=== PATIENT | female | born 1955 | race Caucasian/White ===

== ENCOUNTER 2016-10-13 16:05 | Inpatient (IN) | payer BC ==
[~2016-10-13] VITALS: Ht 167.6 cm; Wt 47.1 kg
[~2016-10-13 16:05] MED LIST: ADVI200T17 PO; CLOP75TA PO; ENAL10TA7 PO; FOSA70TA PO; MELA10TA PO; MUPI2OIN TOPICAL; TRAM50TA PO
[2016-10-13 16:07] VITALS: BP 201/94; PULSE 106; RESP 20; TEMP 98.1; O2SAT 97
[2016-10-13 16:18] VITALS: BP 202/94; PULSE 105; RESP 16; O2SAT 100
--- NOTE | 2016-10-13 16:36 | PD ---
HPI Chief Complaint: Pain: Acute or Chronic Time Seen by Provider: 16:25 Travel History International Travel<30 days: No Contact w/Intl Traveler<30days: No Traveled to known affect area: No History of Present Illness HPI 61-year-old female presents the emergency Department with worsening left second toe pain. Patient states that she's had trouble with this toe since last February. Originally she was evaluated for vascular issue and had stents placed in her left leg. But has continued to have a nonhealing wound on the tip of the second toe of the left foot. Patient has been seen by Dr. Marcelo who referred her for vascular surgery. Patient states she's had increasing pain and redness on the toe and on the dorsal foot over the past week. Patient saw her primary care physician Court Rea today and was referred to the ER for further evaluation and treatment. Patient states that the pain varies from 6-10 over to 10 over 10. She states walking makes it feel better. Patient has no history of diabetes. She does take medication for blood pressure. She states she's been taking Lortab at home without good pain control. She is allergic to codeine. PFSH Past Medical History Cancer: No Cardiovascular Problems: Yes Chest Pain: No Congestive Heart Failure: No Diabetes: No Endocrine: No Gastrointestinal Disorders: Yes GERD: No Glaucoma: No Genitourinary: No Hepatitis: No Hiatal Hernia: No Hypertension: Yes Immune Disorder: No Musculoskeletal: Yes Neurologic: No Psychiatric: No Reproductive: No Respiratory: No Integumentary: Yes Thyroid Disease: No Tetanus Vaccination: > 5 Years Influenza Vaccination: Yes Dilation and Curettage (D&C): Yes Past Surgical History Abdominal Surgery: No AICD: No Body Medical Devices: SCREWS IN L SHOULDER Cardiac Surgery: Yes (ANGIOGRAM WITH RUNOFF) Ear Surgery: No Endocrine Surgery: No Eye Surgery: No Genitourinary Surgery: No Gynecologic Surgery: Yes Joint Replacement: No Oral Surgery: Yes (T&A) Pacemaker: No Thoracic Surgery: No Social History Alcohol Use: No Tobacco Use: No Substance Use: No Allergies-Medications (Allergen,Severity, Reaction): Coded Allergies: Codeine (Verified Allergy, Mild, Dizziness, 10/13/16) Reported Meds & Prescriptions Reported Meds & Active Scripts Active Reported Mupirocin Topical (Mupirocin) 2 % Oint 1 Applic TOPICAL DAILY Clopidogrel (Clopidogrel Bisulfate) 75 Mg Tab 75 Mg PO DAILY Advil Pm (Ibuprofen-Diphenhydramine) 200-38 Mg Tab 2 Tab PO HS PRN Melatonin Cr (Melatonin) 10 Mg Tab 1 Tab PO HS Enalapril-Hydrochorothiazide (Enalapril-Hydrochlorothiazide) 10-25 Mg Tab 1 Tab PO DAILY Fosamax (Alendronate Sodium) 70 Mg Tab 70 Mg PO Q7D Review of Systems Except as stated in HPI: all other systems reviewed are Neg General / Constitutional: No: Fever Eyes: No: Visual changes HENT: No: Headaches Cardiovascular: No: Chest Pain or Discomfort Respiratory: No: Shortness of Breath Gastrointestinal: No: Abdominal Pain Genitourinary: No: Dysuria Musculoskeletal: No: Pain Skin: Positive Lesions, No Rash Neurologic: No: Weakness Psychiatric: No: Depression Endocrine: No: Polydipsia Hematologic/Lymphatic: No: Easy Bruising Physical Exam Narrative GENERAL: Patient is in moderate distress. SKIN: Warm and dry. Normal color. Normal turgor. Patient has obvious black eschar on the tip of the left second toe with localized swelling and erythema with lymphangitis along the dorsal left foot. No significant edema of the foot is noted. Pulses are present. HEAD: Atraumatic. Normocephalic. EYES: Pupils equal and round. No scleral icterus. No injection or drainage. ENT: No nasal bleeding or discharge. Mucous membranes pink and moist. NECK: Trachea midline. No JVD. CARDIOVASCULAR: Regular rate and rhythm. RESPIRATORY: No accessory muscle use. Clear to auscultation. Breath sounds equal bilaterally. MUSCULOSKELETAL: Extremities without clubbing, cyanosis, or edema. No obvious deformities. NEUROLOGICAL: Awake and alert. No obvious cranial nerve deficits. Motor grossly within normal limits. Five out of 5 muscle strength in the arms and legs. Normal speech. PSYCHIATRIC: Appropriate mood and affect; insight and judgment normal. Data Data Last Documented VS Vital Signs Date Time Temp Pulse Resp B/P Pulse Ox O2 Delivery O2 Flow Rate FiO2 10/13/16 18:13 16 10/13/16 18:00 91 181/84 100 Room Air 10/13/16 16:07 98.1 Orders Complete Blood Count With Diff (10/13/16 16:36) Blood Culture (10/13/16 16:36) Iv Access Insert/Monitor (10/13/16 16:36) Cefazolin Inj (Ancef Inj) (10/13/16 16:45) Clindamycin Inj (Cleocin Inj) (10/13/16 16:45) Comprehensive Metabolic Panel (10/13/16 16:36) Toe (Min 2vws) (10/13/16 17:20) Morphine Inj (Morphine Inj) (10/13/16 17:45) Consult Podiatry (10/13/16 ) Labs Laboratory Tests Test 10/13/16 16:45 White Blood Count 9.2 TH/MM3 Red Blood Count 3.85 MIL/MM3 Hemoglobin 11.9 GM/DL Hematocrit 34.7 % Mean Corpuscular Volume 90.2 FL Mean Corpuscular Hemoglobin 30.8 PG Mean Corpuscular Hemoglobin 34.2 % Concent Red Cell Distribution Width 14.5 % Platelet Count 236 TH/MM3 Mean Platelet Volume 8.2 FL Neutrophils (%) (Auto) 69.9 % Lymphocytes (%) (Auto) 21.6 % Monocytes (%) (Auto) 6.1 % Eosinophils (%) (Auto) 1.8 % Basophils (%) (Auto) 0.6 % Neutrophils # (Auto) 6.5 TH/MM3 Lymphocytes # (Auto) 2.0 TH/MM3 Monocytes # (Auto) 0.6 TH/MM3 Eosinophils # (Auto) 0.2 TH/MM3 Basophils # (Auto) 0.1 TH/MM3 CBC Comment DIFF FINAL Differential Comment Sodium Level 144 MEQ/L Potassium Level 3.5 MEQ/L Chloride Level 108 MEQ/L Carbon Dioxide Level 27.2 MEQ/L Anion Gap 9 MEQ/L Blood Urea Nitrogen 28 MG/DL Creatinine 1.03 MG/DL Estimat Glomerular Filtration 54 ML/MIN Rate Random Glucose 99 MG/DL Calcium Level 8.9 MG/DL Total Bilirubin 0.2 MG/DL Aspartate Amino Transf 17 U/L (AST/SGOT) Alanine Aminotransferase 20 U/L (ALT/SGPT) Alkaline Phosphatase 64 U/L Total Protein 6.9 GM/DL Albumin 3.9 GM/DL [facility] Medical Decision Making Medical Screen Exam Complete: Yes Emergency Medical Condition: Yes Differential Diagnosis Vascular deficiency left foot. Chronic left foot wound. Osteomyelitis. Narrative Course Patient is medically stable at time of exam. Labs ordered including CBC, CMP, PT PTT and INR, and blood cultures 2. IV access is obtained patient is given 4 mg morphine. X-ray of the left foot is ordered to evaluate for osteomyelitis. Call was placed to Dr. Marcelo and the patient is discussed. He recommends admission and consultation to him. 1814 hrs. call was placed to the hospitalist for admission. Dr. Marcelo has been consulted. Diagnosis Primary Impression: Ischemic ulcer of toe of left foot with necrosis of muscle Admitting Information Admitting Physician Requests: Admit Condition: Stable Simón East Oct 13, 2016 16:36
[2016-10-13] MEDS ORDERED: CLINDAMYCIN INJ 900 MG in SODIUM CHLORIDE 0.9% INJ 100 ML IV ONE (16:45)
[2016-10-13 17:00] VITALS: BP 163/77; PULSE 86; RESP 16; O2SAT 100
[2016-10-13 17:20] LABS: AUTOMATED NEUTROPHIL # 6.5 TH/MM3 (1.8-7.7); BASOPHIL # 0.1 TH/MM3 (0-0.2); BASOPHIL % 0.6 % (0.0-2.0); EOSINOPHIL # 0.2 TH/MM3 (0-0.4); EOSINOPHIL % 1.8 % (0.0-4.0); HEMATOCRIT 34.7 % (35.0-46.0); HEMO FLAGS DIFF FINAL; LYMPH % 21.6 % (9.0-44.0); MEAN CELL VOLUME 90.2 FL (80.0-100.0); MEAN CORPUSCULAR HEMOGLOBIN 30.8 PG (27.0-34.0); MEAN CORPUSCULAR HGB CONC 34.2 % (32.0-36.0); MONO % 6.1 % (0.0-8.0); NEUT % 69.9 % (16.0-70.0); PLATELET COUNT 236 TH/MM3 (150-450); RED BLOOD COUNT 3.85 MIL/MM3 (4.00-5.30); RED CELL DISTRIBUTION WIDTH 14.5 % (11.6-17.2); WHITE BLOOD COUNT 9.2 TH/MM3 (4.0-11.0)
--- NOTE | 2016-10-13 17:42 | RADRPT ---
EXAM DATE/TIME: 10/13/2016 17:31 [place] COMPARISON: No previous studies available for comparison. INDICATIONS : Left second toe infection for 6 months. Patient has had increased pain in last 10 days MEDICAL HISTORY : None. SURGICAL HISTORY : None. ENCOUNTER: Initial ACUITY: 4 - 6 months PAIN SCORE: 10/10 LOCATION: Left 2nd digit FINDINGS: Examination of the second digit of the left foot demonstrates no evidence of fracture or dislocation. No radiopaque foreign bodies are seen. There is soft tissue swelling at the distal aspect of the se cond digit. The bones are osteopenic. CONCLUSION: No bony destruction is seen. Rodo Martinez MD on October 13, 2016 at 17:40 Board Certified Radiologist. This report was verified electronically.
[2016-10-13] MEDS ORDERED: MORPHINE SULFATE 4 MG/ML INJ IV PUSH ONE (17:45)
[2016-10-13 18:00] VITALS: BP 181/84; PULSE 91; RESP 16; O2SAT 100
[2016-10-13 18:12] LABS: ALKALINE PHOSPHATASE 64 U/L (45-117); TOTAL BILIRUBIN ADULT 0.2 MG/DL (0.2-1.0)
[2016-10-13 18:15] LABS: ALT (GPT) 20 U/L (10-53); ANION GAP 9 MEQ/L (5-15); AST (GOT) 17 U/L (15-37); BICARBONATE 27.2 MEQ/L (21.0-32.0); BLOOD UREA NITROGEN 28 MG/DL (7-18); CHLORIDE 108 MEQ/L (98-107); GLOMERULAR FILTRATION RATE 54 ML/MIN (>89); POTASSIUM 3.5 MEQ/L (3.5-5.1); SODIUM (NA) 144 MEQ/L (136-145)
--- NOTE | 2016-10-13 18:57 | PD ---
Data Data Last Documented VS Vital Signs Date Time Temp Pulse Resp B/P Pulse Ox O2 Delivery O2 Flow Rate FiO2 10/13/16 18:13 16 10/13/16 18:00 91 181/84 100 Room Air 10/13/16 16:07 98.1 Orders Complete Blood Count With Diff (10/13/16 16:36) Blood Culture (10/13/16 16:36) Iv Access Insert/Monitor (10/13/16 16:36) Cefazolin Inj (Ancef Inj) (10/13/16 16:45) Clindamycin Inj (Cleocin Inj) (10/13/16 16:45) Comprehensive Metabolic Panel (10/13/16 16:36) Toe (Min 2vws) (10/13/16 17:20) Morphine Inj (Morphine Inj) (10/13/16 17:45) Consult Podiatry (10/13/16 ) Labs Laboratory Tests Test 10/13/16 16:45 White Blood Count 9.2 TH/MM3 Red Blood Count 3.85 MIL/MM3 Hemoglobin 11.9 GM/DL Hematocrit 34.7 % Mean Corpuscular Volume 90.2 FL Mean Corpuscular Hemoglobin 30.8 PG Mean Corpuscular Hemoglobin 34.2 % Concent Red Cell Distribution Width 14.5 % Platelet Count 236 TH/MM3 Mean Platelet Volume 8.2 FL Neutrophils (%) (Auto) 69.9 % Lymphocytes (%) (Auto) 21.6 % Monocytes (%) (Auto) 6.1 % Eosinophils (%) (Auto) 1.8 % Basophils (%) (Auto) 0.6 % Neutrophils # (Auto) 6.5 TH/MM3 Lymphocytes # (Auto) 2.0 TH/MM3 Monocytes # (Auto) 0.6 TH/MM3 Eosinophils # (Auto) 0.2 TH/MM3 Basophils # (Auto) 0.1 TH/MM3 CBC Comment DIFF FINAL Differential Comment Sodium Level 144 MEQ/L Potassium Level 3.5 MEQ/L Chloride Level 108 MEQ/L Carbon Dioxide Level 27.2 MEQ/L Anion Gap 9 MEQ/L Blood Urea Nitrogen 28 MG/DL Creatinine 1.03 MG/DL Estimat Glomerular Filtration 54 ML/MIN Rate Random Glucose 99 MG/DL Calcium Level 8.9 MG/DL Total Bilirubin 0.2 MG/DL Aspartate Amino Transf 17 U/L (AST/SGOT) Alanine Aminotransferase 20 U/L (ALT/SGPT) Alkaline Phosphatase 64 U/L Total Protein 6.9 GM/DL Albumin 3.9 GM/DL MDM Supervised Visit with TESSIE: Yes Narrative Course I, Dr. Kimbrough, have reviewed the advance practice practioner's documentation and am in agreement, met with the patient face to face, made the diagnosis, and the medical decision making was done by me. *My assessment and Findings: 61-year-old female vasculopath here with complaint of pain in the left second toe that she is had troubles with since February. History of vascular evaluation with Dr. Cobos and podiatry evaluation with Dr. Marcelo. Patient has been having increasing pain, redness and necrosis of the toe over the course the last week prompting ER visit. Moderate pain on exam, distal pulses are diminished albeit present. The toe is necrotic- appearing, dusky. Differential includes dry gangrene, peripheral vascular disease, osteomyelitis. Podiatry consulted and agrees with admission for vascular evaluation and amputation. Vascular surgery consult placed for her vascular surgeon Dr. Cobos and patient will be admitted to medicine for further management. Diagnosis Primary Impression: Ischemic ulcer of toe of left foot with necrosis of muscle Condition: Stable Amy Kimbrough MD Oct 13, 2016 18:56
[2016-10-13] MEDS ORDERED: HYDROmorphone HCL PF 1 MG/ML VIAL IV PUSH ONE (19:00)
[2016-10-13 19:11] VITALS: BP 161/83; PULSE 97; RESP 18; O2SAT 98
[2016-10-13] MEDS ORDERED: ACETAMINOPHEN 325 MG TAB PO PRN (19:15)
[2016-10-13] MEDS ORDERED: SODIUM CHLORIDE 0.9% FLUSH 5 ML FLUSH FLUSH PRN (19:15)
[2016-10-13] MEDS ORDERED: BISACODYL 10 MG SUPP PR PRN (19:15)
--- NOTE | 2016-10-13 19:15 | HHI.HP ---
HPI Service [facility] Primary Care Physician Non-Staff Admission Diagnosis Ischemic Necrotic Toe/Cellulitis Diagnoses: (1) Ischemic ulcer of toe of left foot with necrosis of muscle Diagnosis: Principal (2) HTN (hypertension) Diagnosis: Principal (3) Renal insufficiency Diagnosis: Principal Travel History International Travel<30 Days: No Contact w/Intl Traveler <30 Da: No Traveled to Known Affected Are: No History of Present Illness This is a 61-year-old female with a PMH of HTN, PVD and Chronic Foot Ulcer who was referred to the ER by her PCP for admission secondary to increasing left toe pain. Per patient, she has had ongoing left toe ulcer since February and has been following with Dr. Marcelo as outpatient. Seen today by PCP and found to have worsening necrosis of left 2nd toe, referred to ER for eval by Vascular Sx. Denies fever or chills. Reports small "blister" at bottom of 2nd right toe as well, states that has been ongoing for few days. On arrival, BP 201/94, HR 106, O2 sat 97% on RA, Afebrile. CBC essentially unremarkable. Creatinine 1.03, produces 0.82 on 07/17/16. Toe X-ray with no bony destruction. Dr. Marcelo and Dr. Cobos consulted by ER physician, will evaluate for possible intervention. S/p Blood Cultures, Clinda and Ancef IV. Review of Systems Except as stated in HPI: all other systems reviewed are Neg ROS: 14 point review of systems otherwise negative. Past Family Social History Past Medical History PMH: HTN, PVD and Chronic Foot Ulcer Past Surgical History PAST SURGICAL HISTORY: Tonsillectomy, Left Shoulder Surgery Allergies: Coded Allergies: Codeine (Verified Allergy, Mild, Dizziness, 10/13/16) Family History PAST FAMILY HISTORY: Reviewed. No h/o DM or CAD Social History PAST SOCIAL HISTORY: Negative for alcohol, tobacco or drugs. Physical Exam Vital Signs Vital Signs Date Time Temp Pulse Resp B/P Pulse Ox O2 Delivery O2 Flow Rate FiO2 10/13/16 19:11 97 18 161/83 98 Room Air 10/13/16 18:13 16 10/13/16 18:00 91 16 181/84 100 Room Air 10/13/16 17:00 86 16 163/77 100 Room Air 10/13/16 16:24 100 16 10/13/16 16:18 105 16 202/94 100 10/13/16 16:07 98.1 106 20 201/94 97 Room Air Physical Exam PE: GENERAL: Middle-aged thin white female in no acute distress. HEENT: PERRLA, EOMI. No scleral icterus or conjunctival pallor. No lid lag or facial droop. CARDIOVASCULAR: Regular rate and rhythm. No obvious murmurs to auscultation. No chest tenderness to palpation. RESPIRATORY: No obvious rhonchi or wheezing. Clear to auscultation. Breath sounds equal bilaterally. GASTROINTESTINAL: Abdomen soft, non-tender, nondistended. BS normal. MUSCULOSKELETAL: Extremities without clubbing or edema. No obvious deformities. Left 2nd toe w/ chronic ulcer and underlying necrosis, tenderness to palpation, erythema along dorsum of left foot. Right 2nd toe w/ small ulcer at base and surrounding discoloration. Pulses intact. NEUROLOGICAL: Awake, alert and oriented x4. No focal neurologic deficits. Moving both upper and lower extremities spontaneously. Laboratory Laboratory Tests Test 10/13/16 16:45 White Blood Count 9.2 Red Blood Count 3.85 Hemoglobin 11.9 Hematocrit 34.7 Mean Corpuscular Volume 90.2 Mean Corpuscular Hemoglobin 30.8 Mean Corpuscular Hemoglobin 34.2 Concent Red Cell Distribution Width 14.5 Platelet Count 236 Mean Platelet Volume 8.2 Neutrophils (%) (Auto) 69.9 Lymphocytes (%) (Auto) 21.6 Monocytes (%) (Auto) 6.1 Eosinophils (%) (Auto) 1.8 Basophils (%) (Auto) 0.6 Neutrophils # (Auto) 6.5 Lymphocytes # (Auto) 2.0 Monocytes # (Auto) 0.6 Eosinophils # (Auto) 0.2 Basophils # (Auto) 0.1 CBC Comment DIFF FINAL Differential Comment Sodium Level 144 Potassium Level 3.5 Chloride Level 108 Carbon Dioxide Level 27.2 Anion Gap 9 Blood Urea Nitrogen 28 Creatinine 1.03 Estimat Glomerular Filtration 54 Rate Random Glucose 99 Calcium Level 8.9 Total Bilirubin 0.2 Aspartate Amino Transf 17 (AST/SGOT) Alanine Aminotransferase 20 (ALT/SGPT) Alkaline Phosphatase 64 Total Protein 6.9 Albumin 3.9 Date/Time Procedure Status Source Growth 10/13/16 16:55 Aerobic Blood Culture Received Blood Peripheral Pending 10/13/16 16:55 Anaerobic Blood Culture Received Blood Peripheral Pending Result Diagram: 10/13/16 1645 10/13/16 1645 Assessment and Plan Problem List: (1) Ischemic ulcer of toe of left foot with necrosis of muscle ICD Code: L97.523 Status: Acute (2) HTN (hypertension) ICD Code: I10 Status: Acute (3) Renal insufficiency ICD Code: N28.9 Status: Acute Assessment and Plan A/P: 1. Left Toe Ulcer/Ischemia: Chronic. Left 2nd toe chronic ulcer w/ underlying necrosis, progressively worse w/ significantly increased pain, surrounding erythema. Follows w/ Dr. Marcelo and Dr. Almazan as outpatient , consults placed by ER physician. S/p blood cultures, Clinda/Ancef. Will follow up blood cultures, continue w/ IV Abx. 2. HTN: Uncontrolled. BP on arrival, 201/94, HR 106, likely compounded by pain complaints, currently BP 161/83, HR 97. Will monitor. 3. Renal Insufficiency: Creatinine 1.03, previously 0.82 on 07/17/16, IVF for hydration, repeat labs in am. 4. DVT Prophylaxis: Heparin sq 5. Social work for d/c planning as needed. 6. Case discussed w/ ER physician at length. Physician Certification 2 Midnight Certification Type: Admission for Inpatient Services Order for Inpatient Services The services are ordered in accordance with Medicare regulations or non- Medicare payer requirements, as applicable. In the case of services not specified as inpatient-only, they are appropriately provided as inpatient services in accordance with the 2-midnight benchmark. Estimated LOS (days): 2 days is the estimated time the patient will need to remain in the hospital, assuming treatment plan goals are met and no additional complications. Post-Hospital Plan: Not yet determined Albina Joiner MD Oct 13, 2016 19:15
[2016-10-13] MEDS: SODIUM CHLORIDE 0.9% FLUSH 5 ML FLUSH FLUSH SCH (20:38)
[2016-10-13] MEDS: SODIUM CHLOR 0.9% 1000 ML INJ 1,000 ML IV SCH (20:38)
[2016-10-13] MEDS: ONDANSETRON HCL 4 MG/2 ML VIAL IVP PRN (21:55)
[2016-10-13 22:00] VITALS: BP 162/85; PULSE 85; RESP 17; TEMP 96.8; O2SAT 99
[2016-10-13] MEDS: CLINDAMYCIN INJ 900 MG in SODIUM CHLORIDE 0.9% INJ 100 ML IV SCH (23:44)
[2016-10-13] MEDS: MORPHINE SULFATE 4 MG/ML INJ IV PRN (23:45)
[2016-10-14 00:54] VITALS: BP 151/92; PULSE 81; RESP 17; TEMP 97; O2SAT 100
[2016-10-14] MEDS: MORPHINE SULFATE 4 MG/ML INJ IV PRN ×4 (02:50→12:36)
[2016-10-14] MEDS: SODIUM CHLOR 0.9% 1000 ML INJ 1,000 ML IV SCH ×2 (02:55→15:33)
[2016-10-14 04:21] VITALS: BP 114/61; PULSE 89; RESP 17; TEMP 97; O2SAT 100
[2016-10-14] MEDS: ONDANSETRON HCL 4 MG/2 ML VIAL IVP PRN ×3 (05:35→15:30)
[2016-10-14 07:32] LABS: AUTOMATED NEUTROPHIL # 3.5 TH/MM3 (1.8-7.7); BASOPHIL % 0.6 % (0.0-2.0); EOSINOPHIL # 0.1 TH/MM3 (0-0.4); EOSINOPHIL % 2.6 % (0.0-4.0); HEMATOCRIT 32.4 % (35.0-46.0); HEMO FLAGS DIFF FINAL; LYMPH % 25.3 % (9.0-44.0); LYMPHOCYTE # 1.4 TH/MM3 (1.0-4.8); MEAN CELL VOLUME 90.7 FL (80.0-100.0); MEAN CORPUSCULAR HEMOGLOBIN 30.3 PG (27.0-34.0); MEAN CORPUSCULAR HGB CONC 33.4 % (32.0-36.0); MONO % 9.1 % (0.0-8.0); NEUT % 62.4 % (16.0-70.0); PLATELET COUNT 174 TH/MM3 (150-450); RED BLOOD COUNT 3.57 MIL/MM3 (4.00-5.30); RED CELL DISTRIBUTION WIDTH 14.6 % (11.6-17.2); WHITE BLOOD COUNT 5.6 TH/MM3 (4.0-11.0)
[2016-10-14 07:54] LABS: ALKALINE PHOSPHATASE 51 U/L (45-117); ALT (GPT) 12 U/L (10-53); ANION GAP 5 MEQ/L (5-15); AST (GOT) 12 U/L (15-37); BICARBONATE 29.8 MEQ/L (21.0-32.0); BLOOD UREA NITROGEN 22 MG/DL (7-18); CHLORIDE 110 MEQ/L (98-107); GLOMERULAR FILTRATION RATE 58 ML/MIN (>89); SODIUM (NA) 145 MEQ/L (136-145); TOTAL BILIRUBIN ADULT 0.3 MG/DL (0.2-1.0)
[2016-10-14 08:00] VITALS: BP 118/68; PULSE 90; RESP 18; TEMP 98.1; O2SAT 100
[2016-10-14] MEDS: CLINDAMYCIN INJ 900 MG in SODIUM CHLORIDE 0.9% INJ 100 ML IV SCH ×2 (08:12→15:31)
--- NOTE | 2016-10-14 08:50 | HHI.PR ---
Subjective Remarks Patient seen and examined this morning. She is asking for medication for nausea and vomiting. She states she is trying to eat breakfast this morning and that she feels hungry, but when she eats she feels nauseous. She is able to drink plain water without difficulty. States her pain is controlled with morphine, but that she feels nauseous after she gets the morphine. She denies fevers or chills, chest pain or shortness of breath. Patient asks what is being done to take care of her toe, stating "no one addresses the toe". Discussed that she is on antibiotics for infection. She asks if the toe is going to be removed. Patient states regarding the toe "take it off or I'm going to do it", because it is "driving me crazy". Objective Vital Signs Date Time Temp Pulse Resp B/P Pulse Ox O2 Delivery O2 Flow Rate FiO2 10/14/16 08:00 98.1 90 18 118/68 100 10/14/16 04:21 97.0 89 17 114/61 100 10/14/16 00:54 97.0 81 17 151/92 100 10/13/16 22:00 96.8 85 17 162/85 99 10/13/16 19:11 97 18 161/83 98 Room Air 10/13/16 18:13 16 10/13/16 18:00 91 16 181/84 100 Room Air 10/13/16 17:00 86 16 163/77 100 Room Air 10/13/16 16:24 100 16 10/13/16 16:18 105 16 202/94 100 10/13/16 16:07 98.1 106 20 201/94 97 Room Air I/O 10/13/16 10/13/16 10/13/16 10/14/16 10/14/16 10/14/16 07:00 15:00 23:00 07:00 15:00 23:00 Intake Total 450 ml 845 ml Balance 450 ml 845 ml Intake Oral 120 ml IV Total 450 ml 725 ml # Voids 2 Result Diagram: 10/14/16 0710 10/14/16 0710 Imaging Last Impressions Toe X-Ray 10/13/16 1720 Signed Impressions: Service Date/Time: Thursday, October 13, 2016 17:31 - CONCLUSION: No bony destruction is seen. Rodo Martinez MD Objective Remarks GENERAL: Middle-aged thin white female in no acute distress. HEENT: PERRLA, EOMI. No scleral icterus or conjunctival pallor. CARDIOVASCULAR: Regular rate and rhythm. No obvious murmurs to auscultation. . RESPIRATORY: No obvious rhonchi or wheezing. Clear to auscultation. Breath sounds equal bilaterally. GASTROINTESTINAL: Abdomen soft, non-tender, nondistended. BS normal. MUSCULOSKELETAL: Extremities without clubbing or edema. No obvious deformities. Left 2nd toe w/ chronic ulcer and underlying necrosis, tenderness to palpation, erythema along dorsum of left foot. Right 2nd toe w/ small ulcer at base and surrounding discoloration. Pulses intact. NEUROLOGICAL: Awake, alert and oriented x4. No focal neurologic deficits. Moving both upper and lower extremities spontaneously. 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 Left Toe Ulcer/Ischemia: Chronic. Left 2nd toe chronic ulcer w/ underlying necrosis, progressively worse w/ significantly increased pain, surrounding erythema. Follows w/ Dr. Marcelo and Dr. Heller as outpatient , consults placed. CTA with distal runoff ordered, may need at least a partial amputation of the second toe of the left foot. Blood cultures NGTD x1 day, continue w/ IV Abx Clinda/Ancef. 2. HTN: Uncontrolled on arrival at 201/94, HR 106, likely compounded by pain complaints. Currently BP normal at 124/64 and heart rate 78. Will monitor. 3. Renal Insufficiency: Creatinine 1.03-> 0.97, previously 0.82 on 07/17/16, improved s/p IVF for hydration. Continue IVF. Repeat labs in am. 4. DVT Prophylaxis: Heparin sq 5. Social work for d/c planning as needed. Problem Qualifiers (1) HTN (hypertension): Qualified Code: I15.9 - Secondary hypertension Shante Laughlin MD Oct 14, 2016 08:50
[2016-10-14] MEDS: SODIUM CHLORIDE 0.9% FLUSH 5 ML FLUSH FLUSH SCH (08:59)
[2016-10-14] MEDS ORDERED: METOPROLOL TARTRATE 25 MG TAB PO SCH (09:00)
[2016-10-14] MEDS ORDERED: CEFEPIME INJ 1,000 MG in SODIUM CHLORIDE 0.9% INJ 100 ML IV SCH (09:00)
[2016-10-14] MEDS ORDERED: HEPARIN SODIUM - SQ 10,000 UNITS/ML VIAL SQ SCH (09:00)
--- NOTE | 2016-10-14 10:15 | PD.WOU.CON ---
Patient Intake Chief Complaint Painful ischemic toes bilaterally Consult Requested by [facility] emergency department physicians Reason for Consult Evaluation for possible amputation of necrotic digit Primary Care Physician Non-Staff History of Present Illness Patient is a 61-year-old female former smoker placed on my office in May of last year. At that time she had ischemic changes at the distal tip of the second toe of the left foot. She was referred out to Dr. sam from vascular surgery and underwent an endovascular procedure with opening of the SFA and popliteal region. There was reconstitution at the posterior tibial but no dorsalis pedis pulse was obtained. Patient was informed to return to my office if the problems got worse. Over the last few days she's developed more cyanotic changes of the lesser toes of left foot and the second toe of the right foot. She presented to [facility] emergency department was admitted. I was consulted as well as vascular surgery. Patient quit smoking after her endovascular procedure. She is having rest pain and night pain. Coded Allergies: Codeine (Verified Allergy, Mild, Dizziness, 10/13/16) Preferred Language to Discuss: Bulgarian Barriers to Learning: None Teaching Method: Discussion Vital Signs Date Time Temp Pulse Resp B/P Pulse Ox O2 Delivery O2 Flow Rate FiO2 10/14/16 08:00 98.1 90 18 118/68 100 10/14/16 04:21 97.0 89 17 114/61 100 10/14/16 00:54 97.0 81 17 151/92 100 10/13/16 22:00 96.8 85 17 162/85 99 10/13/16 19:11 97 18 161/83 98 Room Air 10/13/16 18:13 16 10/13/16 18:00 91 16 181/84 100 Room Air 10/13/16 17:00 86 16 163/77 100 Room Air 10/13/16 16:24 100 16 10/13/16 16:18 105 16 202/94 100 10/13/16 16:07 98.1 106 20 201/94 97 Room Air Pain scale used: 0-10 numeric scale Pain score: 8 Medications Current Medications Cefazolin Sodium 1000 mg/Sodium Chloride 100 ml @ 200 mls/hr ONCE ONCE IV Last administered on 10/13/16t 17:02; Start 10/13/16 at 16:45; Stop 10/13/16 at 17:14; Status DC Clindamycin Phosphate/Sodium Chloride (Cleocin Inj/NS Inj) 106 ml @ 200 mls/hr ONCE ONCE IV Last administered on 10/13/16 17:38; Start 10/13/16 at 16:45; Stop 10/13/16 at 17:16; Status DC Morphine Sulfate (Morphine Inj) 4 mg ONCE ONCE IV PUSH Last administered on 18:00; Start 10/13/16 at 17:45; Stop 10/13/16 at 17:46; Status DC Hydromorphone HCl 1 mg 1 mg ONCE ONCE IV PUSH Last administered on 10/13/16 19:11; Start 10/13/16 at 19:00; Stop 10/13/16 at 19:01; Status DC Sodium Chloride (NS 1000 ml Inj) 1,000 ml @ 100 mls/hr Q10H IV Last administered on 10/14/16 02:55; Start 10/13/16 at 20:00 IV Flush (NS Flush) 2 ml UNSCH PRN FLUSH FLUSH AFTER USING IV ACCESS; Start at 19:15 IV Flush (NS Flush) 2 ml BID FLUSH ; Start 10/13/16 at 21:00 Ondansetron HCl (Zofran Inj) 4 mg Q6H PRN IVP NAUSEA OR VOMITING Last administered on 10/14/16 05:35; Start 10/13/16 at 19:15 Bisacodyl (Dulcolax Supp) 10 mg DAILY PRN [place] CONSTIPATION; Start 10/13/16 at 19 :15 Acetaminophen (Tylenol) 650 mg Q6H PRN PO FEVER/PAIN SCALE 1 TO 2; Start at 19:15 Morphine Sulfate 2 mg 2 mg Q3H PRN IV Pain 6-10 Last administered on 10/14/16 09:00; Start 10/13/16 at 19:15 Clindamycin Phosphate 900 mg/ Sodium Chloride 106 ml @ 212 mls/hr Q8H IV Last administered on 10/14/16 08:12; Start 10/14/16 at 00:00 Cefepime HCl/ Sodium Chloride (Maxipime Inj/NS Inj) 100 ml @ 200 mls/hr Q12H IV Last administered on 10/14/16 08:59; Start 10/14/16 at 09:00 Metoprolol Tartrate (Lopressor) 25 mg Q12HR PO Last administered on 10/14/16 08:56; Start 10/14/16 at 09:00 Heparin Sodium (Porcine) (Heparin Inj) 5,000 units Q12HR SQ Last administered on 10/14/16 08:59; Start 10/14/16 at 09:00 Past, Family & Social History Past Medical History PFSH Reviewed: Yes Cardiovascular: REPORTS HX OF: Hypertension, Peripheral vascular dz Musculoskeletal: REPORTS HX OF: Osteoporosis Past Surgical History HEENT: REPORTS HX OF: Dental surgery (wisdom teeth), Tonsillectomy Cardiovascular: REPORTS HX OF: Angioplasty (left lower extremity) Gastrointestinal: DENIES HX OF: Colectomy, total Gynecologic: REPORTS HX OF: 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 ), DENIES HX OF: Hysterectomy Musculoskeletal: REPORTS HX OF: Other musculoskeletal srg (left shoulder 2002, right carpal tunnel 1994) Breast: DENIES HX OF: Mastectomy, bilateral, Mastectomy, left, Mastectomy, right Family Medical History Patient History: FH: congestive heart failure G8 FATHER, , Age:79 G8 MOTHER, , Age:82 Substance Use Substance use: Denies use Review of Systems Constitutional: COMPLAINS OF: Good general health, Pain Wound Assessment Wound Information - Wound One Wound Location: distal left second toe Wound Type: Ischemic Classification: Other Pressure Staging: Necrotic Fibrin Amount: None Granulation Tissue Color: None Granulation Tissue Texture: N/A Exposed: No exposed bone, muscle, tendon Eschar: Yes Odor: No Wound Two Wound Location: plantar right second toe Wound Type: Ischemic Classification: PT- partial thickness Exudate: None Exudate Type: N/A Debridement: No Fibrin Amount: None Granulation Tissue Color: None Granulation Tissue Texture: N/A Exposed: No exposed bone, muscle, tendon Physical Exam General appearance: comfortable Nutritional status: underweight Orientation: alert and oriented x3 Skin: FINDINGS: other Hair: normal Head: normocephalic/atraumatic Eyes: PERRL Ears, nose, mouth, throat: no ear deformities Hearing, right ear: normal Hearing, left ear: normal Neck: FINDINGS: normal Chest appearance: normal Respiratory effort: FINDINGS: normal Abdomen: FINDINGS: normal appearance Details Deferred Peripheral pulses: Left posterior tibial: dopplerable Left dorsalis pedis: absent Cranial nerves II-XII intact: Yes Mental status: grossly normal Affect: flat Judgment: normal Lab and Radiology Results Laboratory Laboratory Tests Test 10/13/16 10/14/16 16:45 07:10 White Blood Count 9.2 TH/MM3 5.6 TH/MM3 Red Blood Count 3.85 MIL/MM3 3.57 MIL/MM3 Hemoglobin 11.9 GM/DL 10.8 GM/DL Hematocrit 34.7 % 32.4 % Mean Corpuscular Volume 90.2 FL 90.7 FL Mean Corpuscular Hemoglobin 30.8 PG 30.3 PG Mean Corpuscular Hemoglobin 34.2 % 33.4 % Concent Red Cell Distribution Width 14.5 % 14.6 % Platelet Count 236 TH/MM3 174 TH/MM3 Mean Platelet Volume 8.2 FL 7.9 FL Neutrophils (%) (Auto) 69.9 % 62.4 % Lymphocytes (%) (Auto) 21.6 % 25.3 % Monocytes (%) (Auto) 6.1 % 9.1 % Eosinophils (%) (Auto) 1.8 % 2.6 % Basophils (%) (Auto) 0.6 % 0.6 % Neutrophils # (Auto) 6.5 TH/MM3 3.5 TH/MM3 Lymphocytes # (Auto) 2.0 TH/MM3 1.4 TH/MM3 Monocytes # (Auto) 0.6 TH/MM3 0.5 TH/MM3 Eosinophils # (Auto) 0.2 TH/MM3 0.1 TH/MM3 Basophils # (Auto) 0.1 TH/MM3 0.0 TH/MM3 CBC Comment DIFF FINAL DIFF FINAL Differential Comment Laboratory Tests Test 10/13/16 10/14/16 16:45 07:10 Sodium Level 144 MEQ/L 145 MEQ/L Potassium Level 3.5 MEQ/L 4.0 MEQ/L Chloride Level 108 MEQ/L 110 MEQ/L Carbon Dioxide Level 27.2 MEQ/L 29.8 MEQ/L Anion Gap 9 MEQ/L 5 MEQ/L Blood Urea Nitrogen 28 MG/DL 22 MG/DL Creatinine 1.03 MG/DL 0.97 MG/DL Estimat Glomerular Filtration 54 ML/MIN 58 ML/MIN Rate Random Glucose 99 MG/DL 88 MG/DL Calcium Level 8.9 MG/DL 8.0 MG/DL Total Bilirubin 0.2 MG/DL 0.3 MG/DL Aspartate Amino Transf 17 U/L 12 U/L (AST/SGOT) Alanine Aminotransferase 20 U/L 12 U/L (ALT/SGPT) Alkaline Phosphatase 64 U/L 51 U/L Total Protein 6.9 GM/DL 5.9 GM/DL Albumin 3.9 GM/DL 3.2 GM/DL Microbiology Date/Time Procedure Status Source Growth 10/13/16 16:50 Aerobic Blood Culture Received Blood Peripheral Pending 10/13/16 16:50 Anaerobic Blood Culture Received Blood Peripheral Pending 10/13/16 16:55 Aerobic Blood Culture Received Blood Peripheral Pending 10/13/16 16:55 Anaerobic Blood Culture Received Blood Peripheral Pending Radiology Last Impressions Toe X-Ray 10/13/16 1720 Signed Impressions: Service Date/Time: Thursday, October 13, 2016 17:31 - CONCLUSION: No bony destruction is seen. 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 Discussed patient with Dr. Heller from vascular surgery. Patient most likely will need at least a partial amputation of the second toe of the left foot, however we need to be sure of her ability to heal. Continue to follow. Problem Qualifiers (1) HTN (hypertension): Qualified Code: I15.9 - Secondary hypertension Hernando Marcelo DPM Oct 14, 2016 10:15
[2016-10-14 12:00] VITALS: BP 126/62; PULSE 75; RESP 18; TEMP 97.9; O2SAT 100
[2016-10-14] MEDS ORDERED: IOHEXOL 350 MG/ML 10 ML VIAL (for RAD DIAG) IV ONE (12:40)
--- NOTE | 2016-10-14 13:03 | RADRPT ---
EXAM DATE/TIME: 10/14/2016 11:06 [facility] COMPARISON: No previous studies available for comparison. INDICATIONS : Necrotic second digit of left foot. IV CONTRAST: 99 cc Omnipaque 350 (iohexol) IV RADIATION DOSE: 1.12 CTDIvol (mGy) MEDICAL HISTORY : coronary artery disease SURGICAL HISTORY : angioplasty ENCOUNTER: Initial ACUITY: 1 day PAIN SCALE: 0/10 LOCATION: Left foot TECHNIQUE: Volumetric scanning was performed using a multi-row detector CT scanner. The data was post processed with a variety of visualization algorithms including full volume maximum intensity projection, multi -planar sliding thin slab reformation, curved planar reformation, and surface rendering techniques. Using automated exposure control and adjustment of the mA and/or kV according to patient size, radiat ion dose was kept as low as reasonably achievable to obtain optimal diagnostic quality images. FINDINGS: ABDOMINAL AORTA: There is diffuse atherosclerotic changes throughout the abdominal aorta. No aneurysmal dilatation is demonstrated. The celiac, SMA and renal arteries are patent. BIFURCATION: Atherosclerotic changes of the bifurcation. RIGHT PELVIS: There are atherosclerotic changes of the right common iliac artery. No high-grade stenosis is seen. T he external iliac and common femoral artery. LEFT PELVIS: The left common iliac artery and internal vessel vessels are patent. The common femoral artery is pat ent. No high-grade stenosis. RIGHT THIGH: The superficial femoral and profunda vessels are patent.. LEFT THIGH: The superficial femoral and profunda vessels are patent.. RIGHT KNEE: The popliteal artery is patent with some mild irregularity. No high-grade stenosis. LEFT KNEE: The popliteal is patent with some rib laterally. No high-grade stenosis. RIGHT LEG: The trifurcation is intact. 2 vessel runoff down to the ankle. LEFT LEG: The trifurcation is intact. 2 vessel runoff down to the ankle. Nonspecific 5 nonspecific pulmonary nodule right lung base. CONCLUSION: 1. Atherosclerotic changes in the aorta and pelvic vessels without focal or high-grade stenosis. 2. 2 vessel runoff down to the ankles. 3. Nonspecific 5 mm pulmonary nodule right lung base. On a nonemergent outpatient basis, recommend a noncontrast CT thorax for further evaluation. Dorian Vela MD on October 14, 2016 at 12:49 Board Certified Radiologist. This report was verified electronically.
[2016-10-14 16:00] VITALS: BP 124/64; PULSE 78; RESP 16; TEMP 97.1; O2SAT 100
[2016-10-14] MEDS ORDERED: MORPHINE SULFATE 4 MG/ML INJ IV PRN (16:15)
[2016-10-14] MEDS ORDERED: oxyCODONE/ACETAMINOPHEN 10 MG/325 MG TAB PO PRN (16:15)
--- NOTE | 2016-10-14 18:01 | PD.VS.CON ---
History of Present Illness Chief Complaint: left 2nd toe pain with nonhealing wound. Consult Requested by: Dr. Neal History of Present Illness 61 yr old female with hx of a left 2nd toe that is painful and discolored. Hx of left lower extremity revascularization with SFA endarterectomy and patch with endovascular balloon angioplasty of the popliteal artery (June 2016). Left 2nd toe was nearly healed but now is discolored again and painful over the tip of the toe. Also has a small less than 2mm wound over the plantar pad of the right 2nd toe. Patient has stopped smoking. Patient has not followed up with either me or Dr. Neal once her toe deteriorated. She has my cell phone number. Past/Family/Social History Past Medical History Past Medical History PMH: HTN, PVD and Chronic Foot Ulcer Past Surgical History PAST SURGICAL HISTORY: Tonsillectomy, Left Shoulder Surgery Allergies: Coded Allergies: Codeine (Verified Allergy, Mild, Dizziness, 10/13/16) Family History PAST FAMILY HISTORY: Reviewed. No h/o DM or CAD Social History PAST SOCIAL HISTORY: Negative for alcohol, tobacco or drugs. Home Medications Reported Medications Mupirocin Topical 2 % Oint1 Applic TOPICAL DAILY #1 TUBE Ref 0 08/07/16 Clopidogrel 75 Mg Tab75 Mg PO DAILY #30 TAB Ref 0 07/17/16 Ibuprofen-Diphenhydramine (Advil Pm)200-38 Mg Tab2 Tab PO HS PRN (PAIN/SLEEP) Ref 0 07/14/16 Melatonin (Melatonin Cr)10 Mg Tab1 Tab PO HS 06/29/16 Enalapril-Hydrochlorothiazide (Enalapril-Hydrochorothiazide)10-25 Mg Tab1 Tab PO DAILY 06/29/16 Alendronate (Fosamax)70 Mg Tab70 Mg PO Q7D #4 TAB Ref 0 06/29/16 Discontinued Reported Medications Tramadol 50 Mg Tab50 Mg PO Q4H PRN (PAIN) Ref 0 06/29/16 Coded Allergies: Codeine (Verified Allergy, Mild, Dizziness, 10/13/16) Physical Exam Vitals/I&O Date Time Temp Pulse Resp B/P Pulse Ox O2 Delivery O2 Flow Rate FiO2 10/14/16 16:00 97.1 78 16 124/64 100 10/14/16 12:00 97.9 75 18 126/62 100 10/14/16 08:00 98.1 90 18 118/68 100 10/14/16 04:21 97.0 89 17 114/61 100 10/14/16 00:54 97.0 81 17 151/92 100 10/13/16 22:00 96.8 85 17 162/85 99 10/13/16 19:11 97 18 161/83 98 Room Air 10/13/16 18:13 16 10/13/16 18:00 91 16 181/84 100 Room Air 10/14/16 10/14/16 10/14/16 07:00 15:00 23:00 Intake Total 845 ml 480 ml Balance 845 ml 480 ml Heart: regular Lungs: CTA bilaterally Vascular: palpable femoral pulses bilaterally. Bilateral PT and DP with triphasic signals. left 2nd interdigital signal audible. Left 2nd toe with discoloration via the distal IP joint. right 2nd toe with 2 mm area under the pad with denuded skin. Laboratory Tests Test 10/14/16 07:10 White Blood Count 5.6 Red Blood Count 3.57 Hemoglobin 10.8 Hematocrit 32.4 Mean Corpuscular Volume 90.7 Mean Corpuscular Hemoglobin 30.3 Mean Corpuscular Hemoglobin 33.4 Concent Red Cell Distribution Width 14.6 Platelet Count 174 Mean Platelet Volume 7.9 Neutrophils (%) (Auto) 62.4 Lymphocytes (%) (Auto) 25.3 Monocytes (%) (Auto) 9.1 Eosinophils (%) (Auto) 2.6 Basophils (%) (Auto) 0.6 Neutrophils # (Auto) 3.5 Lymphocytes # (Auto) 1.4 Monocytes # (Auto) 0.5 Eosinophils # (Auto) 0.1 Basophils # (Auto) 0.0 CBC Comment DIFF FINAL Differential Comment Sodium Level 145 Potassium Level 4.0 Chloride Level 110 Carbon Dioxide Level 29.8 Anion Gap 5 Blood Urea Nitrogen 22 Creatinine 0.97 Estimat Glomerular Filtration 58 Rate Random Glucose 88 Calcium Level 8.0 Total Bilirubin 0.3 Aspartate Amino Transf 12 (AST/SGOT) Alanine Aminotransferase 12 (ALT/SGPT) Alkaline Phosphatase 51 Total Protein 5.9 Albumin 3.2 Date/Time Procedure Status Source Growth 10/13/16 16:55 Aerobic Blood Culture - Preliminary Resulted Blood Peripheral NO GROWTH IN 1 DAY 10/13/16 16:55 Anaerobic Blood Culture - Preliminary Resulted Blood Peripheral NO GROWTH IN 1 DAY Last 48 hours Impressions Aorta w/Runoff CTA 10/14/16 0000 Signed Impressions: Service Date/Time: Friday, October 14, 2016 11:06 - CONCLUSION: 1. Atherosclerotic changes in the aorta and pelvic vessels without focal or high-grade stenosis. 2. 2 vessel runoff down to the ankles. 3. Nonspecific 5 mm pulmonary nodule right lung base. On a nonemergent outpatient basis, recommend a noncontrast CT thorax for further evaluation. Dorian Vela MD Toe X-Ray 10/13/16 1720 Signed Impressions: Service Date/Time: Thursday, October 13, 2016 17:31 - CONCLUSION: No bony destruction is seen. Rodo Martinez MD Assessment and Plan Assessment: (1) Toe pain, left Status: Acute Plan 61 year old female with hx of left 2nd toe wound that is non-healing and painful. She has had this wound in varying degree for 3-4 months. Strong signals left dp and pt. CTA shows appropriatel inflow, outflow and runoff. Patient on plavix. Patient appears to have appropriate blood supply. Would like to have her undergo an arterial duplex US in my office on 10.18.2016. She should also follow up with Dr. Neal for left 2nd toe amputation and question of shoe inserts as she has had multiple toe wounds. This can be done as an outpatient if her pain is controlled with PO pain medications. Spoke with patient and two brothers at bedside and urged them to contact me by cell phone if needed to help with any questions/concerns to avoid visits to the emergency room in the future. I also spoke to Dr. Neal about the patient as well. Lino Almazan DO, FACS [employer] V[employer] MICHELLE/Lino Rivas DO Oct 14, 2016 18:01
[2016-10-14] MEDS ORDERED: CLIN1CAP6 PO (18:04)
--- NOTE | 2016-10-14 18:04 | HHI.DCPOC ---
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 Avoid second hand smoke Call the 24-hour hour crisis hotline for domestic abuse at Shante Laughlin MD Oct 14, 2016 18:04
[2016-10-14] MEDS ORDERED: METO25TA3 PO (18:10)
[2016-10-25] MEDS ORDERED: ASPI81TA81 PO (13:01)
[2016-10-25] MEDS ORDERED: EXCETAB40 PO (13:01)
--- NOTE | 2016-10-27 11:10 | MB ---
cc: [employer] DATE OF CONSULTATION: 10/27/2016 HISTORY OF PRESENT ILLNESS This is a 61-year-old female with a known history of heart disease, peripheral arterial disease with chronic foot ulcer, who presents to the emergency department again with increased left foot pain. She was seen by Dr. Almazan who brought her into the catheterization lab for peripheral angiogram. She underwent peripheral angiography and during the procedure it was noted that she was having profound changes on her telemetry with significant ST depression. I was urgently consulted for consideration of coronary angiogram given these dynamic EKG changes. The patient denies any prior history of known heart disease and never had any prior cardiac catheterizations. Her brother was called and consented for her for the procedure. PAST MEDICAL HISTORY 1. Hypertension. 2. Peripheral arterial disease. 3. Chronic ulcer, left foot. SOCIAL HISTORY Denies any alcohol, tobacco or drug use. FAMILY HISTORY Denies any family history of early coronary artery disease or sudden cardiac . REVIEW OF SYSTEMS A review of systems was not obtained given the recent sedation. PHYSICAL EXAMINATION VITAL SIGNS: Pulse 97, blood pressure 161/83 mmHg. GENERAL: The patient was alert, in no distress. She was on the catheterization table and draped. Exam was unable to be performed. LABORATORY WBC 6.6, hemoglobin 11.7, platelet count 205. INR is 1. Sodium 142, potassium 3.7, BUN 29, creatinine 0.85. ASSESSMENT 1. Abnormal electrocardiogram with dynamic ST changes. 2. Severe peripheral arterial disease. 3. Hypertension. PLAN Given these dynamic EKG changes during the procedure and known severe peripheral arterial disease with atherosclerosis, we decided to proceed with coronary angiography. A right sheath was already in place. I did discuss in detail with the patient who was agreeable to proceeding, but given the recent sedation we felt more comfortable if we also consented her brother. I discussed the case in detail with her brother. She is currently now chest pain free. Electrocardiogram still shows some dynamic changes. Will proceed with cardiac catheterization. MD INDRA Nguyen/CATHERINE /10:10 AM /10:59 AM
[2016-11-10] MEDS ORDERED: ULTR50TA5 PO (13:18)
--- NOTE | 2016-11-25 16:38 | HHI.DS ---
Discharge Summary Admission Date Oct 13, 2016 at 18:57 Discharge Date: Oct 14, 2016 Admitting Diagnosis Ischemic Necrotic Toe/Cellulitis [facility] vascular surgery Imaging Last Impressions Aorta w/Runoff CTA 10/14/16 0000 Signed Impressions: Service Date/Time: Friday, October 14, 2016 11:06 - CONCLUSION: 1. Atherosclerotic changes in the aorta and pelvic vessels without focal or high-grade stenosis. 2. 2 vessel runoff down to the ankles. 3. Nonspecific 5 mm pulmonary nodule right lung base. On a nonemergent outpatient basis, recommend a noncontrast CT thorax for further evaluation. Dorian Vela MD Toe X-Ray 10/13/16 1720 Signed Impressions: Service Date/Time: Thursday, October 13, 2016 17:31 - CONCLUSION: No bony destruction is seen. Rodo Martinez MD PE at Discharge GENERAL: Middle-aged thin white female in no acute distress. HEENT: PERRLA, EOMI. No scleral icterus or conjunctival pallor. CARDIOVASCULAR: Regular rate and rhythm. No obvious murmurs to auscultation. . RESPIRATORY: No obvious rhonchi or wheezing. Clear to auscultation. Breath sounds equal bilaterally. GASTROINTESTINAL: Abdomen soft, non-tender, nondistended. BS normal. MUSCULOSKELETAL: Extremities without clubbing or edema. No obvious deformities. Left 2nd toe w/ chronic ulcer and underlying necrosis, tenderness to palpation, erythema along dorsum of left foot. Right 2nd toe w/ small ulcer at base and surrounding discoloration. Pulses intact. NEUROLOGICAL: Awake, alert and oriented x4. No focal neurologic deficits. Moving both upper and lower extremities spontaneously. Hospital Course Admitted with left 2nd toe chronic ulcer w/ underlying necrosis, progressively worse w/ significantly increased pain, surrounding erythema. Follows w/ Dr. Marcelo and Dr. Heller as outpatient, consults were placed. CTA with distal runoff was completed and showed atherosclerotic changes in the aorta and pelvic vessels without focal or high-grade stenosis. Was on IV Abx Clinda/ Ancef. Blood cultures were negative x5 days. Uncontrolled BP on arrival at 201/ 94, HR 106, likely compounded by pain complaints. BP normalized. at 124/64 and heart rate 78. Patient was discharged in stable condition and is to follow up with her outpatient Ct Technologist, Dr. Marcelo and Vascular Surgeon, Dr. Almazan Pt Condition on Discharge: Stable Discharge Disposition: Discharge Home Discharge Instructions DIET: Follow Instructions for: Heart Healthy Diet Activities you can perform: Regular-No Restrictions Follow up Referrals: Internal Medicine - 1 Week Podiatry - 1 Week with Hernando Marcelo DPM Vascular Surgery - 2-3 Days with Lino Almazan DO New Medications: Metoprolol Tartrate (Metoprolol Tartrate) 25 Mg Tab 25 MG PO Q12HR #60 Ref 0 TAB Continued Medications: Alendronate (Fosamax) 70 Mg Tab 70 MG PO Q7D Osteoporosis Treatment #4 Ref 0 TAB Clopidogrel (Clopidogrel) 75 Mg Tab 75 MG PO DAILY Blood Clot Prevention #30 Ref 0 TAB Ibuprofen-Diphenhydramine (Advil Pm) 200-38 Mg Tab 2 TAB PO HS PRN PAIN/SLEEP Ref 0 TAB Melatonin (Melatonin Cr) 10 Mg Tab 1 TAB PO HS Discontinued Medications: Enalapril-Hydrochlorothiazide (Enalapril-Hydrochorothiazide) 10-25 Mg Tab 1 TAB PO DAILY Shante Laughlin MD Nov 25, 2016 16:38
[2016-12-04] MEDS ORDERED: VASE1025 PO (14:47)
== END 2016-10-14 19:33 | disposition home or self-care (01) | DRG 594 ==
LOC: NEPE 16:05 → NEDA 18:57 → N05B 21:28
PROVIDERS: ADMIT Family Medicine; ATTEND Family Medicine
DX: L97.523 Non-pressure chronic ulcer of other part of left foot with necrosis of muscle (principal); I73.9 Peripheral vascular disease, unspecified; Z88.5 Allergy status to narcotic agent; I10 Essential (primary) hypertension; N28.9 Disorder of kidney and ureter, unspecified
CPT/HCPCS: 73660; 75635; 80053; 85025; 87040; 96365; 96367; 96375; J0690; J0692; J1170; J1644; J2270; J2405; J7030; Q9967

== ENCOUNTER 2016-10-27 06:01 | Day surgery (SDC) | payer BC ==
[~2016-10-27] VITALS: Ht 167.6 cm; Wt 47.2 kg
[~2016-10-27 06:01] MED LIST changes: +ASPI81TA81 PO; -ENAL10TA7 PO; +EXCETAB40 PO; +METO25TA3 PO; -TRAM50TA PO
[2016-10-27] MEDS ORDERED: SODIUM BICARBONATE 100 MEQ in D5W 1000 ML IV SCH (06:45)
[2016-10-27] MEDS ORDERED: TRAM50TA PO (07:23)
[2016-10-27] MEDS ORDERED: OXYC1TAB63 PO (07:23)
[2016-10-27 07:26] LABS: AUTOMATED NEUTROPHIL # 4.3 TH/MM3 (1.8-7.7); BASOPHIL % 0.6 % (0.0-2.0); EOSINOPHIL # 0.2 TH/MM3 (0-0.4); EOSINOPHIL % 2.3 % (0.0-4.0); HEMATOCRIT 34.7 % (35.0-46.0); HEMO FLAGS DIFF FINAL; LYMPH % 23.7 % (9.0-44.0); LYMPHOCYTE # 1.6 TH/MM3 (1.0-4.8); MEAN CELL VOLUME 90.3 FL (80.0-100.0); MEAN CORPUSCULAR HEMOGLOBIN 30.5 PG (27.0-34.0); MEAN CORPUSCULAR HGB CONC 33.8 % (32.0-36.0); NEUT % 65.4 % (16.0-70.0); PLATELET COUNT 205 TH/MM3 (150-450); PROTHROMBIN TIME - PATIENT 10.8 SEC (9.8-11.6); RED BLOOD COUNT 3.84 MIL/MM3 (4.00-5.30); RED CELL DISTRIBUTION WIDTH 14.6 % (11.6-17.2); WHITE BLOOD COUNT 6.6 TH/MM3 (4.0-11.0)
[2016-10-27 07:27] VITALS: BP 191/101; PULSE 75; RESP 18; TEMP 97.9; O2SAT 100
[2016-10-27 07:41] LABS: BICARBONATE 29.6 MEQ/L (21.0-32.0); POTASSIUM 3.7 MEQ/L (3.5-5.1)
[2016-10-27] MEDS ORDERED: MIDAZOLAM HCL 5 MG/5 ML VIAL ONE (08:50)
[2016-10-27] MEDS ORDERED: NITROGLYCERIN INJ 5 ML ONE (08:50)
[2016-10-27] MEDS ORDERED: HEPARIN SODIUM - IV 10,000 UNITS/10 ML VIAL ONE (08:50)
[2016-10-27] MEDS ORDERED: HEPARIN-NS/PF INJ 500 ML ONE ×2 (08:50→09:40)
[2016-10-27] MEDS ORDERED: LORazepam 2 MG/ML VIAL IV PRN (10:00)
[2016-10-27] MEDS ORDERED: BACITRACIN OINT 0.9 GM PKT TOP ONE (10:00)
[2016-10-27] MEDS ORDERED: SODIUM CHLOR 0.9% 250 ML INJ 250 ML IV PRN (10:00)
[2016-10-27] MEDS ORDERED: ATROPINE SULFATE 1 MG/ML VIAL IV PRN (10:00)
[2016-10-27] MEDS ORDERED: LIDOCAINE HCL 1% 50 ML VIAL INFIL PRN (10:00)
[2016-10-27] MEDS ORDERED: IOHEXOL 350 MG/ML 50 ML BTL (for Cath Lab) OTHER ONE (10:56)
[2016-10-27] MEDS ORDERED: IOHEXOL 350 MG/ML 100 ML BTL (for Cath Lab) OTHER ONE (10:57)
--- NOTE | 2016-10-27 11:00 | MA ---
cc: MARTIN LEAL MD, RYAN DATE: 10/27/2016 INDICATIONS Abnormal electrocardiogram. INDICATIONS: Risks, benefits and alternatives discussed both with the patient in addition to her brother who consented to procedure. The patient was undergoing peripheral angiogram when significant EKG changes were noted with ST depression. I was asked to perform diagnostic coronary angiogram given her dynamic EKG changes. PROCEDURE PERFORMED 1. Fluoroscopy with the patient. 2. Coronary angiography 3. Left heart catheterization. METHOD: Right groin prepped and draped and access was already obtained. Left heart catheterization; A 6-Amharic JR-5 catheter advanced across the aortic valve without difficulty. Intraoperative hemodynamics measured at 173/14 mmHg. LEFT VENTRICULOGRAPHY Left ventriculography was not performed given and contrast load both with diagnostic angiogram and peripheral angiogram. CORONARY ANGIOGRAPHY: 1. Left main coronary Angiographic and normal. 2. Left anterior descending coronary has is mild to moderate disease in the mid segment at the level of the bifurcation of moderate size diagonal branch. The diagonal branch also has mild luminal irregularities about 30% stenosis. The remainder left anterior descending coronary has only minor luminal irregularities. 3. Left circumflex is a dominant vessel giving rise to a posterior descending branch. Posterior descending branch is smaller caliber size. There is a first obtuse marginal branch with a steep angulation and a 50% proximal stenosis. The left-sided posterior descending branch has only minor luminal irregularities, smaller caliber size. 4. The right coronary is nondominant and angiographically normal. CONCLUSION 1. Mild to moderate nonobstructive branch vessel coronary disease. 2. Normal left-sided filling pressures. PLAN: The patient will be monitored closely for any post procedural complications and anticipate surgical peripheral bypass with Dr. Almazan. MD INDRA Nguyen/chapin /10:02 AM /10:49 AM MELLO
[2016-10-27] MEDS ORDERED: METOPROLOL TARTRATE 5 MG/5 ML VIAL ONE ×2 (11:36→12:37)
--- NOTE | 2016-10-27 11:52 | PD.VS.PN ---
Subjective POD #: 0 Procedure(s): aortogram and selective left lower extremity angiogram. Objective Vitals/I&O Date Time Temp Pulse Resp B/P Pulse Ox O2 Delivery O2 Flow Rate FiO2 10/27/16 07:27 97.9 75 18 191/101 100 Pulses: bilateral femoral bounding. Bilateral DP biphasic. left 2nd toe discolored distally. Laboratory Laboratory Tests Test 10/27/16 07:05 White Blood Count 6.6 Red Blood Count 3.84 Hemoglobin 11.7 Hematocrit 34.7 Mean Corpuscular Volume 90.3 Mean Corpuscular Hemoglobin 30.5 Mean Corpuscular Hemoglobin 33.8 Concent Red Cell Distribution Width 14.6 Platelet Count 205 Mean Platelet Volume 7.9 Neutrophils (%) (Auto) 65.4 Lymphocytes (%) (Auto) 23.7 Monocytes (%) (Auto) 8.0 Eosinophils (%) (Auto) 2.3 Basophils (%) (Auto) 0.6 Neutrophils # (Auto) 4.3 Lymphocytes # (Auto) 1.6 Monocytes # (Auto) 0.5 Eosinophils # (Auto) 0.2 Basophils # (Auto) 0.0 CBC Comment DIFF FINAL Differential Comment Prothrombin Time 10.8 Prothromb Time International 1.0 Ratio Sodium Level 142 Potassium Level 3.7 Chloride Level 108 Carbon Dioxide Level 29.6 Anion Gap 4 Blood Urea Nitrogen 29 Creatinine 0.85 Estimat Glomerular Filtration 68 Rate Random Glucose 79 Calcium Level 8.8 Assessment and Plan Plan Patient with hx of left femoral artery reconstruction and distal angioplasty. Left 2nd toe healed now recurrent left 2nd toe wound. Findings of occluded left popliteal artery with reconstitution distally via the anterior tibial artery today but left common femoral artery patent. Patient with ST depression during the case, angiogram (coronary cath) didnot show any significant lesions (Dr. Alarcon). I discussed with the patient and the her brother bypass next sunday. Patient would not want to stay over the weekend so will come in electively on sunday. She understands the risks and benefits of bypass as well as timeline post surgery. This was discussed in detail with her and her brother. Pre-op labs drawn and will add ekg and cxr while in DOCU. Lino Almazan DO, FACS [employer] Vascular Surgery MICHELLE/Lino Rivas DO Oct 27, 2016 11:52
--- NOTE | 2016-10-27 12:38 | RADRPT ---
EXAM DATE/TIME: 10/27/2016 11:56 [facility] COMPARISON: No previous studies available for comparison. INDICATIONS : Evaluate heart and lungs for pneumonia and communicable disease. MEDICAL HISTORY : None. SURGICAL HISTORY : None. ENCOUNTER: Initial ACUITY: 1 day PAIN SCORE: 0/10 LOCATION: chest FINDINGS: A single view of the chest demonstrates the lungs to be symmetrically aerated without evidence of mas s, infiltrate or effusion. The cardiomediastinal contours are unremarkable. Osseous structures are intact with a sideplate and osseous screws securing an old distal left clavicular fracture. CONCLUSION: No acute cardiopulmonary process. Wilman Arzola MD on October 27, 2016 at 12:35 Board Certified Radiologist. This report was verified electronically.
[2016-10-27] MEDS ORDERED: HYDROmorphone HCL PF 1 MG/ML VIAL IV PUSH PRN ×2 (12:45)
[2016-10-27] MEDS ORDERED: METOPROLOL TARTRATE 5 MG/5 ML VIAL IV PUSH PRN (13:00)
--- NOTE | 2016-10-27 13:00 | MA ---
cc: BROOK ALMAZAN DATE 10/27/[address] Brook Almazan PREOPERATIVE DIAGNOSIS Critical limb ischemia of left lower extremity with toe ulceration. POSTOPERATIVE DIAGNOSIS Critical limb ischemia of left lower extremity with toe ulceration. PROCEDURE Angiogram and selective left lower extremity arteriogram. PROCEDURE I got access to the right common femoral artery using duplex ultrasound after the patient was under moderate sedation. I used a 21 gauge needle and exchanged over a non-braided wire for a 4-Ukrainian micropuncture catheter and then exchanged for a 5-Ukrainian sheath using Seldinger technique. I advanced the Omni flush catheter into the distal abdominal aorta and shot oblique pelvic arteriogram. This showed that the distal abdominal aorta had somewhat of an aneurysmal dilatation, but no flow-limiting stenosis. The right common iliac, internal and external iliac arteries were widely patent. The right common femoral, proximal SFA and profunda femoral arteries were widely patent. The left common femoral artery as well as the external and internal iliac arteries are patent. The left common femoral artery and area of previous patch appeared to be patent. The patient had patent profunda femoral artery. The left SFA had at least a moderate stenosis in the mid to distal SFA and the patient had an occlusion of the popliteal artery with reconstitution of the anterior tibial artery down to the level of the foot. She noted that at the level of the foot itself there was really pedal arch that could be identified. It should be noted while we were doing our angiogram that the patient did have ST depressions. The patient had a history of intermittent rest pain, but was not actively having rest pain. Based on this, we did ask Dr. Alarcon from cardiology to assess her intraoperatively. We did discuss with her, although she was under moderate sedation, she appeared to understand that it would probably be appropriate to do a cardiac Catheterization to make sure that she has had no coronary narrowing or lesions. Dr. Alarcon also spoke to her brother, Chester Garcia, and I spoke to him as well. Dr. Alarcon did not find any major narrowings and he will have a separate dictation for discussion. At the end of the case, we pulled the sheath and applied pressure to the right groin and the patient had no hematoma. DO LINDA Mike/JOE /11:44 AM /12:47 PM
[2016-10-27] MEDS ORDERED: ONDANSETRON HCL 4 MG/2 ML VIAL ONE (16:26)
--- NOTE | 2016-10-29 21:39 | EKG ---
Date Performed: 10/27/2016 Time Performed: 12:00:16 PTAGE: 61 years EKG: Sinus rhythm . Anteroseptal infarct - age undetermined LVH with secondary repolarization abnormality Inferior/late ral ST-T changes are probably due to ventricular hypertrophy Abnormal ECG PREVIOUS TRACING : 07/14/2016 18.20 DOCTOR: Alonso Agee Interpretating Date/Time 10/29/2016 21:33:47
[2016-11-10] MEDS ORDERED: ULTR50TA5 PO (13:18)
[2016-12-04] MEDS ORDERED: VASE1025 PO (14:47)
== END 2016-10-27 16:39 | disposition home or self-care (01) ==
LOC: HCAT 06:01 → HDIC 06:01 → HCAT 16:39
PROVIDERS: ATTEND Surgery
DX: I25.10 Atherosclerotic heart disease of native coronary artery without angina pectoris (principal); I73.9 Peripheral vascular disease, unspecified; L97.523 Non-pressure chronic ulcer of other part of left foot with necrosis of muscle; Z72.0 Tobacco use
CPT/HCPCS: 36246; 71010; 75625; 75710; 80048; 85025; 85610; 93005; 93454; C1769; C1893; J1170; J1644; J2060; J2250; J3010; J7070; J2405; Q9967

== ENCOUNTER 2016-10-27 12:20 | Inpatient (IN) | payer BC ==
[~2016-10-27] VITALS: Ht 167.6 cm; Wt 50.1 kg
[~2016-10-27 12:20] MED LIST changes: -MUPI2OIN TOPICAL; +OXYC1TAB63 PO; +TRAM50TA PO
[2016-10-30] VITALS (14 sets, daily range): BP systolic 131–202; BP diastolic 64–94; PULSE 65–85; RESP 16–18; TEMP 97.5–98.9; O2SAT 99–100
[2016-10-30] MEDS ORDERED: SODIUM CHLORID 0.9% 500 ML IV PRN (06:45)
[2016-10-30] MEDS ORDERED: LACTATED RINGER'S 1000 ML IV PRN (06:45)
[2016-10-30] MEDS ORDERED: INSULIN HUMAN REGULAR 1,000 UNITS/10 ML VIAL SQ PRN (06:45)
[2016-10-30] MEDS ORDERED: POVIDONE IODINE 5% (ANTISEPSIS KIT) 4 APPLICATIONS EACH NARE PRN (06:45)
[2016-10-30] MEDS ORDERED: CHLORHEXIDINE GLUCONATE 2 % 1 PACK (2 CLOTHS) TOPICAL PRN (06:45)
[2016-10-30] MEDS ORDERED: METOPROLOL TARTRATE 25 MG TAB PO PRN (06:45)
[2016-10-30] MEDS ORDERED: THROMBIN (TOPICAL) 5,000 UNIT VIAL ONE (07:32)
[2016-10-30] MEDS ORDERED: HEPARIN SODIUM - SQ 10,000 UNITS/ML VIAL ONE ×2 (07:32→09:55)
[2016-10-30] MEDS ORDERED: HEPARIN SODIUM - IV 10,000 UNITS/10 ML VIAL ONE (07:33)
[2016-10-30] MEDS ORDERED: BUPIVACAINE HCL PF 0.25% 30 ML VIAL ONE (07:33)
[2016-10-30] MEDS ORDERED: GELFOAM SIZE 100 ONE (07:33)
[2016-10-30] MEDS ORDERED: ACETAMINOPHEN 1000 MG/100 ML VIAL IV ONE (07:35)
[2016-10-30] MEDS ORDERED: FAMOTIDINE 20 MG/2 ML VIAL ONE (07:36)
[2016-10-30] MEDS ORDERED: MIDAZOLAM HCL 2 MG/2 ML VIAL ONE (07:36)
[2016-10-30] MEDS ORDERED: DEXAMETHASONE SOD PHOS 4 MG/ML VIAL ONE (07:36)
--- NOTE | 2016-10-30 08:22 | PD.VS.PN ---
Pre-operative Note Pre-operative diagnosis: PAD, Wound left 2nd toe. Planned procedure: left fem-distal bypass Interval History: Hx of left 2nd toe ulcer healed after previous endarterectomy and balloon angioplasty in 2016. Failed endovascular intervention with restenosis distally and now recurrence of toe wound. Blood: T&S Post-operative destination: [facility] Operative site marked: Yes Consent: Informed consent has been obtained from Belkys Garcia. I have explained the procedure in detail and discussed the risks, benefits, and potential complications. All questions have been answered. Lino Almazan DO Oct 30, 2016 08:22
[2016-10-30] MEDS ORDERED: PROTAMINE SULFATE 50 MG/5 ML VIAL ONE (08:24)
[2016-10-30] MEDS ORDERED: BUPIVACAINE/EPINEPHRINE 0.25% PF 30 ML VIAL INFIL ONE (09:22)
[2016-10-30] MEDS ORDERED: SODIUM CHLORID 0.9% 500 ML INJ 500 ML IV ONE (12:00)
[2016-10-30] MEDS ORDERED: NORMOSOL R INJ 3,000 ML IV ONE (12:00)
[2016-10-30] MEDS ORDERED: ONDANSETRON HCL 4 MG/2 ML VIAL IV PUSH ONE (12:00)
[2016-10-30] MEDS ORDERED: ePHEDrine/NS 25 MG/5 ML SYR IV ONE (12:00)
[2016-10-30] MEDS ORDERED: PROPOFOL 200 MG/20 ML AMP IV ONE (12:00)
[2016-10-30] MEDS ORDERED: LACTATED RINGER'S 1000 ML INJ 1,000 ML IV ONE (12:00)
[2016-10-30] MEDS ORDERED: NEOSTIGMINE 3 MG/3 ML SYR IV ONE (12:00)
[2016-10-30] MEDS ORDERED: PHENYLEPH/NS 1000 MCG/10 ML SYR IV ONE (12:00)
[2016-10-30] MEDS ORDERED: fentaNYL CITRATE 250 MCG/5 ML AMP ONE (13:20)
--- NOTE | 2016-10-30 14:20 | HHI.PR ---
Immediate Post Op Note Procedure Date: Oct 30, 2016 Pre Op Diagnosis: (1) Ischemic ulcer of toe of left foot with necrosis of muscle Post Op Diagnosis: (1) Ischemic ulcer of toe of left foot with necrosis of muscle Surgeon: Lino Almazan Adult Education Instructor(s): TANI Procedure: Left fem-to anterior tibial artery bypass. Findings: strong distal anterior tibial artery signals status post bypass. Additional Information: NA Complications: None Specimen(s) removed: NA Estimated blood loss: 350cc Anesthesia: General Drains: None Fluids: 2500 cc IVF Tourniquet time (min at mmHg) NA Patient to: PACU Patient Condition: Good Implant/Devices: Other Date/Time of Procedure: Other Lino Almazan DO Oct 30, 2016 14:20
--- NOTE | 2016-10-30 14:24 | PD.VS.PN ---
Subjective POD #: 0 Procedure(s): left femoral to anterior tibial artery bypass. Objective Vascular: left distal anterior tibial artery with triphasic signal. Left bypass palpable. 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 Status post left fem-Anterior tibial artery bypass. Strong signal distally. Patient complaining of less toe pain after bypass. Plan for advancement of diet. Lino Almazan DO, FACS Emulsification Operator of Vascular Surgery /Lino Rivas DO Oct 30, 2016 14:24
[2016-10-30] MEDS ORDERED: MAGNESIUM SULFATE 1 GM PREMIX 200 ML IV PRN (14:30)
[2016-10-30] MEDS ORDERED: POTASSIUM PHOSPHATE INJ 21 MMOL in SODIUM CHLOR 0.9% 250 ML INJ 250 ML IV PRN (14:30)
[2016-10-30] MEDS ORDERED: Post-op Orders (for Pharmacy) MISC OTHER ONE (14:30)
[2016-10-30] MEDS ORDERED: LACTATED RINGER'S 1000 ML INJ 1,000 ML IV SCH (15:00)
[2016-10-30] MEDS: ACETAMINOPHEN/HYDROcodone 325 MG/5 MG TAB PO PRN (15:06)
[2016-10-30] MEDS ORDERED: HYDROmorphone HCL PF 1 MG/ML VIAL IV PRN (16:45)
[2016-10-30] MEDS: DEXT 5%-NACL 0.45% 1000 ML INJ 1,000 ML IV SCH (17:00)
[2016-10-30] MEDS ORDERED: LORazepam 0.5 MG TAB PO PRN (17:30)
[2016-10-30] MEDS: HYDROmorphone HCL PF 2 MG/ML VIAL IV PRN ×2 (17:44→21:32)
[2016-10-30] MEDS: ceFAZolin 1,000 MG/NS 100 ML IV SCH ×2 (17:58)
[2016-10-30] MEDS: SODIUM CHLORIDE 0.9% FLUSH 10 ML FLUSH IV FLUSH SCH (21:32)
[2016-10-31] VITALS (29 sets, daily range): BP systolic 101–167; BP diastolic 56–85; PULSE 77–111; RESP 18–20; TEMP 89.9–99; O2SAT 90–100
[2016-10-31] MEDS: HYDROmorphone HCL PF 2 MG/ML VIAL IV PRN ×3 (00:01→08:25)
[2016-10-31] MEDS: ceFAZolin 1,000 MG/NS 100 ML IV SCH ×4 (00:02→04:29)
[2016-10-31] MEDS: DEXT 5%-NACL 0.45% 1000 ML INJ 1,000 ML IV SCH ×2 (06:01→19:40)
[2016-10-31 06:23] LABS: REVIEW FLAG FINAL
[2016-10-31 06:26] LABS: HEMATOCRIT 20.6 % (35.0-46.0)
[2016-10-31 06:57] LABS: BICARBONATE 29.8 MEQ/L (21.0-32.0); POTASSIUM 3.9 MEQ/L (3.5-5.1)
[2016-10-31 07:17] LABS: CALCIUM-PROTEIN CORRECTED 8.3 MG/DL (8.5-10.1)
[2016-10-31] MEDS: SODIUM CHLORIDE 0.9% FLUSH 10 ML FLUSH IV FLUSH SCH ×2 (08:26→21:00)
[2016-10-31] MEDS: ASPIRIN EC 81 MG TABEC PO SCH (08:26)
[2016-10-31] MEDS: ONDANSETRON HCL 4 MG/2 ML VIAL IV PUSH PRN (11:38)
--- NOTE | 2016-10-31 12:17 | PD.VS.PN ---
Subjective POD #: 1 Procedure(s): left femoral to anterior tibial artery bypass. Subjective/Hospital Course Pt alert in nad c/o feeling tired this am Pt denies any pain and reported her LE feel better (Maira Pena) Objective Vitals/I&O Date Time Temp Pulse Resp B/P Pulse Ox O2 Delivery O2 Flow Rate FiO2 10/31/16 11:00 98.1 98 20 130/71 100 10/31/16 09:54 89.9 107 20 127/65 90 10/31/16 09:50 94 Nasal Cannula 2.00 10/31/16 09:47 98.9 107 20 127/65 90 10/31/16 09:45 Room Air 89 10/31/16 08:59 18 10/31/16 08:00 98.2 107 20 106/58 98 10/31/16 07:49 95 Nasal Cannula 21 10/31/16 07:00 Room Air 98 10/31/16 06:00 92 10/31/16 05:00 95 10/31/16 04:00 98.0 94 18 101/56 98 10/31/16 04:00 92 10/31/16 03:00 95 10/31/16 02:00 92 10/31/16 01:00 91 10/31/16 00:00 83 10/31/16 00:00 98.3 77 18 111/56 100 10/30/16 23:00 82 10/30/16 22:00 82 10/30/16 21:00 76 10/30/16 20:00 73 10/30/16 20:00 98.1 85 18 135/71 100 10/30/16 19:37 99 Nasal Cannula 2.00 10/30/16 19:00 76 10/30/16 18:00 83 10/30/16 17:59 72 10/30/16 16:00 74 10/30/16 15:00 70 10/30/16 15:00 97.5 75 18 148/64 100 10/30/16 14:40 65 10/30/16 14:07 75 16 138/74 99 Nasal Cannula 2 10/30/16 13:45 81 16 138/75 99 Nasal Cannula 2 10/30/16 13:30 80 16 131/72 99 Nasal Cannula 2 10/30/16 13:30 97.8 78 16 131/72 99 4/3/17 13:15 78 16 140/69 99 Nasal Cannula 2 10/30/16 13:05 97.8 57 16 149/77 99 Nasal Cannula 2 Exam: GENERAL: A&OX3, NAD, GCS15, affect appropriate to situation SKIN: Warm and dry. Left groin incision intact, NO redness, drainage or swelling noted, Left 2nd toe discolored with an ulceration present CARDIOVASCULAR: RRR RESPIRATORY: Breath sounds equal bilaterally. No accessory muscle use. GASTROINTESTINAL: Abdomen soft, non-tender, nondistended. MUSCULOSKELETAL: No cyanosis, or edema. Palpable right DP, r foot warm with motor intact, cap refill <3sec Left DP with strong triphasic signals, l foot warm, cap refill <3 sec Pulses: Palpable R DP Triphasic L DP heard via doppler Incisions: Left groin incision intact with no redness /drainage /swelling Laboratory Laboratory Tests Test 10/30/16 10/31/16 10/31/16 12:31 05:43 06:51 Blood Bank Comment Hemoglobin 6.9 Hematocrit 20.6 Sodium Level 141 Potassium Level 3.9 Chloride Level 105 Carbon Dioxide Level 29.8 Anion Gap 6 Blood Urea Nitrogen 17 Creatinine 0.76 Estimat Glomerular Filtration 77 Rate Random Glucose 100 Calcium Level 7.3 Protein Corrected Calcium 8.3 Phosphorus Level 2.0 Magnesium Level 2.0 Total Protein 5.2 Blood Type B POSITIVE Crossmatch Leukocyte-Reduced Red Blood Cells (Maira Pena) Assessment and Plan Assessment: (1) 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 Pt is S/P left fem-Anterior tibial artery bypass Pt presents with Strong signal distally. Will continue to monitor Maira JASMINE [facility] [phone] (Maira Pena) Plan I agree with above assessment and plan. Will advance diet as tolerated as was nauseated. will follow up on post transfusion h/h. Lino Almazan DO, FACS Manager Scheduling of Vascular Surgery /[facility] (Lino Almazan DO) Maira Pena Oct 31, 2016 12:17 Lino Almazan DO Oct 31, 2016 15:52
[2016-10-31 15:12] LABS: HEMATOCRIT 26.9 % (35.0-46.0)
[2016-10-31 15:24] LABS: PROTHROMBIN TIME - PATIENT 10.7 SEC (9.8-11.6)
[2016-10-31 15:45] LABS: BICARBONATE 27.8 MEQ/L (21.0-32.0); POTASSIUM 3.9 MEQ/L (3.5-5.1)
[2016-10-31] MEDS: HYDROmorphone HCL PF 1 MG/ML VIAL IV PRN ×2 (18:59→23:18)
[2016-11-01] VITALS (28 sets, daily range): BP systolic 133–188; BP diastolic 71–100; PULSE 71–119; RESP 12–20; TEMP 98.1–98.9; O2SAT 92–100
[2016-11-01] MEDS: ONDANSETRON HCL 4 MG/2 ML VIAL IV PUSH PRN (02:23)
[2016-11-01] MEDS: ASPIRIN EC 81 MG TABEC PO SCH (08:53)
[2016-11-01] MEDS: DEXT 5%-NACL 0.45% 1000 ML INJ 1,000 ML IV SCH (08:53)
[2016-11-01] MEDS: ENALAPRILAT 1.25 MG/ML VIAL IV PUSH PRN (08:53)
[2016-11-01] MEDS: SODIUM CHLORIDE 0.9% FLUSH 10 ML FLUSH IV FLUSH SCH ×2 (08:53→21:00)
[2016-11-01] MEDS: METOPROLOL TARTRATE 5 MG/5 ML VIAL IV PUSH PRN ×2 (10:25→12:41)
[2016-11-01] MEDS ORDERED: ALENDRONATE SODIUM 70 MG TAB PO SCH (11:45)
[2016-11-01] MEDS ORDERED: ACETAMINOPHEN CAFFEINE PO PRN (11:45)
--- NOTE | 2016-11-01 11:48 | PD.VS.PN ---
Subjective Subjective/Hospital Course Pt laying in bed with light off Reported her headache remains but does not feel any different then her typical migraines Pt c/o headache this am feels better than yesterday Left foot with some discomfort (Maira Pena) Objective Vitals/I&O Date Time Temp Pulse Resp B/P Pulse Ox O2 Delivery O2 Flow Rate FiO2 11/01/16 11:00 94 11/01/16 10:00 94 11/01/16 09:38 94 21 11/01/16 09:00 102 11/01/16 08:00 100 11/01/16 08:00 Room Air 98 11/01/16 08:00 98.4 105 20 188/94 100 11/01/16 07:00 107 11/01/16 06:00 103 11/01/16 05:00 100 11/01/16 04:00 104 11/01/16 03:00 100 11/01/16 03:00 98.1 111 18 162/82 92 11/01/16 02:00 119 11/01/16 01:00 103 11/01/16 00:45 147/72 11/01/16 00:00 100 10/31/16 23:00 98.6 111 18 167/85 93 10/31/16 23:00 104 10/31/16 22:00 103 10/31/16 21:56 93 21 10/31/16 21:00 100 10/31/16 20:00 100 10/31/16 19:00 98.6 111 18 157/84 93 10/31/16 19:00 107 10/31/16 19:00 Room Air 93 10/31/16 18:00 100 10/31/16 17:00 96 10/31/16 16:00 102 10/31/16 15:14 18 10/31/16 15:00 99.0 100 20 167/85 99 10/31/16 15:00 100 10/31/16 14:00 98 10/31/16 13:00 96 10/31/16 12:45 99.0 102 20 164/83 98 10/31/16 12:00 108 11/01/16 11/01/16 11/01/16 07:00 15:00 23:00 Intake Total 1140 ml Output Total 950 ml Balance 190 ml Physical Exam GENERAL: A&Ox3, NAD, GCS 15, pleasant 62/F SKIN: Warm and dry, 2nd Left toe with stable dry gangrene noted, left LE incisions to left groin and LE intact with no swelling, redness or drainage NECK: Supple, No JVD CARDIOVASCULAR: +S1,S2, RRR RESPIRATORY: Breath sounds equal and clear bilaterally GASTROINTESTINAL: Abdomen soft, non-tender, nondistended. MUSCULOSKELETAL: No cyanosis, or edema. Bilat feet warm, with motor intact, Palpable right DP, Left DP/PT with strong triphasic signals heard via doppler (Maira Pena) Laboratory Laboratory Tests Test 10/31/16 10/31/16 15:03 15:05 Hemoglobin 9.3 Hematocrit 26.9 Prothrombin Time 10.7 Prothromb Time International 1.0 Ratio Sodium Level 138 Potassium Level 3.9 Chloride Level 103 Carbon Dioxide Level 27.8 Anion Gap 7 Blood Urea Nitrogen 13 Creatinine 0.62 Estimat Glomerular Filtration 98 Rate Random Glucose 99 Calcium Level 7.7 Blood Type B POSITIVE Pre-Transfusion Antibody Screen Pre-Transfusion ADRIANNA (Direct NEGATIVE Bishop) Post-Transfusion Antibody Screen Post-Transfusion ADRIANNA (Direct NEGATIVE Bishop (Maira Pena) Assessment and Plan Assessment: (1) 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 Plan for possible left lower extremity toe amputation by Dr. Neal next sunday. Patient complains of pain with toe but possibly salvageable. DC planning. Lino Almazan DO, FACS Photographer News of Vascular Surgery /[place] (Lino Almazan DO) Maira Pena Nov 01, 2016 11:48 Lino Almazan DO Nov 01, 2016 14:50
[2016-11-01] MEDS: HYDROmorphone HCL PF 1 MG/ML VIAL IV PRN ×2 (14:00→18:48)
[2016-11-01] MEDS: cloNIDine HCL 0.2 MG TAB PO PRN (14:35)
[2016-11-01] MEDS: METOPROLOL TARTRATE 25 MG TAB PO SCH (21:25)
[2016-11-02] VITALS (28 sets, daily range): BP systolic 153–193; BP diastolic 77–108; PULSE 60–98; RESP 18; TEMP 97.6–99.6; O2SAT 95–97
[2016-11-02] MEDS: ONDANSETRON HCL 4 MG/2 ML VIAL IV PUSH PRN (02:31)
[2016-11-02] MEDS: ACETAMINOPHEN/HYDROcodone 325 MG/5 MG TAB PO PRN ×4 (02:32→20:21)
[2016-11-02] MEDS: ASPIRIN EC 81 MG TABEC PO SCH (09:11)
[2016-11-02] MEDS: METOPROLOL TARTRATE 25 MG TAB PO SCH ×2 (09:11→20:18)
[2016-11-02] MEDS: CLOPIDOGREL 75 MG TAB PO SCH (09:11)
[2016-11-02] MEDS: SODIUM CHLORIDE 0.9% FLUSH 10 ML FLUSH IV FLUSH SCH ×2 (09:11→20:18)
--- NOTE | 2016-11-02 11:39 | MP ---
cc: BROOK ALMAZAN DATE OF OPERATION 10/30/2016 PREOPERATIVE DIAGNOSIS Critical limb ischemia left lower extremity with ischemic toe ulceration. POSTOPERATIVE DIAGNOSIS Critical limb ischemia left lower extremity with ischemic toe ulceration. PROCEDURE Left lower extremity superficial femoral to anterior tibial artery bypass with saphenous vein. SURGEON Dr. Almazan. IV FLUIDS 2.5 liters ESTIMATED BLOOD LOSS 500 cc. URINE OUTPUT 1 liter. COMPLICATIONS None. DISPOSITION To PACU. PROCEDURE The patient was prepped and draped in sterile fashion. The patient did get perioperative IV antibiotics prior to making the incision. The saphenous vein was marked prior to the incision as well. I made a linear incision with a scalpel and electrocautery and dissected down between the tibialis anterior and the extensor digitorum muscles, finding the anterior tibial artery. I used an [employer] self-retaining retractor in this area. I dissected any vein branches with small clips and 3-0 ties as needed. I isolated a segment of the anterior tibial artery with vessel loops. After I was done with this, I made a medial incision over the marked saphenous vein site distally below the level of the knee. I used a scalpel and then used Kaur scissors to help with the incision. I dissected out the saphenous vein where it branched. It did not appear adequate and thus had to perform a bypass for a long segment so no further dissection was performed. I closed with interrupted 3-0 Vicryls and a 4-0 Monocryl with Dermabond. I then made an incision just distal to the previous incision for a left femoral endarterectomy. It was linear with scalpel and electrocautery dissected down to the superficial femoral artery, isolated the superficial femoral artery, placed vessel loops around it. His used a small Weitlaner retractor. Showed that we did prepare the cryo vein as approved by the literature that came with the vessel. We did give the patient heparin to an ACT of more than 300. Before doing this we did make a tunnel with the Lopez tunneler between left groin and the left lateral thigh where we made a counter incision that was transverse; it was about 2 cm. We dissected down and then used an aortic clamp to connect the left anterior tibial incision to the left lateral thigh incision. We then tunneled the vein after checking to make sure there was no leakage and we did devi it anteriorly. Afterwards I used a proximal anastomosis. I beveled the vessel, performed am arteriotomy after getting control with pediatric profunda clamps proximally and distally on the superficial femoral artery just distal to the takeoff of the common femoral artery. I performed an end-to-side anastomosis with a 5-0 Prolene stitch, did require 6-0 Prolene correction suture at the end of the proximal anastomosis. I did perform my and distal anastomosis making sure that the leg was adequately extended before beveling my vein graft. I used vessel loops for control of the anterior tibial artery and then used an 11-blade and Travis scissors to perform my arteriotomy, performed end-to-side anastomosis. At the end there was no bleeding at this area. Used Surgicel and FloSeal to help with hemostasis. It should be noted that there was bleeding coming through the tunnel proximally that was pretty substantial. I performed another longitudinal incision anteriorly on the thigh, used electrocautery and Metzenbaum scissors. I dissected down to the vein. There did not appear to be any bleeding from any side branches but there was an area of muscle that was bleeding that was repaired with two 5-0 Prolene stitches, pledgets. Afterwards it looked like we had good hemostasis but the patient was oozing. We did reverse the patient with protamine and did give platelets as the patient was on aspirin and Plavix preoperatively. We closed all the proximal three incisions with interrupted 3-0 ad a 4-0 Monocryl with Dermabond and then I used 3-0 Vicryl absorbable sutures interrupted distally with 2-0 nylon stitch interrupted by horizontal mattresses. At the end I used silver-impregnated dressings on all the sites and it should be noted that the patient had a triphasic signal distally that matched the signal in the graft which was palpable through the skin. The patient's foot was warm at the end of the case. DO SANKET Mike /8:28 AM /10:45 AM MELLO
--- NOTE | 2016-11-02 13:21 | PD.VS.PN ---
Subjective Subjective/Hospital Course Pt laying in bed with light off Denies headache or leg pain this am Tolerated diet this am No vomiting or nausea reported (Maira Pena) Objective Vitals/I&O Date Time Temp Pulse Resp B/P Pulse Ox O2 Delivery O2 Flow Rate FiO2 11/02/16 13:05 71 11/02/16 12:46 71 11/02/16 11:30 73 11/02/16 11:30 97 Room Air 11/02/16 11:30 97.6 74 18 156/77 97 11/02/16 10:20 18 11/02/16 10:02 75 11/02/16 09:44 95 21 11/02/16 09:24 84 11/02/16 08:49 79 11/02/16 07:50 97 Room Air 11/02/16 07:50 98.3 63 18 179/97 97 11/02/16 07:00 80 11/02/16 06:00 72 11/02/16 05:00 76 11/02/16 04:00 78 11/02/16 03:00 98.6 85 18 153/83 96 11/02/16 03:00 80 11/02/16 02:00 80 11/02/16 01:00 76 11/02/16 00:00 84 11/01/16 23:00 98.4 82 18 144/74 95 11/01/16 23:00 71 11/01/16 22:00 80 11/01/16 21:00 82 11/01/16 20:00 80 11/01/16 19:00 97 Room Air 11/01/16 19:00 98.6 95 12 133/71 97 11/01/16 19:00 71 11/01/16 18:00 79 11/01/16 17:47 96 21 11/01/16 17:00 80 11/01/16 16:00 98.9 93 20 139/71 96 11/01/16 16:00 85 11/01/16 15:00 90 11/01/16 14:38 18 11/01/16 14:00 87 11/02/16 11/02/16 11/02/16 07:00 15:00 23:00 Intake Total 240 ml Output Total 375 ml Balance -135 ml Physical Exam GENERAL: A&OX3, GCS15, NAD SKIN: Warm and dry. incisions to LLE intact no erythema, swelling, drainage, odor or pain CARDIOVASCULAR: RRR, + S1,S2 RESPIRATORY: Breath sounds equal and clear bilaterally. No accessory muscle use. GASTROINTESTINAL: Abdomen soft, non-tender, nondistended. MUSCULOSKELETAL: No cyanosis, or edema. 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 Neal next sunday. Maira JASMINE [facility] [phone] Discharge Planning Tomorrow AM (Maira Pena) Plan I agree with above A/P. Toe amputation left lower extremity scheduled for next sunday with Dr. Neal. Lino Almazan DO, FACS Technologist Infectious Disease of Vascular Surgery [facility] (Lino Almazan DO) Maira Pena Nov 02, 2016 13:21 Lino Almazan DO Nov 02, 2016 16:08
--- NOTE | 2016-11-02 16:31 | RADRPT ---
EXAM DATE/TIME: 11/02/2016 14:46 [facility] COMPARISON: CHEST SINGLE AP, October 27, 2016, 11:56. INDICATIONS : Congestion, Distal Bypass. MEDICAL HISTORY : None. SURGICAL HISTORY : None. ENCOUNTER: Initial ACUITY: 3 days PAIN SCORE: 0/10 LOCATION: Bilateral chest FINDINGS: There are patchy non-consolidative infiltrates in the mid and lower lungs bilaterally. There is blun ting of the costophrenic angles bilaterally and on lateral projection, there is loss of the posterior costophrenic angle on both sides. The heart is normal size. CONCLUSION: Patchy non-consolidative infiltrates in the lower lungs bilaterally with associated small bilateral p leural effusions, right greater than left. Lupillo Becker MD on November 02, 2016 at 16:28 Board Certified Radiologist. This report was verified electronically.
[2016-11-02] MEDS: ENALAPRILAT 1.25 MG/ML VIAL IV PUSH PRN (20:18)
[2016-11-03] VITALS (13 sets, daily range): BP systolic 134–135; BP diastolic 69–73; PULSE 54–88; RESP 18; TEMP 97.9–99.6; O2SAT 96–99
[2016-11-03] MEDS: cloNIDine HCL 0.2 MG TAB PO PRN
[2016-11-03] MEDS: ACETAMINOPHEN/HYDROcodone 325 MG/5 MG TAB PO PRN ×2 (01:22→07:44)
[2016-11-03] MEDS: CLOPIDOGREL 75 MG TAB PO SCH (07:44)
[2016-11-03] MEDS: ASPIRIN EC 81 MG TABEC PO SCH (07:44)
[2016-11-03] MEDS: METOPROLOL TARTRATE 25 MG TAB PO SCH (07:44)
[2016-11-03] MEDS: SODIUM CHLORIDE 0.9% FLUSH 10 ML FLUSH IV FLUSH SCH (07:45)
--- NOTE | 2016-11-03 08:31 | PD.VS.DC ---
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 Failed endovascular intervention with restenosis distally and now recurrence of toe wound. Procedure(s): Left fem-to anterior tibial artery bypass. Significant Findings GENERAL: A&OX3, NAD, GCS15 SKIN: Warm and dry. incisions to left LE intact with no redness, drainage or swelling NECK: Supple, No JVD CARDIOVASCULAR: RRR, +S1, S2 RESPIRATORY: Breath sounds equal and clear bilaterally. No accessory muscle use. GASTROINTESTINAL: Abdomen soft, non-tender, nondistended. MUSCULOSKELETAL: No cyanosis, or edema. Dry gangrene stable, 2nd left toe Motor intact bilat LE Laboratory Tests Test 10/31/16 15:03 Hemoglobin 9.3 GM/DL (11.6-15.3) Hematocrit 26.9 % (35.0-46.0) Calcium Level 7.7 MG/DL (8.5-10.1) Hospital Course: Hx of left 2nd toe ulcer healed after previous endarterectomy and balloon angioplasty in 2016. Failed endovascular intervention with restenosis distally and now recurrence of toe wound. surgical intervention (Left fem-to anterior tibial artery bypass) was done, pt has done well post and is OK for D/C this am Will have pt f/u in 1week in our OPC Allergies Coded Allergies Type Severity Reaction Last Updated Verified Codeine Allergy Mild Dizziness 10/30/16 Yes Morphine Allergy Mild Nausea/Vomiting 10/30/16 Yes Recent Impressions Chest X-Ray 11/02/16 0000 Signed Impressions: Service Date/Time: October 14:46 - CONCLUSION: Patchy non-consolidative infiltrates in the lower lungs bilaterally with associated small bilateral pleural effusions, right greater than left. Lupillo Becker MD 11/01///174/6/174/6/174// 06:00 18:00 06:00 18:00 06:00 18:00 Intake Total 1140 ml 1420 ml 240 ml 351 ml 240 ml Output Total 950 ml 1500 ml 375 ml 776 ml 600 ml Balance 190 ml -80 ml -135 ml -425 ml -360 ml Intake Oral 240 ml 920 ml 240 ml 351 ml 240 ml IV Total 900 ml 500 ml Output Urine Total 950 ml 1500 ml 375 ml 775 ml 600 ml Stool Total 1 ml # Bowel Movements 0 1 1 Laboratory Tests Test 10/31/16 10/31/16 15:03 15:05 Hemoglobin 9.3 GM/DL Hematocrit 26.9 % Prothrombin Time 10.7 SEC Prothromb Time International 1.0 RATIO Ratio Sodium Level 138 MEQ/L Potassium Level 3.9 MEQ/L Chloride Level 103 MEQ/L Carbon Dioxide Level 27.8 MEQ/L Anion Gap 7 MEQ/L Blood Urea Nitrogen 13 MG/DL Creatinine 0.62 MG/DL Estimat Glomerular Filtration 98 ML/MIN Rate Random Glucose 99 MG/DL Calcium Level 7.7 MG/DL Blood Type B POSITIVE Pre-Transfusion Antibody Screen Pre-Transfusion ADRIANNA (Direct NEGATIVE Bishop) Post-Transfusion Antibody Screen Post-Transfusion ADRIANNA (Direct NEGATIVE Bishop Transfusion Reaction Path Interp Procedure Category Date Status Time Transfusion Reaction BBK 10/31/16 Complete 13:55 Hematocrit (Hct) LAB 10/31/16 Complete 14:10 Hemoglobin (Hgb) LAB 10/31/16 Complete 14:10 Basic Metabolic Panel LAB 10/31/16 Complete (Bmp) 14:30 Prothrombin Time / LAB 10/31/16 Complete Inr (Pt) 14:30 Vascular Access Team FRANKIE 10/31/16 In Process Consult 15:59 Vascular Poc IMGUS 10/31/16 Taken Ultrasound Clopidogrel (Plavix) MED 11/02/16 In Process 09:00 Metoprolol Tartrate MED 11/01/16 In Process (Lopressor) 21:00 Consult Pt Eval & Tx PT 11/01/16 Logged OOB 14:03 Clonidine (Catapres) MED 11/01/16 In Process 15:00 Electrocardiogram CAV 11/02/16 Complete Chest, Pa & Lat RADDIAG 11/02/16 Resulted Attending Discharge DISCHARGE 11/03/16 Transmitted Order Vital Signs Date Time Temp Pulse Resp B/P Pulse Ox O2 Delivery O2 Flow Rate FiO2 11/03/16 06:29 68 11/03/16 05:00 70 11/03/16 04:09 69 11/03/16 04:08 99.6 78 134/69 96 11/03/16 03:40 78 11/03/16 03:13 Room Air 2.00 21 11/03/16 02:37 76 11/03/16 01:00 88 11/03/16 00:00 80 11/02/16 23:16 82 11/02/16 23:02 Room Air 2.00 21 11/02/16 23:00 99.6 79 176/91 96 11/02/16 22:00 84 11/02/16 21:00 98 11/02/16 20:00 94 11/02/16 19:00 91 11/02/16 19:00 Room Air 2.00 21 11/02/16 19:00 98.4 97 193/108 96 11/02/16 18:24 16 11/02/16 18:03 87 11/02/16 17:05 80 11/02/16 16:00 78 11/02/16 15:00 97 Room Air 11/02/16 15:00 93 11/02/16 15:00 97.7 78 18 172/92 97 11/02/16 14:35 16 11/02/16 13:05 71 11/02/16 12:46 71 11/02/16 11:30 73 11/02/16 11:30 97 Room Air 11/02/16 11:30 97.6 74 18 156/77 97 11/02/16 10:02 75 11/02/16 09:44 95 21 11/02/16 09:24 84 11/02/16 08:49 79 11/02/16 07:50 97 Room Air 11/02/16 07:50 98.3 63 18 179/97 97 11/02/16 07:00 80 11/02/16 06:00 72 11/02/16 05:00 76 11/02/16 04:00 78 11/02/16 03:00 98.6 85 18 153/83 96 11/02/16 03:00 80 11/02/16 02:00 80 11/02/16 01:00 76 11/02/16 00:00 84 11/01/16 23:00 98.4 82 18 144/74 95 11/01/16 23:00 71 11/01/16 22:00 80 11/01/16 21:00 82 11/01/16 20:00 80 11/01/16 19:00 97 Room Air 11/01/16 19:00 98.6 95 12 133/71 97 11/01/16 19:00 71 11/01/16 18:00 79 11/01/16 17:47 96 21 11/01/16 17:00 80 11/01/16 16:00 98.9 93 20 139/71 96 11/01/16 16:00 85 11/01/16 15:00 90 11/01/16 14:38 18 11/01/16 14:00 87 11/01/16 13:00 88 11/01/16 12:30 188/100 11/01/16 12:00 87 11/01/16 11:00 94 11/01/16 11:00 98.2 92 20 185/94 97 11/01/16 10:00 94 11/01/16 09:38 94 21 11/01/16 09:00 102 11/01/16 08:00 100 11/01/16 08:00 Room Air 98 11/01/16 08:00 98.4 105 20 188/94 100 11/01/16 07:00 107 11/01/16 06:00 103 11/01/16 05:00 100 11/01/16 04:00 104 11/01/16 03:00 100 11/01/16 03:00 98.1 111 18 162/82 92 11/01/16 02:00 119 11/01/16 01:00 103 11/01/16 00:45 147/72 11/01/16 00:00 100 10/31/16 23:00 98.6 111 18 167/85 93 10/31/16 23:00 104 10/31/16 22:00 103 10/31/16 21:56 93 21 10/31/16 21:00 100 10/31/16 20:00 100 10/31/16 19:00 98.6 111 18 157/84 93 10/31/16 19:00 107 10/31/16 19:00 Room Air 93 10/31/16 18:00 100 10/31/16 17:00 96 10/31/16 16:00 102 10/31/16 15:00 99.0 100 20 167/85 99 10/31/16 15:00 100 10/31/16 14:00 98 10/31/16 13:00 96 10/31/16 12:45 99.0 102 20 164/83 98 10/31/16 12:00 108 10/31/16 11:00 97 10/31/16 11:00 98.1 98 20 130/71 100 10/31/16 10:00 100 10/31/16 09:54 89.9 107 20 127/65 90 10/31/16 09:50 94 Nasal Cannula 2.00 10/31/16 09:47 98.9 107 20 127/65 90 10/31/16 09:45 Room Air 89 10/31/16 09:00 98 10/31/16 08:59 18 Discharge Condition: Good Discharge Disposition: Discharge Home Discharge Instructions: Follow up in our OPC (11/08/16) Call the office with any questions or concerns Keep incisions open to air Report any new onset redness, swelling, odor or drainage to incision sites Discussed with pt after care of incisions and surgical intervention, pt verbalized understanding Maira JASMINE [facility] [phone] Any questions or concerns: Call [facility] [phone] Maira Pena Nov 03, 2016 08:31
--- NOTE | 2016-11-03 08:34 | PD.VS.PN ---
Subjective Subjective/Hospital Course Patient doing well. leg pain improved. Objective Vitals/I&O Date Time Temp Pulse Resp B/P Pulse Ox O2 Delivery O2 Flow Rate FiO2 11/03/16 08:20 97 11/03/16 06:29 68 11/03/16 05:00 70 11/03/16 04:09 69 11/03/16 04:08 99.6 78 134/69 96 11/03/16 03:40 78 11/03/16 03:13 Room Air 2.00 21 11/03/16 02:37 76 11/03/16 01:00 88 11/03/16 00:00 80 11/02/16 23:16 82 11/02/16 23:02 Room Air 2.00 21 11/02/16 23:00 99.6 79 176/91 96 11/02/16 22:00 84 11/02/16 21:00 98 11/02/16 20:00 94 11/02/16 19:00 91 11/02/16 19:00 Room Air 2.00 21 11/02/16 19:00 98.4 97 193/108 96 11/02/16 18:24 16 11/02/16 18:03 87 11/02/16 17:05 80 11/02/16 16:00 78 11/02/16 15:00 97 Room Air 11/02/16 15:00 93 11/02/16 15:00 97.7 78 18 172/92 97 11/02/16 14:35 16 11/02/16 13:05 71 11/02/16 12:46 71 11/02/16 11:30 73 11/02/16 11:30 97 Room Air 11/02/16 11:30 97.6 74 18 156/77 97 11/02/16 10:02 75 11/02/16 09:44 95 21 11/02/16 09:24 84 11/02/16 08:49 79 11/03/16 11/03/16 11/03/16 07:00 15:00 23:00 Intake Total 240 ml Output Total 600 ml Balance -360 ml Physical Exam left leg incisions intact. left foot warm. Minimal swelling. Imaging Last 48 hours Impressions Chest X-Ray 11/02/16 0000 Signed Impressions: Service Date/Time: Thursday, November 02, 2016 14:46 - CONCLUSION: Patchy non-consolidative infiltrates in the lower lungs bilaterally with associated small bilateral pleural effusions, right greater than left. 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 Follow up Wed in office. Toe amputation left lower extremity scheduled for next sunday with Dr. Neal. Lino Almazan DO, FACS Product Engineering Manager of Vascular Surgery /[place] Discharge Planning Tomorrow AM Lino Almazan DO Nov 03, 2016 08:34
--- NOTE | 2016-11-03 21:51 | EKG ---
Date Performed: 11/03/2016 Time Performed: 03:49:38 PTAGE: 61 years EKG: Sinus rhythm Possible septal infarct - age undetermined Lateral ST-T changes are nonspecific Prolonged corrected QT interval. ST depression in the anterolateral leads still persists when Compared to previous tracin g. Abnormal ECG PREVIOUS TRACING : 10/27/2016 12.00 DOCTOR: Abhishek Griffith Interpretating Date/Time 11/03/2016 21:50:50
[2016-11-10] MEDS ORDERED: ULTR50TA5 PO (13:18)
[2016-12-04] MEDS ORDERED: VASE1025 PO (14:47)
== END 2016-11-03 10:00 | disposition home or self-care (01) | DRG 254 ==
LOC: HSDI 10-30 05:48 → HCIS 10-30 14:20
PROVIDERS: ADMIT Surgery; ATTEND Surgery
PROC: 041L0KQ Bypass Left Femoral Artery to Lower Extremity Artery with Nonautologous Tissue Substitute, Open Approach (ICD-10-PCS; 2016-10-30)
PROC: 6A550Z2 Pheresis of Platelets, Single (ICD-10-PCS; 2016-10-30)
PROC: 04CL0ZZ Extirpation of Matter from Left Femoral Artery, Open Approach (ICD-10-PCS; principal; 2016-10-30 08:01)
PROC: 30233N1 Transfusion of Nonautologous Red Blood Cells into Peripheral Vein, Percutaneous Approach (ICD-10-PCS; 2016-10-31)
DX: I70.245 Atherosclerosis of native arteries of left leg with ulceration of other part of foot (principal); L97.529 Non-pressure chronic ulcer of other part of left foot with unspecified severity; I10 Essential (primary) hypertension; Z88.5 Allergy status to narcotic agent; Z87.891 Personal history of nicotine dependence
CPT/HCPCS: 36430; 71020; 76937; 80048; 83735; 84100; 84155; 85014; 85018; 85610; 86078; 86850; 86880; 86900; 86901; 86920; 86965; 93005; J0131; J0690; J1100; J1170; J1644; J2250; J2370; J2405; J2710; J2720; J3010; J7040; J7120; P9016; P9035

== ENCOUNTER → 2016-11-06 | Outpatient (CLI) | payer BC ==
[~2016-11-06] MED LIST changes: +MAPA500C PO; +ULTR50TA5 PO; +VASE1025 PO
== END ==
LOC: CPRE 13:48
PROVIDERS: ATTEND Podiatrist Primary Podiatric Medicine
DX: I73.9 Peripheral vascular disease, unspecified (principal)

== ENCOUNTER → 2016-11-10 | Day surgery (SDC) | payer BC ==
[~2016-11-10] VITALS: Ht 165.1 cm; Wt 48.4 kg
[~2016-11-10] MED LIST changes: +BUPIVACAINE HCL PF 0.5% 30 ML VIAL INFIL ONE; +CHLORHEXIDINE GLUCONATE 2 % 1 PACK (2 CLOTHS) TOPICAL PRN; +DO NOT ADM ANY ANTICOAGULANT DRUGS PRN; +INSULIN HUMAN REGULAR 1,000 UNITS/10 ML VIAL SQ PRN; +LACTATED RINGER'S 1000 ML IV PRN; +METOPROLOL TARTRATE 25 MG TAB PO PRN; +MIDAZOLAM HCL 2 MG/2 ML VIAL ONE; +NALOXONE HCL 0.4 MG/ML AMP IV PRN; +ONDANSETRON HCL 4 MG/2 ML VIAL IV PUSH ONE; +POVIDONE IODINE 5% (ANTISEPSIS KIT) 4 APPLICATIONS EACH NARE PRN; +PROPOFOL 200 MG/20 ML AMP IV ONE; +Post-op Orders (for Pharmacy) MISC XX ONE; +SODIUM CHLORID 0.9% 500 ML IV PRN; +SODIUM CHLORIDE 0.9% FLUSH 10 ML FLUSH IV FLUSH PRN; +SODIUM CHLORIDE 0.9% FLUSH 10 ML FLUSH IV FLUSH SCH; +ceFAZolin 2 GM PREMIX 50 ML IV SCH; +traMADol HCL 50 MG TAB PO PRN
[2016-11-10 11:46] VITALS: BP 181/82; PULSE 61; RESP 18; TEMP 97.9; O2SAT 100
--- NOTE | 2016-11-10 13:13 | PD.OP ---
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 A pneumatic ankle cuff was placed around the patient's left ankle after adequate web roll padding. Patient was again given general inhalation anesthesia by the anesthesiologist in the left foot was prepped and draped in the usual sterile manner. After the appropriate timeout was performed the left foot was elevated for a period of 3 minutes at which time the pneumatic ankle cuff was inflated to 250 mmHg. Foot was lowered to the operating table and attention was directed to the second toe. Should be noted that the patient had gangrene of the distal tip of the second toe of the left foot. At this time at the base of the second toe to semi-elliptical incisions were made from dorsal to plantar. The incisions were deepened using sharp dissection. The second toe was disarticulated at the metatarsal phalangeal joint. Subcutaneous tissue was flushed with copious amounts of sterile saline. Subcutaneous tissue was closed with 4-0 Vicryl and skin edges were closed with 4-0 Prolene. The area was anesthetized with 10 cc of 0.5% Marcaine. The pneumatic ankle cuff was deflated. The wounds were dressed with Adaptic, 4 x 4's and a Kailyn roll. Sponge and instrument count were noted to be correct. Second toe left foot was sent for pathology. Estimated blood loss was less than 10 cc. Patient tolerated the procedures and anesthesia well and left the OR to PACU in apparent satisfactory condition with all vital signs stable endovascular status intact to the remaining toes of the left foot. Hernando Marcelo DPM Nov 10, 2016 13:13
--- NOTE | 2016-11-10 13:38 | RADRPT ---
EXAM DATE/TIME: 11/10/2016 14:22 [facility] COMPARISON: TOE LEFT 2ND DIGIT (MIN 2VWS), October 13, 2016, 17:31. INDICATIONS : Post op left foot 2nd digit amputation. MEDICAL HISTORY : None. SURGICAL HISTORY : None. ENCOUNTER: Initial ACUITY: 1 day PAIN SCORE: 0/10 LOCATION: Left foot. FINDINGS: Patient is status post amputation of the left digit distal to the second metatarsal. There is an asso ciated soft tissue defect with subcutaneous emphysema. A small ossific linear fragment is seen at the operative site. CONCLUSION: Postoperative changes are noted. Burak Corbett MD on November 10, 2016 at 13:36 Board Certified Radiologist. This report was verified electronically.
[2016-11-10 14:49] VITALS: BP 190/81; PULSE 66; RESP 20; TEMP 97.6; O2SAT 98
== END | disposition home or self-care (01) ==
LOC: HSDC 10-27 05:53 → HDIC 10-27 05:54 → HSDC 11:04
PROVIDERS: ATTEND Podiatrist Primary Podiatric Medicine
DX: I70.262 Atherosclerosis of native arteries of extremities with gangrene, left leg (principal); I77.1 Stricture of artery; I10 Essential (primary) hypertension
CPT/HCPCS: 01480; 28820; 73630; 88305; 88311; J0690; J2250; J2405; J3010; J7120; L3260

== ENCOUNTER → 2016-12-04 | Outpatient (CLI) | payer BC ==
[~2016-12-04] MED LIST changes: -BUPIVACAINE HCL PF 0.5% 30 ML VIAL INFIL ONE; -CHLORHEXIDINE GLUCONATE 2 % 1 PACK (2 CLOTHS) TOPICAL PRN; -DO NOT ADM ANY ANTICOAGULANT DRUGS PRN; -INSULIN HUMAN REGULAR 1,000 UNITS/10 ML VIAL SQ PRN; -LACTATED RINGER'S 1000 ML IV PRN; -METOPROLOL TARTRATE 25 MG TAB PO PRN; -MIDAZOLAM HCL 2 MG/2 ML VIAL ONE; -NALOXONE HCL 0.4 MG/ML AMP IV PRN; -ONDANSETRON HCL 4 MG/2 ML VIAL IV PUSH ONE; -POVIDONE IODINE 5% (ANTISEPSIS KIT) 4 APPLICATIONS EACH NARE PRN; -PROPOFOL 200 MG/20 ML AMP IV ONE; -Post-op Orders (for Pharmacy) MISC XX ONE; -SODIUM CHLORID 0.9% 500 ML IV PRN; -SODIUM CHLORIDE 0.9% FLUSH 10 ML FLUSH IV FLUSH PRN; -SODIUM CHLORIDE 0.9% FLUSH 10 ML FLUSH IV FLUSH SCH; -ULTR50TA5 PO; -ceFAZolin 2 GM PREMIX 50 ML IV SCH; -traMADol HCL 50 MG TAB PO PRN
== END ==
LOC: CPRE 14:12
PROVIDERS: ATTEND Podiatrist Primary Podiatric Medicine
DX: Z01.812 Encounter for preprocedural laboratory examination (principal)

== ENCOUNTER → 2016-12-08 | Day surgery (SDC) | payer BC ==
[~2016-12-08] VITALS: Ht 165.1 cm; Wt 45.2 kg
[~2016-12-08] MED LIST changes: +BUPIVACAINE HCL PF 0.5% 30 ML VIAL ONE; +CHLORHEXIDINE GLUCONATE 2 % 1 PACK (2 CLOTHS) TOPICAL PRN; +DO NOT ADM ANY ANTICOAGULANT DRUGS PRN; +FAMOTIDINE 20 MG/2 ML VIAL ONE; +INSULIN HUMAN REGULAR 1,000 UNITS/10 ML VIAL SQ PRN; +LACTATED RINGER'S 1000 ML IV PRN; +LIDOCAINE HCL 1% 50 ML VIAL ONE; -METO25TA3 PO; +METOPROLOL TARTRATE 25 MG TAB PO PRN; +MIDAZOLAM HCL 2 MG/2 ML VIAL ONE; +NALOXONE HCL 0.4 MG/ML AMP IV PRN; +ONDANSETRON HCL 4 MG/2 ML VIAL IV PUSH ONE; +POVIDONE IODINE 5% (ANTISEPSIS KIT) 4 APPLICATIONS EACH NARE PRN; +PROPOFOL 200 MG/20 ML AMP IV ONE; +Post-op Orders (for Pharmacy) MISC XX ONE; +SODIUM CHLORID 0.9% 500 ML IV PRN; +SODIUM CHLORIDE 0.9% FLUSH 10 ML FLUSH IV FLUSH PRN; +SODIUM CHLORIDE 0.9% FLUSH 10 ML FLUSH IV FLUSH SCH; +ceFAZolin 2 GM PREMIX 50 ML IV SCH; +fentaNYL CITRATE 250 MCG/5 ML AMP ONE; +traMADol HCL 50 MG TAB PO PRN
[2016-12-08 09:27] VITALS: BP 132/63; PULSE 76; RESP 18; TEMP 97.9; O2SAT 97
--- NOTE | 2016-12-08 11:35 | PD.OP ---
Operative Report Date of Surgery: December 08, 2016 Preoperative Diagnosis: (1) Gangrene due to arterial insufficiency Fifth toe left foot Postoperative Diagnosis: (1) Gangrene due to arterial insufficiency Fifth toe left foot Procedure: Amputation at the MPJ of the fifth toe left foot Anesthesia: General inhalation Surgeon: Hernando Marcelo DPM Steam Drier Tender(s): None Operation and Findings: Patient was brought to the operating room and placed on the operating table in the supine position. Patient was given general inhalation anesthesia and the left foot was prepped and draped in the usual sterile manner. After the appropriate timeout was performed attention was directed to the fifth toe of the left foot which is noted to have dry gangrene secondary to ischemia. At this time 2 semielliptical incisions were made at the base of the proximal phalanx. The incisions were deepened using sharp and blunt dissection. The metatarsal phalangeal joint was identified in the fifth toe was disarticulated and removed at the metatarsal phalangeal joint. There is flushed with copious amounts of sterile saline. Skin edges were reapproximated and closed with 3-0 Prolene. The wound was dressed with Adaptic 4 x 4's and Kailyn. Estimated blood loss was less than 10 cc. Fifth toe was sent for pathology. Sponge and instrument count was noted to be correct. Patient was transferred from the OR to PACU in apparent satisfactory condition is without spinal signs stable endovascular status intact to the remaining digits of the left foot. Hernando Marcelo DPM December 08, 2016 11:35
[2016-12-08 12:50] VITALS: BP 109/59; PULSE 60; RESP 20; TEMP 97.7; O2SAT 96
--- NOTE | 2016-12-08 13:14 | RADRPT ---
EXAM DATE/TIME: 12/08/2016 12:12 [facility] COMPARISON: FOOT LEFT COMPLETE ([id number]), November 10, 2016, 14:22. INDICATIONS : Post amputation 5th digit of left foot MEDICAL HISTORY : atherosclerosis SURGICAL HISTORY : 2nd digit of left foot amputated in October 2016 ENCOUNTER: Subsequent ACUITY: 1 day PAIN SCORE: 0/10 LOCATION: Left foot FINDINGS: 3 views of the left foot demonstrates amputation of the fifth toe. A small amount of gas is seen velvet g the distal fifth metatarsal. There is mild soft tissue swelling. There are no underlying bony destr uctive changes. The second toe has been previously amputated and is unremarkable. No other significant abnormalities noted. CONCLUSION: Minimal soft tissue gas identified adjacent to the distal fifth metatarsal following amputation. Soft tissue infection is suspected. There are no destructive bone changes. Emil Snyder MD on December 08, 2016 at 13:09 Board Certified Radiologist. This report was verified electronically.
== END | disposition home or self-care (01) ==
LOC: HSDC 08:56
PROVIDERS: ATTEND Podiatrist Primary Podiatric Medicine
DX: I96 Gangrene, not elsewhere classified (principal); I99.8 Other disorder of circulatory system; L97.529 Non-pressure chronic ulcer of other part of left foot with unspecified severity
CPT/HCPCS: 01470; 28820; 73630; 88305; 88311; J0690; J2250; J2405; J3010; J7120; L3260

== ENCOUNTER 2017-01-03 08:10 | Day surgery (SDC) | payer BC ==
[~2017-01-03] VITALS: Ht 165.1 cm; Wt 46.3 kg
[~2017-01-03 08:10] MED LIST changes: -BUPIVACAINE HCL PF 0.5% 30 ML VIAL ONE; -CHLORHEXIDINE GLUCONATE 2 % 1 PACK (2 CLOTHS) TOPICAL PRN; -DO NOT ADM ANY ANTICOAGULANT DRUGS PRN; -FAMOTIDINE 20 MG/2 ML VIAL ONE; -INSULIN HUMAN REGULAR 1,000 UNITS/10 ML VIAL SQ PRN; -LACTATED RINGER'S 1000 ML IV PRN; -LIDOCAINE HCL 1% 50 ML VIAL ONE; -MAPA500C PO; -METOPROLOL TARTRATE 25 MG TAB PO PRN; -MIDAZOLAM HCL 2 MG/2 ML VIAL ONE; -NALOXONE HCL 0.4 MG/ML AMP IV PRN; -ONDANSETRON HCL 4 MG/2 ML VIAL IV PUSH ONE; -OXYC1TAB63 PO; -POVIDONE IODINE 5% (ANTISEPSIS KIT) 4 APPLICATIONS EACH NARE PRN; -PROPOFOL 200 MG/20 ML AMP IV ONE; -Post-op Orders (for Pharmacy) MISC XX ONE; -SODIUM CHLORID 0.9% 500 ML IV PRN; -SODIUM CHLORIDE 0.9% FLUSH 10 ML FLUSH IV FLUSH PRN; -SODIUM CHLORIDE 0.9% FLUSH 10 ML FLUSH IV FLUSH SCH; -TRAM50TA PO; -ceFAZolin 2 GM PREMIX 50 ML IV SCH; -fentaNYL CITRATE 250 MCG/5 ML AMP ONE; -traMADol HCL 50 MG TAB PO PRN
[2017-01-03 08:58] LABS: AUTOMATED NEUTROPHIL # 3.7 TH/MM3 (1.8-7.7); BASOPHIL % 0.8 % (0.0-2.0); EOSINOPHIL # 0.2 TH/MM3 (0-0.4); EOSINOPHIL % 3.7 % (0.0-4.0); HEMATOCRIT 35.3 % (35.0-46.0); HEMO FLAGS DIFF FINAL; LYMPH % 25.8 % (9.0-44.0); LYMPHOCYTE # 1.5 TH/MM3 (1.0-4.8); MEAN CELL VOLUME 88.2 FL (80.0-100.0); MEAN CORPUSCULAR HEMOGLOBIN 28.8 PG (27.0-34.0); MEAN CORPUSCULAR HGB CONC 32.6 % (32.0-36.0); NEUT % 61.7 % (16.0-70.0); PLATELET COUNT 179 TH/MM3 (150-450); RED CELL DISTRIBUTION WIDTH 13.5 % (11.6-17.2)
[2017-01-03] MEDS ORDERED: SODIUM BICARBONATE 100 MEQ in D5W 1000 ML IV SCH (09:00)
--- NOTE | 2017-01-03 09:02 | PD.VS.PN ---
Pre-operative Note Pre-operative diagnosis: L LE rest pain, failed L LE bypass Planned procedure: Aortogram w/ L LE angiogram Interval History: Pt was seen yesterday. Overnight, continued foot pain but nothing that would preclude surgery today. Labs: Laboratory Results Test 01/03/17 08:30 White Blood Count 6.0 TH/MM3 (4.0-11.0) Red Blood Count 4.00 MIL/MM3 (4.00-5.30) Hemoglobin 11.5 GM/DL (11.6-15.3) Hematocrit 35.3 % (35.0-46.0) Mean Corpuscular Volume 88.2 FL (80.0-100.0) Mean Corpuscular Hemoglobin 28.8 PG (27.0-34.0) Mean Corpuscular Hemoglobin 32.6 % Concent (32.0-36.0) Red Cell Distribution Width 13.5 % (11.6-17.2) Platelet Count 179 TH/MM3 (150-450) Mean Platelet Volume 8.4 FL (7.0-11.0) other labs pending Blood: none needed Imaging: to be obtained in OR Orders: NPO Post-operative destination: DOCU Operative site marked: Yes Consent: Informed consent has been obtained from Belkys Garcia. I have explained the procedure in detail and discussed the risks, benefits, and potential complications. All questions have been answered. Horace Meza MD Jan 03, 2017 09:02
[2017-01-03 09:07] LABS: APTT (PATIENT) 28.2 SEC (24.3-30.1)
[2017-01-03 09:10] VITALS: BP 148/82; PULSE 77; RESP 18; TEMP 97.5; O2SAT 100
[2017-01-03 09:11] LABS: BICARBONATE 27.2 MEQ/L (21.0-32.0); POTASSIUM 3.1 MEQ/L (3.5-5.1)
[2017-01-03] MEDS: MIDAZOLAM HCL 5 MG/ML VIAL (1 ML) ONE ×2 (09:33→09:57)
[2017-01-03] MEDS: HEPARIN SODIUM - IV 10,000 UNITS/10 ML VIAL ONE ×2 (09:37→09:53)
[2017-01-03] MEDS ORDERED: IOHEXOL 300 MG/ML 50 ML BTL (for RAD DIAG) OTHER ONE (09:41)
[2017-01-03] MEDS ORDERED: IOHEXOL 300 MG/ML 100 ML BTL (for Rad CT) OTHER ONE (09:41)
[2017-01-03] MEDS ORDERED: MAPA500C PO (09:44)
[2017-01-03] MEDS ORDERED: TRAM50TA PO (09:44)
[2017-01-03] MEDS ORDERED: CLOP75TA PO (09:44)
--- NOTE | 2017-01-03 10:36 | HHI.PR ---
Immediate Post Op Note Procedure Date: Jan 03, 2017 Pre Op Diagnosis: PAD with rest pain L LE; failed distal bypass Post Op Diagnosis: same Surgeon: Horace Meza Test Rack Operator(s): none Procedure: Aortogram w/ L LE angiogram L SFA KNOCK OUT HAND (5mm) Findings: 1. Occluded bypass 2. Occluded SFA, recanalized and KNOCK OUT HAND 3. Occluded distal popliteal artery and all tibial arteries down to terminal AT Additional Information: R ALLERGY PHYSICIAN angioseal Complications: none Specimen(s) removed: none Estimated blood loss: 10mL Anesthesia: Conscious Sedation Drains: None Patient to: Other (DOCU) Patient Condition: Good Date/Time of Procedure: SEE SURGICAL CARE RECORD Horace Meza MD Jan 03, 2017 10:36
[2017-01-03] MEDS ORDERED: HYDROmorphone HCL PF 1 MG/ML VIAL IV PUSH PRN (10:45)
[2017-01-03] MEDS ORDERED: CLOPIDOGREL 75 MG TAB PO ONE (11:00)
[2017-01-03] MEDS ORDERED: POTASSIUM CHLORIDE 10 MEQ CONTROLLED RELEASE TAB PO ONE (11:00)
[2017-01-03] MEDS ORDERED: HYDROmorphone HCL PF 2 MG/ML VIAL ONE (11:15)
--- NOTE | 2017-01-03 13:04 | MP ---
cc: IVETTE MEZA MD DATE OF SURGERY 01/03/2017 PREOPERATIVE DIAGNOSIS Ischemic left lower extremity, peripheral arterial occlusive disease, failed distal bypass. POSTOPERATIVE DIAGNOSIS Ischemic left lower extremity, peripheral arterial occlusive disease, failed distal bypass. PROCEDURE 1. Aortogram with left lower extremity angiograms. 2. Left SFA angioplasty with 5 mm balloon. 3. Right common femoral artery Angio-Seal. MEDICATIONS Ivette Meza MD ANESTHESIA Local with sedation INDICATIONS Ms. Garcia is a 59 year-old lady who has a previous groin reconstruction and an anterior tibial artery bypass. This clinically is occluded and she is taken to the operating room for angiographic evaluation and potential treatment. There is no prior catheterization which revealed on my review significantly occlusion of her bypass. DESCRIPTION OF PROCEDURE Informed consent was obtained from the patient. She was taken to the operating room, placed supine on the operating room table and the appropriate time-out was taken to ensure the patient's identity, operative site and planned procedure. The administration of antibiotics was not necessary since this is a clean procedure without planned implantation of any foreign object. Everyone in the room agreed with the time-out and we proceeded. Her bilateral groins were prepped and draped. The right groin was anesthetized with 1% lidocaine. A 21 gauge micropuncture needle was used to access the right common femoral artery. This was exchanged using Seldinger technique with a micropuncture sheath through which a 0.035 Glidewire was used. The micropuncture sheath was exchanged for a 4-Emirati sheath and a VCF catheter was placed over the wire into the sheath and the aortogram, pelvic arteriogram was obtained. The Glidewire was reintroduced and navigated down to left common femoral artery and VCF catheter was advanced over this. A left lower extremity arteriogram was obtained. The patient was systemically heparinized with 5000 units of IV heparin. A 0.035 Cr wire was introduced through the VCF catheter and the VCF catheter and 4-Emirati sheath were removed and a 6-Emirati 55 cm Rachid sheath was introduced. Over the Cr and through the catheter and sheath was placed CXI catheter and the Cr was changed for a UPPERS EDGE BURNISHER wire. Using the UPPERS EDGE BURNISHER wire CXI catheter, we were able to navigate down the stenotic SFA and indeed across the occluded SFA into the popliteal artery. The Cr was then reintroduced. The CXI catheter was removed and the entire SFA was angioplastied with a 5-mm balloon. Completion angiogram showed excellent results on recoil extravasation. The wire, catheter and sheath were removed and the groin was closed with Angio-Seal. There were no complications. I was present and scrubbed for the entire procedure. INTERPRETATION The patient patent downgoing renal arteries bilaterally, patent infrarenal aorta, common iliac artery and external arteries bilaterally. The hypogastric arteries are occluded. The left common femoral and profunda are patent. The bypass is occluded. The [place] SFA is patent proximally and the SFA occludes and the mid SFA reconstitutes the popliteal artery. All the infrapopliteal blood vessels are occluded. Perigeniculate collaterals reconstitute a very distal anterior tibial artery that is the only named blood vessel below the knee. After angioplasty, there is excellent results to the SFA. There is no embolic complications. MD PRANAY Perez/JOE /11:00 AM /12:40 PM MELLO
== END 2017-01-03 15:43 | disposition home or self-care (01) ==
LOC: HCVO 08:10 → HDIC 08:12 → HCVO 15:43
PROVIDERS: ATTEND Surgery
DX: T82.898A Other specified complication of vascular prosthetic devices, implants and grafts, initial encounter (principal); I70.202 Unspecified atherosclerosis of native arteries of extremities, left leg; Z88.5 Allergy status to narcotic agent; Z79.02 Long term (current) use of antithrombotics/antiplatelets; Y83.2 Surgical operation with anastomosis, bypass or graft as the cause of abnormal reaction of the patient, or of later complication, without mention of misadventure at the time of the procedure
CPT/HCPCS: 37224; 75625; 75710; 80048; 85025; 85730; C1725; C1769; G0269; J1170; J1644; J2250; J3010; J7070; Q9967

== ENCOUNTER 2017-01-29 13:45 | Emergency (ER) | payer OTHER, BC ==
[~2017-01-29 13:45] MED LIST changes: -ADVI200T17 PO; -ASPI81TA81 PO; -EXCETAB40 PO; +MAPA500C PO; +TRAM50TA PO
[2017-01-29 14:01] VITALS: BP 150/65; PULSE 80; RESP 18; TEMP 98.2; O2SAT 100
[2017-01-29] MEDS ORDERED: SODIUM CHLOR 0.9% 1000 ML INJ 1,000 ML IV ONE ×2 (14:26→15:45)
--- NOTE | 2017-01-29 14:27 | PD ---
HPI Chief Complaint: Dizziness Time Seen by Provider: 14:27 Travel History International Travel<30 days: No Contact w/Intl Traveler<30days: No Traveled to known affect area: No History of Present Illness HPI 61-year-old female presents to the emergency department for evaluation dizziness , presyncope. [place] she felt dizzy and felt she was going to pass out. Patient did not have a syncopal episode. Patient denies any current headache. No fevers or chills. She denies any chest pain or shortness of breath. No abdominal pain. No vomiting. Patient does report chronic diarrhea for several years. She states she has had 6 episodes of diarrhea today. Patient states she was trying to drink water and Gatorade due to the heat. The patient does also report history of vertigo. Patient also has history of PAD, hypertension, chronic left foot pain. Patient states that she had a bypass surgery done to her left lower extremity. This failed and made she had to have revision. Since then, she reports chronic discomfort of the toes. She states she just followed up with Dr. Almazan last week and his pulse was found. She states her pipe cutter, Dr. Marcelo, this Sunday. Patient is on Plavix. Patient states dizziness/presyncope have resolved. Patient received 500 mL normal saline bolus via EMS. PFSH Past Medical History Cancer: No Cardiovascular Problems: Yes (TACHYCARDIA) Chest Pain: No Congestive Heart Failure: No Diabetes: No Endocrine: No Gastrointestinal Disorders: Yes (diarrhea, urgency to bathroom, incontinence) GERD: No Glaucoma: No Genitourinary: No Hepatitis: No Hiatal Hernia: No Hypertension: Yes Immune Disorder: No Medical other: No Musculoskeletal: Yes (BACK PAIN, OSTEOPOROSIS) Neurologic: No Psychiatric: No Reproductive: No Respiratory: No Integumentary: Yes Thyroid Disease: No Dilation and Curettage (D&C): Yes Past Surgical History Abdominal Surgery: No AICD: No Body Medical Devices: SCREWS IN L SHOULDER Cardiac Surgery: Yes (ANGIOGRAM WITH RUNOFF, HEART CATH 10/27/16, BYPASS L FEM) Ear Surgery: No Endocrine Surgery: No Eye Surgery: No Genitourinary Surgery: No Gynecologic Surgery: Yes (D&C 1988) Joint Replacement: No Oral Surgery: Yes (T&A WISDOM TEETH REMOVED) Pacemaker: No Thoracic Surgery: No Other Surgery: Yes (LEFT SECOND TOE JUN 2016) Social History Alcohol Use: No Tobacco Use: No Substance Use: No Allergies-Medications (Allergen,Severity, Reaction): Coded Allergies: Codeine (Verified Allergy, Mild, Dizziness, 01/29/17) Morphine (Verified Allergy, Mild, Nausea/Vomiting, 01/29/17) Reported Meds & Prescriptions Reported Meds & Active Scripts Active Reported Tramadol (Tramadol HCl) 50 Mg Tab 50 Mg PO Q6H PRN Clopidogrel (Clopidogrel Bisulfate) 75 Mg Tab 75 Mg PO DAILY Mapap (Acetaminophen) 500 Mg Cap 500 Mg PO Q4-6H PRN Vaseretic (Enalapril Maleate/HCTZ) 10-25 Mg Tab 1 Tab PO DAILY Melatonin Cr (Melatonin) 10 Mg Tab 1 Tab PO HS Fosamax (Alendronate Sodium) 70 Mg Tab 70 Mg PO Q7D Review of Systems Except as stated in HPI: all other systems reviewed are Neg Physical Exam Narrative GENERAL: Well-nourished, well-developed female patient, ambulatory. Afebrile. SKIN: Focused skin assessment warm/dry. HEAD: Normocephalic. Atraumatic. EYES: No scleral icterus. No injection or drainage. NECK: Supple, trachea midline. No JVD or lymphadenopathy. CARDIOVASCULAR: Regular rate and rhythm without murmurs, gallops, or rubs. Bilateral radial and right pedal pulses are easily palpated. RESPIRATORY: Breath sounds equal bilaterally. No accessory muscle use. Lungs sounds are clear to auscultation. GASTROINTESTINAL: Abdomen soft, non-tender, nondistended. MUSCULOSKELETAL: No cyanosis, or edema. Patient's second and fourth left toes are status post amputation. The other toes are slightly discolored. Pedal pulses and posterior tibial pulses are found with Doppler. Patient states this has how her foot has looked and is not new. Bilateral upper lotion with strength 5/5. All extremities are neurovascularly intact. BACK: Nontender without obvious deformity. No CVA tenderness. Data Data Last Documented VS Vital Signs Date Time Temp Pulse Resp B/P Pulse Ox O2 Delivery O2 Flow Rate FiO2 01/29/17 17:45 75 18 152/74 97 Room Air 01/29/17 14:01 98.2 Orders Admit Order (Ed Use Only) (01/29/17 14:03) Electrocardiogram (01/29/17 14:26) Complete Blood Count With Diff (01/29/17 14:26) Comprehensive Metabolic Panel (01/29/17 14:26) Magnesium (Mg) (01/29/17 14:26) Ckmb (Isoenzyme) Profile (01/29/17 14:26) Troponin I (01/29/17 14:26) Act Partial Throm Time (Ptt) (01/29/17 14:26) Prothrombin Time / Inr (Pt) (01/29/17 14:26) Urinalysis - C+S If Indicated (01/29/17 14:26) Ecg Monitoring (01/29/17 14:26) Iv Access Insert/Monitor (01/29/17 14:26) Oximetry (01/29/17 14:26) Sodium Chloride 0.9% Flush (Ns Flush) (01/29/17 14:30) Sodium Chlor 0.9% 1000 Ml Inj (Ns 1000 M (01/29/17 14:26) Orthostatic Vital Signs (01/29/17 14:31) Potassium Chloride Eff (K-Lyte Cl Eff) (01/29/17 15:45) Sodium Chlor 0.9% 1000 Ml Inj (Ns 1000 M (01/29/17 15:45) Troponin I (01/29/17 17:30) Labs Laboratory Tests Test 01/29/17 01/29/17 01/29/17 14:29 14:40 17:40 White Blood Count 7.8 TH/MM3 Red Blood Count 3.97 MIL/MM3 Hemoglobin 11.2 GM/DL Hematocrit 34.8 % Mean Corpuscular Volume 87.8 FL Mean Corpuscular Hemoglobin 28.2 PG Mean Corpuscular Hemoglobin 32.1 % Concent Red Cell Distribution Width 14.1 % Platelet Count 209 TH/MM3 Mean Platelet Volume 8.5 FL Neutrophils (%) (Auto) 76.5 % Lymphocytes (%) (Auto) 14.2 % Monocytes (%) (Auto) 7.1 % Eosinophils (%) (Auto) 1.5 % Basophils (%) (Auto) 0.7 % Neutrophils # (Auto) 6.0 TH/MM3 Lymphocytes # (Auto) 1.1 TH/MM3 Monocytes # (Auto) 0.6 TH/MM3 Eosinophils # (Auto) 0.1 TH/MM3 Basophils # (Auto) 0.1 TH/MM3 CBC Comment DIFF FINAL Differential Comment Prothrombin Time 10.8 SEC Prothromb Time International 1.0 RATIO Ratio Activated Partial 22.9 SEC Thromboplast Time Sodium Level 139 MEQ/L Potassium Level 2.9 MEQ/L Chloride Level 104 MEQ/L Carbon Dioxide Level 25.1 MEQ/L Anion Gap 10 MEQ/L Blood Urea Nitrogen 38 MG/DL Creatinine 1.61 MG/DL Estimat Glomerular Filtration 32 ML/MIN Rate Random Glucose 89 MG/DL Calcium Level 8.6 MG/DL Magnesium Level 2.0 MG/DL Total Bilirubin 0.3 MG/DL Aspartate Amino Transf 12 U/L (AST/SGOT) Alanine Aminotransferase 12 U/L (ALT/SGPT) Alkaline Phosphatase 67 U/L Total Creatine Kinase 54 U/L Troponin I LESS THAN 0.02 LESS THAN 0.02 NG/ML NG/ML Total Protein 6.7 GM/DL Albumin 3.4 GM/DL Urine Color YELLOW Urine Turbidity CLEAR Urine pH 6.0 Urine Specific Premium 1.014 Urine Protein 30 mg/dL Urine Glucose (UA) NEG mg/dL Urine Ketones NEG mg/dL Urine Occult Blood NEG Urine Nitrite NEG Urine Bilirubin NEG Urine Urobilinogen LESS THAN 2.0 MG/DL Urine Leukocyte Esterase SMALL Urine RBC 1 /hpf Urine WBC 5 /hpf Urine Squamous Epithelial 1 /hpf Cells Urine Transitional Epithelial 1 /hpf Cells Microscopic Urinalysis Comment CULT NOT INDICATED MDM Medical Decision Making Medical Screen Exam Complete: Yes Emergency Medical Condition: Yes Medical Record Reviewed: Yes Differential Diagnosis Dehydration were electrolyte abnormality versus ACS versus cardiac arrhythmia Narrative Course 61-year-old female presents to the emergency department for evaluation of dizziness that occurred while working [place] the beach. She also had 6 episodes of diarrhea today. Patient appears well on exam. She denies any other complaints at this time. EKG, CBC, CMP, magnesium, CK, troponin, UA, PTT, P/INR ordered and pending. Patient is given normal saline 1 L IV bolus. Patient is on Plavix and took a baby aspirin this morning. EKG shows sinus rhythm, heart rate 73. Patient has deep T waves in 2, 3, V4, V5 , V6 which are new compared to previous EKG. CBC shows no acute abnormality. CMP shows hypokalemia at 2.9, BUN 30, creatinine 1.61. Magnesium is 2.0. CK 54 , troponin is less than 0.02. Coags show no acute abnormality. UA is negative for acute infection. Patient is positive for the second hypertension with a supine blood pressure 158/68 and a standing of 122/71. Patient is walking around the emergency department without issue. Patient is given second liter normal saline IV bolus. I had an in-depth discussion with the patient concerning EKG changes. She denies any chest pain or shortness of breath. The patient does not want to be admitted to the hospital for further cardiac enzymes and stress test. She states that she will follow with her primary care physician for stress test. Patient is instructed to return for any worsening symptoms. Troponin will repeated in 3 hours as 1730. Patient is given potassium 50 meq by mouth. Repeat troponin is less than 0.02. Patient states she feels better and would like to be discharged now. Patient is instructed to follow-up with her primary care physician for outpatient stress test. She is to return for any worsening symptoms. She verbalizes agreement and understanding. Diagnosis Primary Impression: Dizziness Additional Impressions: Hypokalemia Nonspecific ST-T wave electrocardiographic changes Referrals: Primary Care Physician call for appointment Patient Instructions: Dizziness (ED), General Instructions, Hypokalemia (ED) Additional Instructions: Follow-up with your primary care physician. You will need outpatient stress test. Return to the emergency department for any acute worsening of symptoms. Med/Other Pt SpecificInfo: No Change to Meds Disposition: 01 DISCHARGE HOME Condition: Stable Renetta Garcia KENROY Jan 29, 2017 14:27
[2017-01-29] MEDS ORDERED: SODIUM CHLORIDE 0.9% FLUSH 10 ML FLUSH IVF PRN (14:30)
[2017-01-29 14:34] VITALS: O2SAT 99
[2017-01-29 14:43] LABS: BASOPHIL # 0.1 TH/MM3 (0-0.2); BASOPHIL % 0.7 % (0.0-2.0); EOSINOPHIL # 0.1 TH/MM3 (0-0.4); EOSINOPHIL % 1.5 % (0.0-4.0); HEMATOCRIT 34.8 % (35.0-46.0); HEMO FLAGS DIFF FINAL; LYMPH % 14.2 % (9.0-44.0); LYMPHOCYTE # 1.1 TH/MM3 (1.0-4.8); MEAN CELL VOLUME 87.8 FL (80.0-100.0); MEAN CORPUSCULAR HEMOGLOBIN 28.2 PG (27.0-34.0); MEAN CORPUSCULAR HGB CONC 32.1 % (32.0-36.0); MONO % 7.1 % (0.0-8.0); NEUT % 76.5 % (16.0-70.0); PLATELET COUNT 209 TH/MM3 (150-450); RED BLOOD COUNT 3.97 MIL/MM3 (4.00-5.30); RED CELL DISTRIBUTION WIDTH 14.1 % (11.6-17.2); WHITE BLOOD COUNT 7.8 TH/MM3 (4.0-11.0)
[2017-01-29 15:03] VITALS: BP_SYST 122; BP_SYST 134; BP_SYST 158; BP_DIAS 63; BP_DIAS 68; BP_DIAS 71
[2017-01-29 15:09] LABS: APTT (PATIENT) 22.9 SEC (24.3-30.1); PROTHROMBIN TIME - PATIENT 10.8 SEC (9.8-11.6)
[2017-01-29 15:28] LABS: BLOOD, URINE NEG (NEG); COMMENT (UR) CULT NOT INDICATED; CULTURE IF INDICATED CULT NOT INDICATED; GLUCOSE,URINE NEG (NEG); KETONE, URINE NEG (NEG); NITRITE,URINE NEG (NEG); SQUAMOUS EPITHELIAL CELL URINE 1 /hpf (0-5); TRANSITIONAL EPI CELLS, URINE 1 /hpf; URINE COLOR YELLOW (YELLW/STRAW)
[2017-01-29 15:32] LABS: ALKALINE PHOSPHATASE 67 U/L (45-117); ALT (GPT) 12 U/L (10-53); ANION GAP 10 MEQ/L (5-15); AST (GOT) 12 U/L (15-37); BICARBONATE 25.1 MEQ/L (21.0-32.0); BLOOD UREA NITROGEN 38 MG/DL (7-18); CHLORIDE 104 MEQ/L (98-107); CREATINE KINASE 54 U/L (26-192); GLOMERULAR FILTRATION RATE 32 ML/MIN (>89); SODIUM (NA) 139 MEQ/L (136-145); TOTAL BILIRUBIN ADULT 0.3 MG/DL (0.2-1.0)
[2017-01-29 15:34] LABS: POTASSIUM 2.9 MEQ/L (3.5-5.1)
[2017-01-29] MEDS ORDERED: POTASSIUM CHLORIDE 25 MEQ EFFERVESCENT TAB PO ONE (15:45)
[2017-01-29 17:45] VITALS: BP 152/74; PULSE 75; RESP 18; O2SAT 97
--- NOTE | 2017-01-30 13:27 | EKG ---
Date Performed: 01/29/2017 Time Performed: 14:44:55 PTAGE: 61 years EKG: Sinus rhythm SEPTAL MYOCARDIAL INFARCTION MODERATE T-WAVE ABNORMALITY, CONSIDER LATERAL ISCHEMIA ABNORMAL ECG PREVIOUS TRACING : 11/03/2016 03.49 Compared to prior tracing no significant change DOCTOR: Maksim Lane Interpretating Date/Time 01/30/2017 13:20:27
[2017-03-12] MEDS ORDERED: COMMODE 3-IN-11 MIS (13:51)
[2017-03-12] MEDS ORDERED: [UNRECOGNIZED DRUG - OTHER] (13:51)
[2017-03-12] MEDS ORDERED: WHEEMIS3 (13:51)
[2017-03-15] MEDS ORDERED: PANT40TA3 PO (09:13)
[2017-03-15] MEDS ORDERED: CLOP75TA PO (09:13)
[2017-03-15] MEDS ORDERED: OXYC1TAB35 PO (09:13)
[2017-03-15] MEDS ORDERED: GABA100C4 PO (09:13)
[2017-03-15] MEDS ORDERED: HYDR25TA5 PO (09:13)
== END 2017-01-29 19:47 | disposition home or self-care (01) ==
LOC: NEPE 13:45
DX: R42 Dizziness and giddiness (principal); E87.6 Hypokalemia; R94.31 Abnormal electrocardiogram [ECG] [EKG]; R55 Syncope and collapse; R19.7 Diarrhea, unspecified; I10 Essential (primary) hypertension; Z79.01 Long term (current) use of anticoagulants; Z86.79 Personal history of other diseases of the circulatory system; Z87.39 Personal history of other diseases of the musculoskeletal system and connective tissue; Z87.19 Personal history of other diseases of the digestive system
CPT/HCPCS: 80053; 81001; 82550; 83735; 84484; 85025; 85610; 85730; 93005; 99284; J7030

== ENCOUNTER 2017-02-26 08:18 | Inpatient (IN) | payer BC ==
[2017-02-26] VITALS (7 sets, daily range): BP systolic 91–125; BP diastolic 47–66; PULSE 80–100; RESP 17–20; TEMP 96.5–98.9; O2SAT 97–99
[~2017-02-26] VITALS: Ht 165.1 cm; Wt 45.0 kg
[2017-02-26] MEDS ORDERED: HYDROmorphone HCL PF 1 MG/ML VIAL IV PUSH ONE (09:15)
[2017-02-26 09:22] LABS: AUTOMATED NEUTROPHIL # 5.3 TH/MM3 (1.8-7.7); BASOPHIL # 0.1 TH/MM3 (0-0.2); BASOPHIL % 0.7 % (0.0-2.0); EOSINOPHIL # 0.2 TH/MM3 (0-0.4); EOSINOPHIL % 2.2 % (0.0-4.0); HEMATOCRIT 33.5 % (35.0-46.0); HEMO FLAGS DIFF FINAL; LYMPH % 18.2 % (9.0-44.0); LYMPHOCYTE # 1.4 TH/MM3 (1.0-4.8); MEAN CELL VOLUME 85.8 FL (80.0-100.0); MEAN CORPUSCULAR HEMOGLOBIN 30.1 PG (27.0-34.0); MEAN CORPUSCULAR HGB CONC 35.1 % (32.0-36.0); MONO % 7.4 % (0.0-8.0); NEUT % 71.5 % (16.0-70.0); PLATELET COUNT 273 TH/MM3 (150-450); RED BLOOD COUNT 3.91 MIL/MM3 (4.00-5.30); RED CELL DISTRIBUTION WIDTH 14.4 % (11.6-17.2); WHITE BLOOD COUNT 7.5 TH/MM3 (4.0-11.0)
[2017-02-26] MEDS ORDERED: PERC5TAB12 PO (09:24)
--- NOTE | 2017-02-26 09:38 | PD ---
HPI Chief Complaint: Skin Problem Time Seen by Provider: 08:51 Travel History International Travel<30 days: No Contact w/Intl Traveler<30days: No Traveled to known affect area: No History of Present Illness HPI This is a 62-year-old female who has a history of peripheral arterial disease with a failed left bypass who presents to the emergency department with increasing left lower extremity pain, constant, severe over the past one week with exertion and at rest associated with increasing redness of her left foot and opening of the wound where her left second toe was amputated with some yellow drainage. She denies any fevers but has felt some chills. She follows with Dr. Cobos. [facility] Past Medical History Cancer: No Cardiovascular Problems: Yes (TACHYCARDIA) Chest Pain: No Congestive Heart Failure: No Diabetes: No Endocrine: No Gastrointestinal Disorders: Yes (diarrhea, urgency to bathroom, incontinence) GERD: No Glaucoma: No Genitourinary: No Hepatitis: No Hiatal Hernia: No Hypertension: Yes Immune Disorder: No Medical other: No Musculoskeletal: Yes (BACK PAIN, OSTEOPOROSIS) Neurologic: No Psychiatric: No Reproductive: No Respiratory: No Integumentary: Yes Thyroid Disease: No Dilation and Curettage (D&C): Yes Past Surgical History Abdominal Surgery: No AICD: No Body Medical Devices: SCREWS IN L SHOULDER Cardiac Surgery: Yes (ANGIOGRAM WITH RUNOFF, HEART CATH 10/27/16, BYPASS L FEM) Ear Surgery: No Endocrine Surgery: No Eye Surgery: No Genitourinary Surgery: No Gynecologic Surgery: Yes (D&C 1988) Joint Replacement: No Neurologic Surgery: No Oral Surgery: Yes (T&A WISDOM TEETH REMOVED) Pacemaker: No Thoracic Surgery: No Other Surgery: Yes (LEFT SECOND TOE JUN 2016) Social History Alcohol Use: No Tobacco Use: No Substance Use: No Allergies-Medications (Allergen,Severity, Reaction): Coded Allergies: Codeine (Verified Allergy, Mild, Dizziness, 01/31/17) Morphine (Verified Allergy, Mild, Nausea/Vomiting, 01/31/17) Reported Meds & Prescriptions Reported Meds & Active Scripts Active Reported Percocet (Oxycodone-Acetaminophen) 5-325 mg Tab 1 Tab PO Q6HR PRN Clopidogrel (Clopidogrel Bisulfate) 75 Mg Tab 75 Mg PO DAILY Vaseretic (Enalapril Maleate/HCTZ) 10-25 Mg Tab 1 Tab PO DAILY Melatonin Cr (Melatonin) 10 Mg Tab 1 Tab PO HS Fosamax (Alendronate Sodium) 70 Mg Tab 70 Mg PO Q7D Review of Systems Except as stated in HPI: all other systems reviewed are Neg Physical Exam Narrative GENERAL:Well appearing, no acute distress SKIN: Erythema and some cyanosis of the toes on the left foot with some dry gangrene, stump of second toe is open with some yellow drainage, HEAD: Atraumatic. Normocephalic. EYES: Pupils equal and round. No injection or drainage. ENT: Moist mucous membranes NECK: Trachea midline. CARDIOVASCULAR: Regular rate and rhythm. No murmur appreciated. RESPIRATORY: Clear to auscultation. Breath sounds equal bilaterally. GASTROINTESTINAL: Abdomen soft, non-tender, nondistended. MUSCULOSKELETAL: No obvious deformities. VASCULAR: foot is cool, leg is warm, pulse was able to be appreciated by Doppler NEUROLOGICAL: Awake and alert. No obvious cranial nerve deficits. Moving all extremities. PSYCHIATRIC: Appropriate mood and affect; insight and judgment normal. Data Data Last Documented VS Vital Signs Date Time Temp Pulse Resp B/P Pulse Ox O2 Delivery O2 Flow Rate FiO2 02/26/17 08:37 98 18 02/26/17 08:36 98.4 125/58 99 Room Air Orders Complete Blood Count With Diff (02/26/17 09:02) Comprehensive Metabolic Panel (02/26/17 09:02) ^ Insert Iv (02/26/17 09:02) C-Reactive Protein (Crp) (02/26/17 09:02) Westergren Sedimentation Rate (02/26/17 09:02) Hydromorphone Pf Inj (Dilaudid Pf Inj) (02/26/17 09:15) Npo After Midnight W/ Po Meds (02/26/17 Dinner) Foot, Complete ([id number]) (02/26/17 ) Admit Order (Ed Use Only) (02/26/17 11:19) Labs Laboratory Tests Test 02/26/17 09:10 White Blood Count 7.5 TH/MM3 Red Blood Count 3.91 MIL/MM3 Hemoglobin 11.8 GM/DL Hematocrit 33.5 % Mean Corpuscular Volume 85.8 FL Mean Corpuscular Hemoglobin 30.1 PG Mean Corpuscular Hemoglobin 35.1 % Concent Red Cell Distribution Width 14.4 % Platelet Count 273 TH/MM3 Mean Platelet Volume 8.2 FL Neutrophils (%) (Auto) 71.5 % Lymphocytes (%) (Auto) 18.2 % Monocytes (%) (Auto) 7.4 % Eosinophils (%) (Auto) 2.2 % Basophils (%) (Auto) 0.7 % Neutrophils # (Auto) 5.3 TH/MM3 Lymphocytes # (Auto) 1.4 TH/MM3 Monocytes # (Auto) 0.5 TH/MM3 Eosinophils # (Auto) 0.2 TH/MM3 Basophils # (Auto) 0.1 TH/MM3 CBC Comment DIFF FINAL Differential Comment Erythrocyte Sedimentation Rate 43 mm/hr Sodium Level 138 MEQ/L Potassium Level 3.2 MEQ/L Chloride Level 102 MEQ/L Carbon Dioxide Level 24.1 MEQ/L Anion Gap 12 MEQ/L Blood Urea Nitrogen 37 MG/DL Creatinine 1.25 MG/DL Estimat Glomerular Filtration 43 ML/MIN Rate Random Glucose 96 MG/DL Calcium Level 9.0 MG/DL Total Bilirubin 0.3 MG/DL Aspartate Amino Transf 14 U/L (AST/SGOT) Alanine Aminotransferase 11 U/L (ALT/SGPT) Alkaline Phosphatase 62 U/L C-Reactive Protein 2.40 MG/DL Total Protein 6.8 GM/DL Albumin 3.4 GM/DL MDM Medical Decision Making Medical Screen Exam Complete: Yes Emergency Medical Condition: Yes Medical Record Reviewed: Yes (patient has a history of peripheral arterial disease) Interpretation(s) Afebrile, tachycardic No leukocytosis Mild renal insufficiency Mild hypokalemia CRP is 2.4 Differential Diagnosis Diabetic foot infection, osteomyelitis, sepsis, peripheral arterial disease, arterial occlusion Narrative Course This is a 62-year-old female who has a history of advanced peripheral arterial disease who presents to the emergency department with increasing pain in her left foot as well as some drainage from the left foot wound. The foot is poorly perfused but this appears to be subacute. I spoke to Dr. Almazan who knows the patient well and will evaluate the patient in the hospital for likely surgical intervention. Labs were obtained which were reassuring with the exception of elevated inflammatory markers Diagnosis Primary Impression: Peripheral arterial disease Admitting Information Admitting Physician Requests: Admit Anny Carmen MD Feb 26, 2017 09:38
[2017-02-26 09:43] LABS: ANION GAP 12 MEQ/L (5-15); AST (GOT) 14 U/L (15-37); BICARBONATE 24.1 MEQ/L (21.0-32.0); BLOOD UREA NITROGEN 37 MG/DL (7-18); CHLORIDE 102 MEQ/L (98-107); GLOMERULAR FILTRATION RATE 43 ML/MIN (>89); POTASSIUM 3.2 MEQ/L (3.5-5.1); SODIUM (NA) 138 MEQ/L (136-145)
[2017-02-26 09:44] LABS: ALT (GPT) 11 U/L (10-53)
[2017-02-26 09:47] LABS: ALKALINE PHOSPHATASE 62 U/L (45-117); TOTAL BILIRUBIN ADULT 0.3 MG/DL (0.2-1.0)
--- NOTE | 2017-02-26 11:16 | PD.VS.CON ---
History of Present Illness Chief Complaint: Left Foot pain w/ ischemia Consult Requested by: History of Present Illness Ms. Garcia is a 62/F who arrives to the ED with worsening Left foot pain w/ ischemia. Pt is s/p Left fem to anterior tibal artery bypass that was done on 10/30/16. Post op she was doing well and had her left 2nd and 5th toe amputated by Dr. Marcelo as planned post surgical intervention. Several weeks later she arrived to our out patient clinic c/o severe discoloration and pain to her left leg. She was then scheduled for an Aortogram with findings of an occluded bypass/SFA/distal popliteal artery and all tibial arteries down to terminal AT. Last week we discussed the possibility of an amputation. Pt agreed w/ plan and is ready. (Maira Pena) Past/Family/Social History Past Medical History PAD HTN Arthritis Migraines Past Surgical History Amputation of Left 2nd and 5th toe (Dr. Marcelo) Tonsillectomy Carpal Tunnel Social History Negative for tobacco, Etoh and illicit drugs (Maira Pena) Home Medications Reported Medications Oxycodone-Acetaminophen (Percocet)5-325 mg Tab1 Tab PO Q6HR PRN (PAIN) Ref 0 02/26/17 Clopidogrel 75 Mg Tab75 Mg PO DAILY Ref 0 01/03/17 Enalapril-Hydrochlorothiazide (Vaseretic)10-25 Mg Tab1 Tab PO DAILY 12/04/16 Melatonin (Melatonin Cr)10 Mg Tab1 Tab PO HS 06/29/16 Alendronate (Fosamax)70 Mg Tab70 Mg PO Q7D 06/29/16 Discontinued Reported Medications Tramadol 50 Mg Tab50 Mg PO Q6H PRN (PAIN) Ref 0 01/03/17 Acetaminophen (Mapap)500 Mg [id number] Mg PO Q4-6H PRN (PAIN) Ref 0 01/03/17 Coded Allergies: Codeine (Verified Allergy, Mild, Dizziness, 01/31/17) Morphine (Verified Allergy, Mild, Nausea/Vomiting, 01/31/17) Review of Systems Musculoskeletal: COMPLAINS OF: Joint pain, Muscle aches (Left ankle to foot ischemic with pain), Stiffness, Joint Swelling, Back pain, Neck pain (Maira Pena) Physical Exam Vitals/I&O Date Time Temp Pulse Resp B/P Pulse Ox O2 Delivery O2 Flow Rate FiO2 02/26/17 08:37 98 18 02/26/17 08:36 98.4 84 18 125/58 99 Room Air 02/26/17 08:27 98.9 100 20 122/66 97 Neuro: A&OX3 GCS15 Heart: RRR Vascular: Discolored Left ankle to foot left foot Cool to touch Purple discoloration sole of left foot Faint Monophasic Doppler signal L DP Left PT w/o signals (Maira Pena) Laboratory Tests Test 02/26/17 09:10 White Blood Count 7.5 Red Blood Count 3.91 Hemoglobin 11.8 Hematocrit 33.5 Mean Corpuscular Volume 85.8 Mean Corpuscular Hemoglobin 30.1 Mean Corpuscular Hemoglobin 35.1 Concent Red Cell Distribution Width 14.4 Platelet Count 273 Mean Platelet Volume 8.2 Neutrophils (%) (Auto) 71.5 Lymphocytes (%) (Auto) 18.2 Monocytes (%) (Auto) 7.4 Eosinophils (%) (Auto) 2.2 Basophils (%) (Auto) 0.7 Neutrophils # (Auto) 5.3 Lymphocytes # (Auto) 1.4 Monocytes # (Auto) 0.5 Eosinophils # (Auto) 0.2 Basophils # (Auto) 0.1 CBC Comment DIFF FINAL Differential Comment Erythrocyte Sedimentation Rate 43 Sodium Level 138 Potassium Level 3.2 Chloride Level 102 Carbon Dioxide Level 24.1 Anion Gap 12 Blood Urea Nitrogen 37 Creatinine 1.25 Estimat Glomerular Filtration 43 Rate Random Glucose 96 Calcium Level 9.0 Total Bilirubin 0.3 Aspartate Amino Transf 14 (AST/SGOT) Alanine Aminotransferase 11 (ALT/SGPT) Alkaline Phosphatase 62 C-Reactive Protein 2.40 Total Protein 6.8 Albumin 3.4 (Maira Pena) Assessment and Plan Assessment: (1) Ischemic foot pain at rest Status: Acute Plan Plan Discussed with patient surgical Intervention Left BKA with Dr. Almazan Pt stated she is ready and agreed with plan Second Consult ordered per hospital policy Consent signed and placed in the chart Pt scheduled for tomorrow AM Left BKA NPO after midnight Maira JASMINE [facility] [phone] (Maira Pena) Plan I agree with above A/P. Patients left leg marked today. Plan for left BKA after multiple failed revascularizations with continued wounds and intractable rest pain. Lino Almazan DO, FACS (Lino Almazan DO) Maira Pena Feb 26, 2017 11:15 Lino Almazan DO Feb 26, 2017 13:12
[2017-02-26] MEDS ORDERED: oxyCODONE/ACETAMINOPHEN 7.5 MG/325 MG TAB PO PRN (11:45)
[2017-02-26] MEDS ORDERED: cloNIDine HCL 0.1 MG TAB PO PRN (11:45)
[2017-02-26] MEDS ORDERED: ALENDRONATE SODIUM 70 MG TAB PO SCH (11:45)
[2017-02-26] MEDS ORDERED: NALOXONE HCL 0.4 MG/ML AMP IV PRN (11:45)
[2017-02-26] MEDS ORDERED: ONDANSETRON HCL 4 MG/2 ML VIAL IVP PRN (11:45)
[2017-02-26] MEDS ORDERED: SODIUM CHLORIDE 0.9% FLUSH 10 ML FLUSH IV FLUSH PRN (11:45)
[2017-02-26] MEDS ORDERED: ACETAMINOPHEN 325 MG TAB PO PRN (11:45)
--- NOTE | 2017-02-26 11:45 | HHI.HP ---
[facility] Service Family Medicine Primary Care Physician Non-Staff Admission Diagnosis peripheral arterial disease Diagnoses: International Travel<30 Days: No Contact w/Intl Traveler<30days: No Known Affected Area: No History of Present Illness Patient is a 62 year old female with past history of PAD, HTN and left toe 2nd/ 5th toe amputation who came into the ED with complaint of left foot pain and discoloration. Patient was being seen outpatient by Dr. Almazan's clinic following left femoral to anterior tibal artery bypass that was done on . She continued to have foot pain and discoloration following the bypass and discussed options with her vascular surgeon. She states she was advised to come into the ED if the pain greatly increased, for the possibility of a below knee amputation. The pain greatly increased over the last 2 days, pain meds did not help much. It's described as numb, cold, "a million bees," shooting pains, constant, 10/10, rubbing makes it better sometimes, not taking pain pills makes it worse (oxycodone). She hasn't slept in 3 days, cant eat, in a fog from sleep deprivation. She also notes that her hip hurts now secondary to having to change her gait in order to limit stepping on her foot. She also notes there has been an area on her left foot where her second toe was removed that has had discharge over the past few days. She states her left foot has gotten dark in color. No other complaints of nausea, vomiting, fever, chills, chest pain, shortness of breath, abdominal pain, change in bowel habits, change in urinary habits. She does note that she has diarrhea, however this is not a change from normal as she has had chronic diarrhea since 2011 with no diagnosis. Review of Systems Constitutional: COMPLAINS OF: Change in appetite, DENIES: Diaphoretic episodes , Fatigue, Fever, Weight gain, Chills, Dizziness, Night Sweats Endocrine: DENIES: Heat/cold intolerance, Polydipsia, Polyuria Eyes: DENIES: Blurred vision, Diplopia, Eye pain, Vision loss, Photosensitivity , Double Vision Ears, nose, mouth, throat: DENIES: Nasal discharge, Oral lesions, Throat pain, Running Nose, Epistaxis, Sinus Pain, Toothache, Odynophagia Respiratory: DENIES: Apneas, Cough, Snoring, Wheezing, Hemoptysis, Sputum production, Shortness of breath Cardiovascular: COMPLAINS OF: Lower Extremity Edema (Says her legs are typicall very paolo), DENIES: Chest pain, Palpitations, Syncope, Dyspnea on Exertion, PND, Orthopnea Gastrointestinal: COMPLAINS OF: Diarrhea, DENIES: Abdominal pain, Black stools , Bloody stools, Constipation, Nausea, Vomiting, Difficulty Swallowing Genitourinary: DENIES: Urinary frequency, Urinary incontinence, Urgency Musculoskeletal: DENIES: Joint pain, Muscle aches, Stiffness, Joint Swelling, Back pain Integumentary: COMPLAINS OF: Abnormal pigmentation (Discolored, darkened left foot), DENIES: Pruritus, Rash, Nail changes Hematologic/lymphatic: DENIES: Bruising Immunologic/allergic: DENIES: Eczema, Urticaria Neurologic: COMPLAINS OF: Abnormal gait, DENIES: Headache, Localized weakness , Paresthesias Past Family Social History Past Medical History Osteoporosis HTN PAD Stated that her doctors "don't like her ekgs recently" 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 Past Surgical History Colles fracture with fixation 2002 D/C in 1979 endometriosis carpal tunnel release in right hand left toes amputation october and november 2 and 5th toes [place] teeth in From EMR - Left fem to anterior tibal artery bypass that was done on 10/30/16 Reported Medications Oxycodone Advil pm melatonin, 5mg Benadryl Enalapril Plavix Allergies: Coded Allergies: Codeine (Verified Adverse Reaction, Mild, Dizziness, 02/26/17) Morphine (Verified Adverse Reaction, Mild, Nausea/Vomiting, 02/26/17) Uncoded Allergies: Sulfonylureas (Adverse Reaction, Intermediate, Diarrhea, 02/26/17) Family History Mom - 82 CHF diabetes Dad 79 CHF 2 Brothers (69),(66), reported healthy Social History Alcohol- Used to drink in her 20's, no longer Drugs- used to smoke pot about a year ago, about a bowl a night smoking- 40 years, 1 pack every 3 day. Stopped June Physical Exam Vital Signs Vital Signs Date Time Temp Pulse Resp B/P Pulse Ox O2 Delivery O2 Flow Rate FiO2 02/26/17 08:37 98 18 02/26/17 08:36 98.4 84 18 125/58 99 Room Air 02/26/17 08:27 98.9 100 20 122/66 97 Physical Exam GENERAL: This is a well-nourished, well-developed patient, in no apparent distress. SKIN: No rashes, ecchymoses or lesions. Cool and dry. HEAD: Atraumatic. Normocephalic. No temporal or scalp tenderness. EYES: Pupils equal round and reactive. Extraocular motions intact. No scleral icterus. No injection or drainage. ENT: Nose without bleeding, purulent drainage or septal hematoma. Throat without erythema, tonsillar hypertrophy or exudate. Uvula midline. Airway patent. NECK: Trachea midline. No JVD or lymphadenopathy. Supple, nontender, no meningeal signs. CARDIOVASCULAR: Regular rate and rhythm without murmurs, gallops, or rubs. RESPIRATORY: Clear to auscultation. Breath sounds equal bilaterally. No wheezes , rales, or rhonchi. GASTROINTESTINAL: Abdomen soft, non-tender, nondistended. No hepato-splenomegaly , or palpable masses. No guarding. MUSCULOSKELETAL: Extremities without clubbing, cyanosis, or edema. No joint tenderness, effusion, or edema noted. No calf tenderness. Negative Homans sign bilaterally. NEUROLOGICAL: Awake and alert. Cranial nerves II through XII intact. Motor and sensory grossly within normal limits. Five out of 5 muscle strength in all muscle groups. Normal speech. Laboratory Laboratory Tests Test 02/26/17 09:10 White Blood Count 7.5 Red Blood Count 3.91 Hemoglobin 11.8 Hematocrit 33.5 Mean Corpuscular Volume 85.8 Mean Corpuscular Hemoglobin 30.1 Mean Corpuscular Hemoglobin 35.1 Concent Red Cell Distribution Width 14.4 Platelet Count 273 Mean Platelet Volume 8.2 Neutrophils (%) (Auto) 71.5 Lymphocytes (%) (Auto) 18.2 Monocytes (%) (Auto) 7.4 Eosinophils (%) (Auto) 2.2 Basophils (%) (Auto) 0.7 Neutrophils # (Auto) 5.3 Lymphocytes # (Auto) 1.4 Monocytes # (Auto) 0.5 Eosinophils # (Auto) 0.2 Basophils # (Auto) 0.1 CBC Comment DIFF FINAL Differential Comment Erythrocyte Sedimentation Rate 43 Sodium Level 138 Potassium Level 3.2 Chloride Level 102 Carbon Dioxide Level 24.1 Anion Gap 12 Blood Urea Nitrogen 37 Creatinine 1.25 Estimat Glomerular Filtration 43 Rate Random Glucose 96 Calcium Level 9.0 Total Bilirubin 0.3 Aspartate Amino Transf 14 (AST/SGOT) Alanine Aminotransferase 11 (ALT/SGPT) Alkaline Phosphatase 62 C-Reactive Protein 2.40 Total Protein 6.8 Albumin 3.4 Result Diagram: 02/26/17 0910 02/26/17 0910 Imaging Last Impressions Foot X-Ray 02/26/17 0000 Signed Impressions: Service Date/Time: Sunday, February 26, 2017 11:18 - CONCLUSION: Slight osteopenia. K. Chauncey Yañez MD Assessment and Plan Assessment and Plan 62 year old female with past left 2nd/5th toes amputation 2/2 PAD, left fem to anterior tibial artery bypass that was done on 10/30/16 with following increase in discoloration and pain. Assessed and managed by vascular surgery outpatient. Currently demonstrates resting ischemia. Patient knows and is anticipating left BKA. Problem List: (1) Ischemic foot pain at rest Status: Acute Plan: Discoloration and foot pain in left foot, s/p left femoral to anterior tibial artery bypass done on 10/30/16. Outpatient plan to amputate with worsening signs and symptoms, currently worsening. Patient knows of and eagerly anticipating amputation. -pain control -BKA tomorrow (02/27/17) (2) HTN (hypertension) Status: Chronic Plan: Chronic Hypertension -Continue home medications -Enalapril 10 mg daily -Hydrochlorothiazide 25 mg daily (3) FEN Status: Acute Plan: Fluids - Currently on maintenance Electrolytes -Monitor and correct as needed Nutrition -NPO after midnight Prophylaxis -Going to OR tomorrow, will consider chemical prophylaxis s/p BKA Jeremías Lala MD R1 Feb 26, 2017 11:45
--- NOTE | 2017-02-26 11:52 | RADRPT ---
EXAM DATE/TIME: 02/26/2017 11:18 [facility] COMPARISON: No previous studies available for comparison. INDICATIONS : Left foot pain and swelling. MEDICAL HISTORY : Atherosclerosis. SURGICAL HISTORY : Amputation of second and fifth digit. ENCOUNTER: Initial ACUITY: 1 year PAIN SCORE: 10/10 LOCATION: Left foot. FINDINGS: No definite fractures, or dislocations are identified. No definite lytic or sclerotic lesion is seen . Slight osteopenia is seen. There is amputation of the second and fifth digits at the level of the metatarsophalangeal joint. CONCLUSION: Slight osteopenia. Sandi Yañez MD on February 26, 2017 at 11:50 Board Certified Radiologist. This report was verified electronically.
[2017-02-26] MEDS: oxyCODONE/ACETAMINOPHEN 10 MG/325 MG TAB PO PRN ×2 (14:18→19:43)
[2017-02-26] MEDS: HYDROmorphone HCL 2 MG TAB PO PRN ×2 (17:04→23:00)
[2017-02-26] MEDS: SODIUM CHLOR 0.9% 1000 ML INJ 1,000 ML IV SCH ×2 (17:05→19:44)
[2017-02-26] MEDS: SODIUM CHLORIDE 0.9% FLUSH 10 ML FLUSH IV FLUSH SCH (19:44)
[2017-02-26] MEDS ORDERED: MELATONIN 10 MG PO SCH (21:00)
[2017-02-26] MEDS ORDERED: DOCUSATE SODIUM 50 MG/SENNA 8.6 MG TAB PO PRN (21:00)
[2017-02-26] MEDS ORDERED: DOCUSATE SODIUM 50 MG/SENNA 8.6 MG TAB PO SCH (21:00)
[2017-02-26] MEDS ORDERED: TEMAZEPAM 15 MG CAP PO PRN (21:00)
[2017-02-26] MEDS ORDERED: LACTATED RINGER'S 1000 ML IV PRN (22:00)
[2017-02-27 02:17] VITALS: O2SAT 98
[2017-02-27] MEDS: oxyCODONE/ACETAMINOPHEN 10 MG/325 MG TAB PO PRN ×3 (02:59→20:14)
[2017-02-27] MEDS: HYDROmorphone HCL 2 MG TAB PO PRN ×2 (04:15→16:49)
[2017-02-27 04:35] VITALS: BP 108/60; PULSE 88; RESP 18; TEMP 96.9; O2SAT 99
[2017-02-27 07:59] VITALS: BP 93/54; PULSE 87; RESP 17; TEMP 96.7; O2SAT 100
[2017-02-27 07:59] LABS: APTT (PATIENT) 27.5 SEC (24.3-30.1); PROTHROMBIN TIME - PATIENT 10.7 SEC (9.8-11.6)
[2017-02-27 08:02] LABS: AUTOMATED NEUTROPHIL # 3.7 TH/MM3 (1.8-7.7); BASOPHIL % 0.7 % (0.0-2.0); EOSINOPHIL # 0.2 TH/MM3 (0-0.4); EOSINOPHIL % 2.8 % (0.0-4.0); HEMATOCRIT 31.5 % (35.0-46.0); HEMO FLAGS DIFF FINAL; LYMPH % 24.4 % (9.0-44.0); LYMPHOCYTE # 1.4 TH/MM3 (1.0-4.8); MEAN CORPUSCULAR HEMOGLOBIN 28.9 PG (27.0-34.0); MEAN CORPUSCULAR HGB CONC 33.6 % (32.0-36.0); MONO % 8.6 % (0.0-8.0); NEUT % 63.5 % (16.0-70.0); PLATELET COUNT 242 TH/MM3 (150-450); RED BLOOD COUNT 3.66 MIL/MM3 (4.00-5.30); RED CELL DISTRIBUTION WIDTH 14.5 % (11.6-17.2); WHITE BLOOD COUNT 5.8 TH/MM3 (4.0-11.0)
[2017-02-27 08:19] LABS: ALT (GPT) 8 U/L (10-53); ANION GAP 7 MEQ/L (5-15); AST (GOT) 10 U/L (15-37); BICARBONATE 25.6 MEQ/L (21.0-32.0); BLOOD UREA NITROGEN 40 MG/DL (7-18); CHLORIDE 107 MEQ/L (98-107); GLOMERULAR FILTRATION RATE 50 ML/MIN (>89); POTASSIUM 3.6 MEQ/L (3.5-5.1); SODIUM (NA) 140 MEQ/L (136-145)
[2017-02-27 08:21] LABS: ALKALINE PHOSPHATASE 49 U/L (45-117); TOTAL BILIRUBIN ADULT 0.2 MG/DL (0.2-1.0)
[2017-02-27] MEDS: ENALAPRIL MALEATE 10 MG TAB PO SCH (08:30)
[2017-02-27] MEDS: SODIUM CHLORIDE 0.9% FLUSH 10 ML FLUSH IV FLUSH SCH ×2 (08:30→20:12)
[2017-02-27] MEDS: HYDROCHLOROTHIAZIDE 25 MG TAB PO SCH (08:30)
[2017-02-27] MEDS ORDERED: ceFAZolin 2 GM PREMIX 50 ML ONE (08:52)
[2017-02-27] MEDS ORDERED: VANCOMYCIN HCL 1000 MG VIAL ONE (08:52)
[2017-02-27] MEDS ORDERED: THROMBIN (TOPICAL) 20,000 UNIT SPRAY KIT ONE (08:53)
[2017-02-27] MEDS ORDERED: ENALAPRIL HYDROCHLOROTHIAZIDE PO SCH (09:00)
[2017-02-27] MEDS ORDERED: HYDROmorphone HCL PF 2 MG/ML VIAL ONE (09:07)
[2017-02-27] MEDS ORDERED: FAMOTIDINE 20 MG/2 ML VIAL ONE (10:20)
[2017-02-27] MEDS ORDERED: DEXAMETHASONE SOD PHOS 4 MG/ML VIAL ONE (10:20)
[2017-02-27] MEDS ORDERED: ACETAMINOPHEN 1000 MG/100 ML VIAL IV ONE (10:20)
[2017-02-27] MEDS ORDERED: MIDAZOLAM HCL 2 MG/2 ML VIAL ONE (10:20)
--- NOTE | 2017-02-27 10:27 | PD.VS.PN ---
Subjective Subjective/Hospital Course Ms. Garcia was admitted yesterday for pain relief. I have had the privilege of knowing her for some time and she has critical limb ischemia and unreconstructable PAD. She is ready for her LEFT BKA. Objective Vitals/I&O Date Time Temp Pulse Resp B/P Pulse Ox O2 Delivery O2 Flow Rate FiO2 02/27/17 09:45 21 02/27/17 07:59 96.7 87 17 93/54 100 02/27/17 04:35 96.9 88 18 108/60 99 02/27/17 02:17 98 21 02/26/17 23:30 96.7 80 17 98/47 99 02/26/17 19:41 96.7 86 18 102/61 97 02/26/17 15:00 96.5 93 18 91/48 99 02/26/17 12:59 98 18 108/55 98 Room Air 02/26/17 12:08 99 21 Physical Exam LEFT leg cool below mid calf. Tissue loss of toes. Laboratory Laboratory Tests Test 02/27/17 02/27/17 07:35 09:35 White Blood Count 5.8 Red Blood Count 3.66 Hemoglobin 10.6 Hematocrit 31.5 Mean Corpuscular Volume 86.0 Mean Corpuscular Hemoglobin 28.9 Mean Corpuscular Hemoglobin 33.6 Concent Red Cell Distribution Width 14.5 Platelet Count 242 Mean Platelet Volume 7.8 Neutrophils (%) (Auto) 63.5 Lymphocytes (%) (Auto) 24.4 Monocytes (%) (Auto) 8.6 Eosinophils (%) (Auto) 2.8 Basophils (%) (Auto) 0.7 Neutrophils # (Auto) 3.7 Lymphocytes # (Auto) 1.4 Monocytes # (Auto) 0.5 Eosinophils # (Auto) 0.2 Basophils # (Auto) 0.0 CBC Comment DIFF FINAL Differential Comment Prothrombin Time 10.7 Prothromb Time International 1.0 Ratio Activated Partial 27.5 Thromboplast Time Sodium Level 140 Potassium Level 3.6 Chloride Level 107 Carbon Dioxide Level 25.6 Anion Gap 7 Blood Urea Nitrogen 40 Creatinine 1.10 Estimat Glomerular Filtration 50 Rate Random Glucose 87 Calcium Level 8.6 Total Bilirubin 0.2 Aspartate Amino Transf 10 (AST/SGOT) Alanine Aminotransferase 8 (ALT/SGPT) Alkaline Phosphatase 49 Total Protein 6.2 Albumin 3.0 Blood Type B POSITIVE Imaging Last 48 hours Impressions Foot X-Ray 02/26/17 0000 Signed Impressions: Service Date/Time: Sunday, February 26, 2017 11:18 - CONCLUSION: Slight osteopenia. Sandi aYñez MD Assessment and Plan Assessment: (1) Ischemic foot pain at rest Status: Acute Plan I agree with assessment of Dr. Almazan - she needs a major amputation. The patient agrees. To OR. Horace Meza MD Feb 27, 2017 10:27
--- NOTE | 2017-02-27 11:16 | HHI.FPPN ---
Subjective Remarks Patient seen and examined this morning. Afebrile vital signs stable. She reports that she is doing well her pain is tolerable but she is ready for her amputation. She is in good spirits and thinks that the amputation will greatly improve her quality of life. She denies any nausea or vomiting, she denies any chest pain or shortness breath. Endorses: None Denies: Fever, chills, nausea, vomiting, shortness of breath, chest pain, headache, abdominal pain, calf pain (Tommie Garduno MD R2) Objective Vitals Vital Signs Date Time Temp Pulse Resp B/P Pulse Ox O2 Delivery O2 Flow Rate FiO2 02/27/17 09:45 21 02/27/17 07:59 96.7 87 17 93/54 100 02/27/17 04:35 96.9 88 18 108/60 99 02/27/17 02:17 98 21 02/26/17 23:30 96.7 80 17 98/47 99 02/26/17 19:41 96.7 86 18 102/61 97 02/26/17 15:00 96.5 93 18 91/48 99 02/26/17 12:59 98 18 108/55 98 Room Air 02/26/17 12:08 99 21 I/O 02/26/17 02/26/17 02/26/17 02/27/17 02/27/17 02/27/17 06:59 14:59 22:59 06:59 14:59 22:59 Intake Total 640 ml 746 ml Balance 640 ml 746 ml Intake Oral 480 ml 0 ml IV Total 160 ml 746 ml # Voids 4 1 # Bowel Movements 4 1 (Tommie Garduno MD R2) Result Diagram: 02/27/17 0735 02/27/17 0735 Imaging Last Impressions Foot X-Ray 02/26/17 0000 Signed Impressions: Service Date/Time: Sunday, February 26, 2017 11:18 - CONCLUSION: Slight osteopenia. Sandi Yañez MD Objective Remarks GENERAL: Skinny well-developed patient in no apparent distress SKIN: Warm and dry. HEAD: Normocephalic. EYES: No scleral icterus. No injection or drainage. NECK: Supple, trachea midline. No JVD or lymphadenopathy. Mild bruit of the left carotid CARDIOVASCULAR: Regular rate and rhythm without murmurs, gallops, or rubs. RESPIRATORY: Breath sounds equal bilaterally. No accessory muscle use. GASTROINTESTINAL: Abdomen soft, non-tender, nondistended. MUSCULOSKELETAL: No cyanosis, or edema. Left foot with amputation of second, fourth and fifth toe. Ulceration of the foot where the 2nd toe was removed. Nonpalpable pulses in the left foot. BACK: Nontender without obvious deformity. No CVA tenderness. Medications and IVs Current Medications Medications (Trade) Dose Ordered Sig/Praveen Route Start Time Stop Time Status Last Admin (NS Flush) 2 ml UNSCH PRN IV FLUSH 02/26/17 11:45 (NS Flush) 2 ml BID IV FLUSH 02/26/17 21:00 02/27/17 08:30 (Tylenol) 650 mg Q4H PRN PO 02/26/17 11:45 (Zofran Inj) 4 mg Q6H PRN IVP 02/26/17 11:45 (Narcan Inj) 0.4 mg UNSCH PRN IV 02/26/17 11:45 (Milk Of Magnpastora Liq) 30 ml Q12H PRN PO 02/26/17 11:45 Patient Own Medication PT OWN MED: MELATO... HS PO 02/26/17 21:00 Hold (Percocet 7.5-325 Mg) 1 tab Q4H PRN PO 02/26/17 11:45 (Percocet 10-325 Mg) 1 tab Q4H PRN PO 02/26/17 11:45 02/27/17 06:50 (Dilaudid) 0.5 mg Q3HR PRN PO 02/26/17 11:45 02/27/17 04:15 (Ada-Colace) 1 tab BID PRN PO 02/26/17 21:00 (Catapres) 0.1 mg Q6H PRN PO 02/26/17 11:45 (Vasotec) 10 mg DAILY PO 02/27/17 09:00 Hydrochlorothiazide 25 mg 25 mg DAILY PO 02/27/17 09:00 Sodium Chloride 1,000 ml @ 84 mls/hr [id number] IV 02/26/17 16:30 02/26/17 19:44 (Lr 1000 ml Inj) 1,000 ml @ 30 mls/hr Q24H PRN IV 02/26/17 22:00 8/3/17 21:59 (Tommie Garduno MD R2) A/P Assessment and Plan 62 year old female with past left 2nd/5th toes amputation 2/2 PAD, left fem to anterior tibial artery bypass that was done on 10/30/16 with following increase in discoloration and pain. Assessed and managed by vascular surgery outpatient. Currently demonstrates resting ischemia. Patient knows and is anticipating left BKA. Discharge Planning Pending results of BKA and further recovery (Tommie Garduno MD R2) Attending Attestation Patient seen and examined. Case reviewed and discussed with the resident team in detail. EMR reviewed. Agree with plan of care as discussed with me and documented in the resident note. (Mykel Dalton MD) Problem List: (1) Ischemic foot pain at rest Status: Acute Plan: Discoloration and foot pain in left foot, s/p left femoral to anterior tibial artery bypass done on 10/30/16. Outpatient plan to amputate with worsening signs and symptoms, currently worsening. Patient knows of and eagerly anticipating amputation. -Percocet 7.5/325 every 4 hours when necessary pain scale 1-5 -Percocet 10/325 every 4 hours when necessary pain scale 6-10 -Dilaudid 0.5 every 3 hours when necessary breakthrough pain -BKA today (02/27/17) (2) HTN (hypertension) Status: Chronic Plan: Chronic Hypertension -Continue home medications -Enalapril 10 mg daily -Hydrochlorothiazide 25 mg daily (3) Lung nodule Status: Acute Plan: Patient reports history of lung nodule. Long-standing history of smoking. * CT scan of the chest ordered: Results pending (4) Left carotid bruit Status: Acute Plan: Left carotid bruit heard on exam. History of PAD. * Carotid ultrasound ordered: Results pending (5) FEN Status: Acute Plan: Fluids - Currently on maintenance Electrolytes -Monitor and correct as needed Nutrition -NPO. We'll progress diet after BKA Prophylaxis -Going to OR tomorrow, will consider chemical prophylaxis s/p BKA (Tommie Garduno MD R2) Tommie Garduno MD R2 Feb 27, 2017 11:16 Mykel Dalton MD Feb 28, 2017 17:02
[2017-02-27] MEDS ORDERED: PHENYLEPH/NS 1000 MCG/10 ML SYR IV ONE (12:00)
[2017-02-27] MEDS ORDERED: NEOSTIGMINE 3 MG/3 ML SYR IV ONE (12:00)
[2017-02-27] MEDS ORDERED: ONDANSETRON HCL 4 MG/2 ML VIAL IV PUSH ONE (12:00)
[2017-02-27] MEDS ORDERED: PROPOFOL 200 MG/20 ML AMP IV ONE (12:00)
[2017-02-27] MEDS ORDERED: NORMOSOL R INJ 1,000 ML IV ONE (12:00)
[2017-02-27] MEDS: SODIUM CHLOR 0.9% 1000 ML INJ 1,000 ML IV SCH ×2 (12:10→20:13)
--- NOTE | 2017-02-27 12:13 | HHI.PR ---
Immediate Post Op Note Procedure Date: Feb 27, 2017 Pre Op Diagnosis: (1) Gangrene due to arterial insufficiency Post Op Diagnosis: (1) Gangrene due to arterial insufficiency Surgeon: Lino Almazan Agricultural Extension Officer(s): Rodo Weiss Procedure: Left BKA Findings: ischemia Additional Information: NA Complications: None Specimen(s) removed: Left BKA stump Estimated blood loss: 50cc Anesthesia: General Drains: None Fluids: 1200 cc IVF Tourniquet time (min at mmHg) 14 minutes Patient to: PACU Patient Condition: Good Implant/Devices: Other Date/Time of Procedure: Other Lino Almazan DO Feb 27, 2017 12:13
[2017-02-27] MEDS ORDERED: ZOLPIDEM TARTRATE 5 MG TAB PO PRN (12:15)
[2017-02-27] MEDS ORDERED: GLUCAGON 1 MG/ML VIAL OTHER PRN (12:15)
[2017-02-27] MEDS ORDERED: ACETAMINOPHEN 325 MG TAB PO PRN (12:15)
[2017-02-27] MEDS ORDERED: DEXTROSE 50% IN WATER 50 ML VIAL(D50) IV PUSH PRN (12:15)
[2017-02-27] MEDS ORDERED: Post-op Orders (for Pharmacy) MISC OTHER ONE (12:15)
[2017-02-27] MEDS ORDERED: MAGNESIUM HYDROXIDE SUSP 30 ML CUP PO PRN (12:15)
[2017-02-27] MEDS ORDERED: oxyCODONE/ACETAMINOPHEN 10 MG/325 MG TAB PO PRN (12:15)
[2017-02-27] MEDS ORDERED: ONDANSETRON HCL 4 MG/2 ML VIAL IV PUSH PRN (12:15)
[2017-02-27] MEDS ORDERED: oxyCODONE/ACETAMINOPHEN 5 MG/325 MG TAB PO PRN (12:15)
[2017-02-27] MEDS ORDERED: *HYDROmorphone PF 1 MG VIAL PERIprocedural Use ONLY ONE ×2 (12:47→13:31)
[2017-02-27] MEDS ORDERED: DO NOT ADM ANY ANTICOAGULANT DRUGS PRN (13:00)
[2017-02-27] MEDS ORDERED: *ONDANSETRON 4 MG VIAL PERIprocedural Use ONLY ONE (13:15)
--- NOTE | 2017-02-27 13:42 | EKG ---
Date Performed: 02/26/2017 Time Performed: 13:06:31 PTAGE: 62 years EKG: Sinus rhythm LEFT VENTRICULAR HYPERTROPHY AND ST-T CHANGE POSSIBLE SEPTAL MYOCARDIAL INFARCTION Since previous tr acing, no significant change noted ABNORMAL ECG PREVIOUS TRACING : 01/29/2017 14.44 DOCTOR: Enrrique Mason Interpretating Date/Time 02/27/2017 13:42:10
[2017-02-27] MEDS ORDERED: fentaNYL CITRATE 250 MCG/5 ML AMP ONE (14:59)
--- NOTE | 2017-02-27 15:59 | RADRPT ---
EXAM DATE/TIME: 02/27/2017 14:42 [facility] COMPARISON: No previous studies available for comparison. INDICATIONS : Occlusion. MEDICAL HISTORY : Peripheral vascular disease. Hypertension. Osteoporosis. Left eye cataract. Tachycardia. Coronary art lew disease. SURGICAL HISTORY : Tonsillectomy. Angioplasty. Adenoidectomy. Cardiac cath. Bypass left femoral. Angiogram with runoff . D&C. Left shoulder repair with screws. Right carpel tunnel. Left second toe. Right BKA. ENCOUNTER: Initial ACUITY: 1 day PAIN SCORE: 0/10 LOCATION: Bilateral neck PEAK SYSTOLIC VELOCITIES (cm/sec): ICA/CCA RATIO: Right: 1.6 Left: 1.5 ICA: Right: 146 Left: 142 CCA: Right: 92 Left: 92 ECA: Right: 75 Left: 88 VERTEBRAL: Right: 85 antegrade Left: 114 antegrade Elevated flow velocities and ICA/CCA ratios have been found to correlate with increased degrees of vessel stenosis, calculated as percentage of diameter relative to a normal segment of distal ICA/CCA FINDINGS: There is moderate visible plaque formation in the carotid arteries bilaterally especially at the elias tid bifurcations. Mildly elevated peak systolic velocity is present in the internal carotid arteries bilaterally and PSV ratio is noted to be slightly elevated as well bilaterally. Vertebral artery flow antegrade. CONCLUSION: 1. Moderate visible plaque formation bilaterally with velocity measurements most characteristic of a mild to moderate bilateral carotid stenosis. Vertebral artery flow antegrade. Ryan Martinez MD on February 27, 2017 at 15:54 Board Certified Radiologist. This report was verified electronically.
[2017-02-27 16:00] VITALS: BP 146/66; PULSE 89; RESP 16; TEMP 96.9; O2SAT 100
[2017-02-27] MEDS: INSULIN NovoLIN REGULAR SUPPLEMENTAL SCALE SQ SCH ×2 (18:00→23:46)
[2017-02-27] MEDS: MORPHINE SULFATE 4 MG/ML INJ IV PUSH PRN ×2 (18:41→23:09)
[2017-02-27 19:13] VITALS: BP 160/71; PULSE 60; RESP 18; TEMP 96.7; O2SAT 99
--- NOTE | 2017-02-27 19:34 | MP ---
cc: BROOK AYALA DATE OF SURGERY 02/27/2017 PREOPERATIVE DIAGNOSIS Critical limb ischemia, history of failed revascularization left lower extremity on multiple attempts. ATTENDING SURGEON Dr. Brook Ayala FBI INVESTIGATOR Rodo Weiss. PROCEDURE Left below-knee amputation. ESTIMATED BLOOD LOSS 50 cc. IV FLUIDS 1200 mL COMPLICATIONS None. DISPOSITION To Postanesthesia care unit. PROCEDURE The patient's left leg was prepped and draped in sterile fashion after beginning him on perioperative antibiotics and being placed under general endotracheal anesthesia. I made an anterior incision transversely approximately one handbreadth below the tibial tuberosity, and then I made another incision posteriorly approximately a handbreadth below this with two vertical incisions laterally anterior and lateral. I used a scalpel and electrocautery to do this and I used the Bovie to cut through the muscles and used two 2-0 sutures and ties in order to tie off any bleeding vessels. Before I did proceed forward my amputation, I did place a tourniquet around the thigh. I had marked the leg before insufflating to approximately 250 mmHg. I used a periosteal elevator, removing any tissue off the tibia and the fibula. I tied off the tibial nerve with a 0 suture ligature and allowed it to retract. Most of the vessels in the leg were thrombosed but I did use a 0 suture ligature around the anterior tibial artery x2. I used electrocautery as needed and FloSeal and Surgicel to help out with hemostasis. I used an oscillating saw to cut through the tibia and fibula at a beveled angle. I then used a rasp in order to smooth the edges of the tibia and fibula. I did use bone wax to assist in bleeding from the distal end of the transected bones. Then I used a amputation knife to remove the posterior tissue and to remove the amputation stump. I then irrigated the stump with normal saline as needed. I used 2-0 suture ligatures as needed to help out with bleeding. I used 2-0 Vicryl absorbable sutures to approximate the soft tissue over the tibial stump. I used multiple 2-0 and 3-0 interrupted Vicryl absorbable sutures in order to approximate the deep tissue and then the subcutaneous tissue. I used trip for the skin and we used a Xeroform and 4x4 dressing with Ioban. Then we used multiple fluffs around the amputation stump and placed a Kerlix and Gene bandage around the stump. The patient tolerated the procedure. DO LINDA Mike/YARITZA /12:04 PM /7:13 PM
[2017-02-27] MEDS: DOCUSATE CALCIUM 240 MG CAP PO SCH ×2 (20:12→21:00)
[2017-02-27] MEDS: PANTOPRAZOLE SOD 40 MG DELAYED RELEASE TAB PO SCH (20:13)
[2017-02-27] MEDS: VANCOMYCIN INJ 1,000 MG in SODIUM CHLOR 0.9% 250 ML INJ 250 ML IV SCH (20:18)
[2017-02-27] MEDS ORDERED: IOHEXOL 350 MG/ML 10 ML VIAL (for RAD DIAG) IV ONE (21:30)
--- NOTE | 2017-02-27 22:45 | RADRPT ---
EXAM DATE/TIME: 02/27/2017 21:24 [facility] COMPARISON: CTA RUNOFF W 3D RECON, October 14, 2016, 11:06. INDICATIONS : Shortness of breath. 5 mm pulmonary nodule right lung base found on CTA done back in september. Evaluate progression of nodule. IV CONTRAST: 75 cc Omnipaque 350 (iohexol) IV RADIATION DOSE: 3.34 CTDIvol (mGy) MEDICAL HISTORY : Peripheral vascular disease. Hypertension. Coronary artery disease. SURGICAL HISTORY : Cardiac cath. ENCOUNTER: Initial ACUITY: 1 day PAIN SCALE: 0/10 LOCATION: Bilateral chest TECHNIQUE: Volumetric scanning of the chest was performed. Using automated exposure control and adjustment of t he mA and/or kV according to patient size, radiation dose was kept as low as reasonably achievable to obtain optimal diagnostic quality images. DICOM format image data is available electronically for review and comparison. Follow-up recommendations for incidentally detected pulmonary nodules are based at a minimum on nodul e size and patient risk factors according to Fleischner Society Guidelines. FINDINGS: LUNGS: There is a solitary smooth margin 6 mm pulmonary nodule lower lateral right lung, best seen on image #37, which is stable in size and appearance when compared to prior CT a 10/14/16. There is some mild scattered areas of scarring in the periphery of both lungs, all measuring less than 3 mm in size. Th ere is also a 1.1 cm right lower lung pulmonary cyst with thin wall. PLEURA: There is no pleural thickening or pleural effusion. MEDIASTINUM: The heart and great vessels demonstrate no acute abnormality. There is no mediastinal or hilar lymph adenopathy. AXILLAE: Within normal limits. No lymphadenopathy. SKELETAL: Within normal limits for patient age. CONCLUSION: 1. Stable 6 mm nodule right lower lung. In accordance with Fleischner society guidelines, recommend followup exam in 12 months. 2. Mild scattered areas of interstitial scarring in the periphery both lungs. Lupillo Becker MD on February 27, 2017 at 22:38 Board Certified Radiologist. This report was verified electronically.
[2017-02-27 23:43] VITALS: BP 143/68; PULSE 79; RESP 18; TEMP 97; O2SAT 98
[2017-02-28] MEDS: oxyCODONE/ACETAMINOPHEN 10 MG/325 MG TAB PO PRN ×4 (02:57→19:59)
[2017-02-28] MEDS: SODIUM CHLOR 0.9% 1000 ML INJ 1,000 ML IV SCH ×3 (04:15→17:13)
[2017-02-28 04:46] VITALS: BP 170/78; PULSE 98; RESP 17; TEMP 97.6; O2SAT 98
[2017-02-28] MEDS: MORPHINE SULFATE 4 MG/ML INJ IV PUSH PRN ×3 (05:01→22:35)
[2017-02-28] MEDS: INSULIN NovoLIN REGULAR SUPPLEMENTAL SCALE SQ SCH ×4 (06:00→23:19)
[2017-02-28 07:53] LABS: HEMATOCRIT 28.9 % (35.0-46.0); MEAN CELL VOLUME 86.6 FL (80.0-100.0); MEAN CORPUSCULAR HEMOGLOBIN 29.5 PG (27.0-34.0); PLATELET COUNT 249 TH/MM3 (150-450); RED BLOOD COUNT 3.34 MIL/MM3 (4.00-5.30); RED CELL DISTRIBUTION WIDTH 14.8 % (11.6-17.2); REVIEW FLAG FINAL; WHITE BLOOD COUNT 9.2 TH/MM3 (4.0-11.0)
[2017-02-28 07:59] VITALS: BP 153/81; PULSE 105; RESP 18; TEMP 97.4; O2SAT 97
[2017-02-28 08:16] LABS: ANION GAP 9 MEQ/L (5-15); AST (GOT) 25 U/L (15-37); BICARBONATE 22.8 MEQ/L (21.0-32.0); BLOOD UREA NITROGEN 26 MG/DL (7-18); CHLORIDE 110 MEQ/L (98-107); GLOMERULAR FILTRATION RATE 72 ML/MIN (>89); POTASSIUM 3.5 MEQ/L (3.5-5.1); SODIUM (NA) 142 MEQ/L (136-145)
[2017-02-28 08:18] LABS: ALKALINE PHOSPHATASE 47 U/L (45-117); ALT (GPT) 9 U/L (10-53); TOTAL BILIRUBIN ADULT 0.2 MG/DL (0.2-1.0)
[2017-02-28] MEDS: ASPIRIN EC 325 MG TABEC PO SCH (08:26)
[2017-02-28] MEDS: HYDROCHLOROTHIAZIDE 25 MG TAB PO SCH (08:27)
[2017-02-28] MEDS: ENALAPRIL MALEATE 10 MG TAB PO SCH (08:28)
[2017-02-28] MEDS: SODIUM CHLORIDE 0.9% FLUSH 10 ML FLUSH IV FLUSH SCH ×2 (08:29→20:00)
[2017-02-28] MEDS: VANCOMYCIN INJ 1,000 MG in SODIUM CHLOR 0.9% 250 ML INJ 250 ML IV SCH (08:29)
[2017-02-28 12:00] VITALS: BP 126/64; PULSE 93; RESP 18; TEMP 97.3; O2SAT 97
--- NOTE | 2017-02-28 13:51 | PD.VS.PN ---
Subjective POD #: 1 Procedure(s): left BKA Subjective/Hospital Course No complaints Objective Vitals/I&O Date Time Temp Pulse Resp B/P Pulse Ox O2 Delivery O2 Flow Rate FiO2 02/28/17 12:00 97.3 93 18 126/64 97 02/28/17 09:38 16 02/28/17 07:59 97.4 105 18 153/81 97 02/28/17 04:46 97.6 98 17 170/78 98 02/27/17 23:43 97.0 79 18 143/68 98 02/27/17 19:13 96.7 60 18 160/71 99 02/27/17 16:00 96.9 89 16 146/66 100 02/27/17 13:54 97.7 84 20 139/55 100 Nasal Cannula 2 02/28/17 02/28/17 02/28/17 07:00 15:00 23:00 Intake Total 968 ml Balance 968 ml Incisions: left BKA stump with dressing in place. Laboratory Laboratory Tests Test 02/28/17 06:56 White Blood Count 9.2 Red Blood Count 3.34 Hemoglobin 9.8 Hematocrit 28.9 Mean Corpuscular Volume 86.6 Mean Corpuscular Hemoglobin 29.5 Mean Corpuscular Hemoglobin 34.0 Concent Red Cell Distribution Width 14.8 Platelet Count 249 Mean Platelet Volume 7.9 Sodium Level 142 Potassium Level 3.5 Chloride Level 110 Carbon Dioxide Level 22.8 Anion Gap 9 Blood Urea Nitrogen 26 Creatinine 0.80 Estimat Glomerular Filtration 72 Rate Random Glucose 93 Calcium Level 7.9 Total Bilirubin 0.2 Aspartate Amino Transf 25 (AST/SGOT) Alanine Aminotransferase 9 (ALT/SGPT) Alkaline Phosphatase 47 Total Protein 5.3 Albumin 2.4 Assessment and Plan Assessment: (1) Ischemic foot pain at rest Status: Acute Plan Left BKA stump with dressing in place. 03/01 plan for removal of dressing and stump protector placement. Lino Almazan DO Feb 28, 2017 13:51
--- NOTE | 2017-02-28 14:31 | HHI.FPPN ---
Subjective Remarks Patient seen and examined this morning. Patient has been afebrile, vital signs stable. Status post left below the knee amputation, postop day #1. Patient reports feeling well overall. Her pain is currently well controlled. She denies chest pain, shortness of breath, abdominal pain. She has been eating and drinking well, denies nausea, vomiting. She is eager to work with physical therapy. She has no other acute concerns. Objective Vitals Vital Signs Date Time Temp Pulse Resp B/P Pulse Ox O2 Delivery O2 Flow Rate FiO2 02/28/17 12:00 97.3 93 18 126/64 97 02/28/17 09:38 16 02/28/17 07:59 97.4 105 18 153/81 97 02/28/17 04:46 97.6 98 17 170/78 98 02/27/17 23:43 97.0 79 18 143/68 98 02/27/17 19:13 96.7 60 18 160/71 99 02/27/17 16:00 96.9 89 16 146/66 100 I/O 02/27/17 02/27/17 02/27/17 02/28/17 02/28/17 02/28/17 07:00 15:00 23:00 07:00 15:00 23:00 Intake Total 746 ml 1300 ml 1159 ml 968 ml Output Total 50 ml 0 ml Balance 746 ml 1250 ml 1159 ml 968 ml Intake Oral 0 ml 0 ml 480 ml 240 ml IV Total 746 ml 100 ml 679 ml 728 ml Other 1200 ml Output Stool Total 0 ml Estimated Blood Loss 50 ml # Voids 1 1 2 3 # Bowel Movements 1 0 0 Result Diagram: 02/28/17 0656 02/28/17 0656 Objective Remarks GENERAL: Thin, well-developed patient in no apparent distress SKIN: Warm and dry. HEAD: Normocephalic. EYES: No scleral icterus. No injection or drainage. NECK: Supple, trachea midline. No JVD or lymphadenopathy. Mild bruit of the left carotid CARDIOVASCULAR: Regular rate and rhythm without murmurs, gallops, or rubs. RESPIRATORY: Breath sounds equal bilaterally. No accessory muscle use. GASTROINTESTINAL: Abdomen soft, non-tender, nondistended. MUSCULOSKELETAL: Normal appearance of right lower extremity. Left lower extremity with BKA, wrapped firmly with Gene bandage and in an immobilizer. Normal sensation of left proximal lower extremity. NEURO: Cranial nerves II through XII grossly intact. Patient is alert and oriented. A/P Assessment and Plan 62 year old female with past left 2nd/5th toes amputation 2/2 PAD, left fem to anterior tibial artery bypass that was done on 10/30/16 with following increase in discoloration and pain. Assessed and managed by vascular surgery outpatient. S/P BKA on 02/28/17. Discharge Planning Pending clearance by vascular surgery. Problem List: (1) Amputation of left lower extremity below knee Status: Acute Plan: Pt presented with discoloration, decreased circulation and foot pain in left foot, s/p left femoral to anterior tibial artery bypass done on 10/30/16. S/P Left BKA on 02/27/17, POD #1 -Vascular surgery managing, Appreciate intervention and recommendations -Anticipate dressing removal on 03/01 and stump protector placement -Continue to monitor for bleeding, signs of infection Pain control: Percocet 39238 Q4hrs for pain 610 Percocet 7.5325 Q4hrs for pain 1-5 Dilaudid 0.5 mg Q3hrs PRN breakthrough Adjust as needed (2) HTN (hypertension) Status: Chronic Plan: Chronic Hypertension -Continue home medications -Enalapril 10 mg daily -Hydrochlorothiazide 25 mg daily (3) Lung nodule Status: Acute Plan: Patient reports history of lung nodule. Long-standing history of smoking. -Chest CT 02/27/17: Stable 6 mm nodule in the right lower lung. Follow-up exam recommended in 12 months. Mild scattered areas of interstitial scarring peripherally in both lungs. (4) Left carotid bruit Status: Acute Plan: Left carotid bruit heard on exam. History of PAD. * Carotid ultrasound 02/27: Moderate visible plaque formation bilaterally with velocity measurements most characteristic of a mild to moderate bilateral carotid stenosis. (5) FEN Status: Acute Plan: Fluids - Currently on maintenance Electrolytes -Monitor and correct as needed Nutrition -Regular diet, supplemented with ensure Prophylaxis -GISELLA, Prateek coronado, Pt POD #1 we'll hold off on additional chemoprophylaxis to avoid bleeding Nita Pettit MD R2 Feb 28, 2017 14:31
[2017-02-28 16:00] VITALS: BP 140/70; PULSE 86; RESP 18; TEMP 97.1; O2SAT 97
[2017-02-28] MEDS: PANTOPRAZOLE SOD 40 MG DELAYED RELEASE TAB PO SCH (19:59)
[2017-02-28] MEDS: DOCUSATE CALCIUM 240 MG CAP PO SCH (20:00)
[2017-02-28 20:10] VITALS: PULSE 108; RESP 17; TEMP 98; O2SAT 97
[2017-02-28 23:10] VITALS: BP 147/79; PULSE 95; RESP 17; TEMP 98.4; O2SAT 97
[2017-03-01] MEDS: oxyCODONE/ACETAMINOPHEN 10 MG/325 MG TAB PO PRN ×5 (00:46→22:52)
[2017-03-01] MEDS: SODIUM CHLOR 0.9% 1000 ML INJ 1,000 ML IV SCH ×2 (05:13→16:00)
[2017-03-01] MEDS: MORPHINE SULFATE 4 MG/ML INJ IV PUSH PRN ×2 (05:13→12:01)
[2017-03-01] MEDS: INSULIN NovoLIN REGULAR SUPPLEMENTAL SCALE SQ SCH ×4 (06:00→23:03)
[2017-03-01 06:59] LABS: AUTOMATED NEUTROPHIL # 6.4 TH/MM3 (1.8-7.7); BASOPHIL % 0.5 % (0.0-2.0); EOSINOPHIL # 0.1 TH/MM3 (0-0.4); EOSINOPHIL % 1.3 % (0.0-4.0); HEMATOCRIT 28.5 % (35.0-46.0); HEMO FLAGS DIFF FINAL; LYMPH % 14.3 % (9.0-44.0); LYMPHOCYTE # 1.2 TH/MM3 (1.0-4.8); MEAN CELL VOLUME 85.6 FL (80.0-100.0); MEAN CORPUSCULAR HEMOGLOBIN 29.3 PG (27.0-34.0); MEAN CORPUSCULAR HGB CONC 34.3 % (32.0-36.0); MONO % 8.1 % (0.0-8.0); NEUT % 75.8 % (16.0-70.0); PLATELET COUNT 219 TH/MM3 (150-450); RED BLOOD COUNT 3.33 MIL/MM3 (4.00-5.30); RED CELL DISTRIBUTION WIDTH 14.5 % (11.6-17.2); WHITE BLOOD COUNT 8.4 TH/MM3 (4.0-11.0)
[2017-03-01 07:32] LABS: ALKALINE PHOSPHATASE 51 U/L (45-117); ALT (GPT) 11 U/L (10-53); ANION GAP 8 MEQ/L (5-15); AST (GOT) 44 U/L (15-37); BICARBONATE 26.9 MEQ/L (21.0-32.0); BLOOD UREA NITROGEN 13 MG/DL (7-18); CHLORIDE 106 MEQ/L (98-107); GLOMERULAR FILTRATION RATE 103 ML/MIN (>89); POTASSIUM 3.4 MEQ/L (3.5-5.1); SODIUM (NA) 141 MEQ/L (136-145); TOTAL BILIRUBIN ADULT 0.3 MG/DL (0.2-1.0)
[2017-03-01 08:00] VITALS: BP 161/78; PULSE 106; RESP 18; TEMP 98.2; O2SAT 96
[2017-03-01] MEDS: SODIUM CHLORIDE 0.9% FLUSH 10 ML FLUSH IV FLUSH SCH ×2 (09:00→20:32)
[2017-03-01] MEDS: MAGNESIUM HYDROXIDE SUSP 30 ML CUP PO PRN ×2 (09:51→20:32)
[2017-03-01] MEDS: HYDROCHLOROTHIAZIDE 25 MG TAB PO SCH (09:51)
[2017-03-01] MEDS: ASPIRIN EC 325 MG TABEC PO SCH (09:51)
[2017-03-01] MEDS: ENALAPRIL MALEATE 10 MG TAB PO SCH (09:51)
--- NOTE | 2017-03-01 11:00 | HHI.FPPN ---
Subjective Remarks Pt states that she is doing well since her left BKA on 02/26/17, except for phantom discomfort and a sore on her right foot. She feels the sore on the ball of her foot when she ambulates and says "it is like the bone in my foot is touching the floor." She has been readjusting herself in bed to avoid pressure ulcers and would like to try ambulating more. No nausea, vomiting, fever, chills , chest pain, shortness of breath, abdominal pain, change in urinary habits. Patient states that she had several bouts of diarrhea yesterday, which is normal for her. Not dark, no red streaks. She has no other concerns at this time. Objective Vitals Vital Signs Date Time Temp Pulse Resp B/P Pulse Ox O2 Delivery O2 Flow Rate FiO2 02/28/17 23:10 98.4 95 17 147/79 97 02/28/17 20:10 98.0 108 17 97 02/28/17 17:14 16 02/28/17 16:00 97.1 86 18 140/70 97 02/28/17 15:30 16 02/28/17 12:00 97.3 93 18 126/64 97 I/O 02/28/17 02/28/17 02/28/17 03/01/17 03/01/17 03/01/17 07:00 15:00 23:00 07:00 15:00 23:00 Intake Total 968 ml 720 ml 1749 ml 1007 ml Balance 968 ml 720 ml 1749 ml 1007 ml Intake Oral 240 ml 720 ml 480 ml 360 ml IV Total 728 ml 1269 ml 647 ml # Voids 3 3 1 3 # Bowel Movements 0 1 0 0 Result Diagram: 03/01/17 0640 03/01/17 0640 Imaging Last Impressions Chest CT 02/27/17 0000 Signed Impressions: Service Date/Time: Monday, February 27, 2017 21:24 - CONCLUSION: 1. Stable 6 mm nodule right lower lung. In accordance with Fleischner society guidelines, recommend followup exam in 12 months. 2. Mild scattered areas of interstitial scarring in the periphery both lungs. Lupillo Becker MD Carotid Artery Ultrasound 02/27/17 0000 Signed Impressions: Service Date/Time: Monday, February 27, 2017 14:42 - CONCLUSION: 1. Moderate visible plaque formation bilaterally with velocity measurements most characteristic of a mild to moderate bilateral carotid stenosis. Vertebral artery flow antegrade. Ryan Maritnez MD Foot X-Ray 02/26/17 0000 Signed Impressions: Service Date/Time: Sunday, February 26, 2017 11:18 - CONCLUSION: Slight osteopenia. Sandi Yañez MD Objective Remarks GENERAL: Thin, well-developed patient in no apparent distress, She was lying in bed comfortably this morning. SKIN: Warm and dry. HEAD: Normocephalic. EYES: No scleral icterus. No injection or drainage. NECK: Supple, trachea midline. No JVD or lymphadenopathy. Mild bruit of the left carotid CARDIOVASCULAR: Regular rate and rhythm without murmurs, gallops, or rubs. RESPIRATORY: Breath sounds equal bilaterally. No accessory muscle use. GASTROINTESTINAL: Abdomen soft, non-tender, nondistended. MUSCULOSKELETAL: Normal appearance of right lower extremity, except for 1 cm dry , non-erythematous. flat, ulcer near anterior lateral plantar surface. Left lower extremity with BKA, wrapped firmly with Gene bandage and in an immobilizer. No drainage visible through bandage wrap. Normal sensation of left proximal lower extremity. NEURO: Patient is alert and oriented. Procedures s/p left BKA on 02/27/17 Medications and IVs Current Medications Medications (Trade) Dose Ordered Sig/Praveen Route Start Time Stop Time Status Last Admin (NS Flush) 2 ml UNSCH PRN IV FLUSH 02/26/17 11:45 (NS Flush) 2 ml BID IV FLUSH 02/26/17 21:00 02/28/17 20:00 (Tylenol) 650 mg Q4H PRN PO 02/26/17 11:45 (Zofran Inj) 4 mg Q6H PRN IVP 02/26/17 11:45 (Narcan Inj) 0.4 mg UNSCH PRN IV 02/26/17 11:45 (Milk Of Magnesia Liq) 30 ml Q12H PRN PO 02/26/17 11:45 03/01/17 09:51 Patient Own Medication PT OWN MED: MELATO... HS PO 02/26/17 21:00 Hold (Percocet 7.5-325 Mg) 1 tab Q4H PRN PO 02/26/17 11:45 02/27/17 14:35 (Percocet 10-325 Mg) 1 tab Q4H PRN PO 02/26/17 11:45 03/01/17 09:52 (Dilaudid) 0.5 mg Q3HR PRN PO 02/26/17 11:45 02/27/17 16:49 (Ada-Colace) 1 tab BID PRN PO 02/26/17 21:00 (Catapres) 0.1 mg Q6H PRN PO 02/26/17 11:45 (Vasotec) 10 mg DAILY PO 02/27/17 09:00 03/01/17 09:51 Hydrochlorothiazide 25 mg 25 mg DAILY PO 02/27/17 09:00 03/01/17 09:51 Sodium Chloride 1,000 ml @ 84 mls/hr [id number] IV 02/26/17 16:30 03/01/17 05:13 (Lr 1000 ml Inj) 1,000 ml @ 30 mls/hr Q24H PRN IV 02/26/17 22:00 03/01/17 21:59 (Ecotrin Ec) 325 mg DAILY PO 02/28/17 09:00 03/01/17 09:51 (Zofran Inj) 4 mg Q6H PRN IV PUSH 02/27/17 12:15 (Protonix) 40 mg HS PO 02/27/17 21:00 02/28/17 19:59 (Tylenol) 650 mg Q4H PRN PO 02/27/17 12:15 (Milk Of Magnesia Liq) 30 ml DAILY PRN PO 02/27/17 12:15 (Ambien) 5 mg HS PRN PO 02/27/17 12:15 (Surfak) 240 mg HS PO 02/27/17 21:00 (Percocet 5-325 Mg) 1 tab Q4H PRN PO 02/27/17 12:15 (Percocet 10-325 Mg) 1 tab Q4H PRN PO 02/27/17 12:15 (Morphine Inj) 4 mg Q4H PRN IV PUSH 02/27/17 12:15 03/01/17 05:13 (NovoLIN R SUPPLEMENTAL SCALE) 1 Q6HR SQ 02/27/17 18:00 (D50w (Vial) Inj) 50 ml UNSCH PRN IV PUSH 02/27/17 12:15 (Glucagon Inj) 1 mg UNSCH PRN OTHER 02/27/17 12:15 (Neurontin) 100 mg TID PO 03/01/17 13:00 A/P Assessment and Plan 62 year old female with past left 2nd/5th toes amputation 2/2 PAD, left fem to anterior tibial artery bypass that was done on 10/30/16 with following increase in discoloration and pain. Assessed and managed by vascular surgery outpatient. S/P BKA on 02/27/17. Consultation with PMR will be arranged for the pt to continue on to rehab. Discharge Planning Pending clearance by vascular surgery. Discharge to rehab. Problem List: (1) Amputation of left lower extremity below knee Status: Acute Plan: Pt presented with discoloration, decreased circulation and foot pain in left foot, s/p left femoral to anterior tibial artery bypass done on 10/30/16. S/P Left BKA on 02/27/17, POD #2 -Vascular surgery managing, Appreciate intervention and recommendations -Anticipate dressing removal on 03/01 and stump protector placement -Continue to monitor for bleeding, signs of infection Pain control: Percocet 17171 Q4hrs for pain 610 Percocet 7.5325 Q4hrs for pain 1-5 Dilaudid 0.5 mg Q3hrs PRN breakthrough Gabapentin 100mg TID was added to her medication regiment to aid in alleviation of phantom pain. Adjust as needed (2) HTN (hypertension) Status: Chronic Plan: Chronic Hypertension -Continue home medications -Enalapril 10 mg daily -Hydrochlorothiazide 25 mg daily (3) Lung nodule Status: Acute Plan: Patient reports history of lung nodule. Long-standing history of smoking. -Chest CT 02/27/17: Stable 6 mm nodule in the right lower lung. Follow-up exam recommended in 12 months. Mild scattered areas of interstitial scarring peripherally in both lungs. (4) Left carotid bruit Status: Acute Plan: Left carotid bruit heard on exam. History of PAD. * Carotid ultrasound 02/27: Moderate visible plaque formation bilaterally with velocity measurements most characteristic of a mild to moderate bilateral carotid stenosis. (5) FEN Status: Acute Plan: Fluids - Currently on maintenance Electrolytes -Monitor and correct as needed Nutrition -Regular diet, supplemented with ensure Prophylaxis -GISELLA, Prateek coronado, Pt POD #1 we'll hold off on additional chemoprophylaxis to avoid bleeding Problem Qualifiers (1) HTN (hypertension): Qualified Code: I15.0 - Renovascular hypertension Jeremías Lala MD R1 Mar 01, 2017 11:00
[2017-03-01 12:00] VITALS: BP 154/83; PULSE 102; RESP 16; TEMP 99; O2SAT 97
[2017-03-01] MEDS: GABAPENTIN 100 MG CAP PO SCH ×2 (12:01→18:28)
--- NOTE | 2017-03-01 12:48 | PD.VS.PN ---
Subjective POD #: 2 Procedure(s): left BKA Subjective/Hospital Course No complaints Pain Controlled L BKA dressing intact I/C/D (Maira Pena) Objective Vitals/I&O Date Time Temp Pulse Resp B/P Pulse Ox O2 Delivery O2 Flow Rate FiO2 03/01/17 08:00 98.2 106 18 161/78 96 02/28/17 23:10 98.4 95 17 147/79 97 02/28/17 20:10 98.0 108 17 97 02/28/17 17:14 16 02/28/17 16:00 97.1 86 18 140/70 97 02/28/17 15:30 16 03/01/17 03/01/17 03/01/17 07:00 15:00 23:00 Intake Total 1007 ml Balance 1007 ml Exam: GENERAL: GCS15,NAD, A&OX3 SKIN: Warm and dry/ Left BKA incision intact with staple closure no R/D/S/O present LE warm w/ motor intact Laboratory Laboratory Tests Test 03/01/17 06:40 White Blood Count 8.4 Red Blood Count 3.33 Hemoglobin 9.8 Hematocrit 28.5 Mean Corpuscular Volume 85.6 Mean Corpuscular Hemoglobin 29.3 Mean Corpuscular Hemoglobin 34.3 Concent Red Cell Distribution Width 14.5 Platelet Count 219 Mean Platelet Volume 7.8 Neutrophils (%) (Auto) 75.8 Lymphocytes (%) (Auto) 14.3 Monocytes (%) (Auto) 8.1 Eosinophils (%) (Auto) 1.3 Basophils (%) (Auto) 0.5 Neutrophils # (Auto) 6.4 Lymphocytes # (Auto) 1.2 Monocytes # (Auto) 0.7 Eosinophils # (Auto) 0.1 Basophils # (Auto) 0.0 CBC Comment DIFF FINAL Differential Comment Sodium Level 141 Potassium Level 3.4 Chloride Level 106 Carbon Dioxide Level 26.9 Anion Gap 8 Blood Urea Nitrogen 13 Creatinine 0.59 Estimat Glomerular Filtration 103 Rate Random Glucose 95 Calcium Level 8.0 Total Bilirubin 0.3 Aspartate Amino Transf 44 (AST/SGOT) Alanine Aminotransferase 11 (ALT/SGPT) Alkaline Phosphatase 51 Total Protein 5.4 Albumin 2.4 (Maira Pena) Assessment and Plan Assessment: (1) Ischemic foot pain at rest Status: Acute Plan S/P Left BKA, doing well post operatively Pain controlled Plan Removed Left BKA dressing Stump protector to be placed today with stocking per OPC Apply overhead frame w/ trapeze Pt cleared for [facility] from a Vascular Standpoint Will arrange for out patient follow up Maira JASMINE [facility] [phone] Discharge Planning [facility] placement ok from a vascular standpoint (Maira Pena) Plan I agree with above A/P. Discharge planning and follow up in 4 weeks for staple removal. Lino Almazan DO, FACS (Lino Almazan DO) Maira Pena Mar 01, 2017 12:48 Lino Almazan DO Mar 01, 2017 13:28
[2017-03-01 16:00] VITALS: BP 142/75; PULSE 96; RESP 16; TEMP 98; O2SAT 98
[2017-03-01 19:00] VITALS: BP 143/78; PULSE 99; RESP 17; TEMP 97.8; O2SAT 97
[2017-03-01] MEDS: PANTOPRAZOLE SOD 40 MG DELAYED RELEASE TAB PO SCH (20:32)
[2017-03-01] MEDS: DOCUSATE CALCIUM 240 MG CAP PO SCH (20:32)
[2017-03-02] VITALS: BP 135/78; PULSE 97; RESP 16; TEMP 97.9; O2SAT 99
[2017-03-02] MEDS: SODIUM CHLOR 0.9% 1000 ML INJ 1,000 ML IV SCH ×2 (03:55→15:03)
[2017-03-02] MEDS: oxyCODONE/ACETAMINOPHEN 10 MG/325 MG TAB PO PRN ×4 (04:59→17:40)
[2017-03-02] MEDS: INSULIN NovoLIN REGULAR SUPPLEMENTAL SCALE SQ SCH ×2 (05:57→12:00)
[2017-03-02 08:00] VITALS: BP 118/64; PULSE 88; RESP 16; TEMP 98.3; O2SAT 97
[2017-03-02] MEDS: SODIUM CHLORIDE 0.9% FLUSH 10 ML FLUSH IV FLUSH SCH (09:00)
[2017-03-02] MEDS: HYDROCHLOROTHIAZIDE 25 MG TAB PO SCH (10:11)
[2017-03-02] MEDS: ENALAPRIL MALEATE 10 MG TAB PO SCH (10:12)
[2017-03-02] MEDS: ASPIRIN EC 325 MG TABEC PO SCH (10:12)
[2017-03-02] MEDS: GABAPENTIN 100 MG CAP PO SCH ×3 (10:12→17:13)
[2017-03-02 12:00] VITALS: BP 132/65; PULSE 87; RESP 16; TEMP 97.8; O2SAT 98
[2017-03-02 12:26] LABS: BACTERIA, URINE MOD /hpf; BLOOD, URINE TRACE (NEG); COMMENT (UR) CULTURE INDICATED; CULTURE IF INDICATED CULTURE INDICATED; GLUCOSE,URINE NEG (NEG); KETONE, URINE TRACE mg/dL (NEG); MUCUS URINE FEW /lpf (OCC); NITRITE,URINE NEG (NEG); TRIPLE PHOSPHATE CRYSTAL,URINE FEW /hpf
[2017-03-02 12:28] LABS: URINE COLOR LIGHT-GREEN (YELLW/STRAW)
[2017-03-02] MEDS ORDERED: GABA100C4 PO (15:10)
[2017-03-02] MEDS ORDERED: OXYC1TAB35 PO (15:10)
[2017-03-02] MEDS ORDERED: OXYC1TAB36 PO (15:10)
--- NOTE | 2017-03-02 15:11 | HHI.DS ---
Discharge Summary Admission Date Feb 26, 2017 at 11:21 Admitting Diagnosis peripheral arterial disease (1) Amputation of left lower extremity below knee Plan: Pt presented with discoloration, decreased circulation and foot pain in left foot, s/p left femoral to anterior tibial artery bypass done on 10/30/16. S/P Left BKA on 02/27/17, POD #2 -Vascular surgery managing, Appreciate intervention and recommendations -Anticipate dressing removal on 03/01 and stump protector placement -Continue to monitor for bleeding, signs of infection Pain control: Percocet 13362 Q4hrs for pain 610 Percocet 7.5325 Q4hrs for pain 1-5 Dilaudid 0.5 mg Q3hrs PRN breakthrough Gabapentin 100mg TID was added to her medication regiment to aid in alleviation of phantom pain. Adjust as needed (2) HTN (hypertension) Plan: Chronic Hypertension -Continue home medications -Enalapril 10 mg daily -Hydrochlorothiazide 25 mg daily (3) Lung nodule Plan: Patient reports history of lung nodule. Long-standing history of smoking. -Chest CT 02/27/17: Stable 6 mm nodule in the right lower lung. Follow-up exam recommended in 12 months. Mild scattered areas of interstitial scarring peripherally in both lungs. (4) Left carotid bruit Plan: Left carotid bruit heard on exam. History of PAD. * Carotid ultrasound 02/27: Moderate visible plaque formation bilaterally with velocity measurements most characteristic of a mild to moderate bilateral carotid stenosis. (5) FEN Plan: Fluids - Currently on maintenance Electrolytes -Monitor and correct as needed Nutrition -Regular diet, supplemented with ensure Prophylaxis -GISELLA, Prateek coronado, Pt POD #1 we'll hold off on additional chemoprophylaxis to avoid bleeding Procedures s/p left BKA on 02/27/17 Brief History Patient is a 62 year old female with past history of PAD, HTN and left toe 2nd/ 5th toe amputation who came into the ED with complaint of left foot pain and discoloration. Patient was being seen outpatient by Dr. Almazan[facility] clinic following left femoral to anterior tibal artery bypass that was done on . She continued to have foot pain and discoloration following the bypass and discussed options with her vascular surgeon. She states she was advised to come into the ED if the pain greatly increased, for the possibility of a below knee amputation. The pain greatly increased over the last 2 days, pain meds did not help much. It's described as numb, cold, "a million bees," shooting pains, constant, 10/10, rubbing makes it better sometimes, not taking pain pills makes it worse (oxycodone). She hasn't slept in 3 days, cant eat, in a fog from sleep deprivation. She also notes that her hip hurts now secondary to having to change her gait in order to limit stepping on her foot. She also notes there has been an area on her left foot where her second toe was removed that has had discharge over the past few days. She states her left foot has gotten dark in color. No other complaints of nausea, vomiting, fever, chills, chest pain, shortness of breath, abdominal pain, change in bowel habits, change in urinary habits. She does note that she has diarrhea, however this is not a change from normal as she has had chronic diarrhea since 2011 with no diagnosis. CBC/BMP: 03/01/17 0640 03/01/17 0640 Significant Findings Laboratory Tests Test 02/28/17 03/01/17 03/02/17 06:56 06:40 11:50 Red Blood Count 3.34 MIL/MM3 3.33 MIL/MM3 (4.00-5.30) (4.00-5.30) Hemoglobin 9.8 GM/DL 9.8 GM/DL (11.6-15.3) (11.6-15.3) Hematocrit 28.9 % 28.5 % (35.0-46.0) (35.0-46.0) Chloride Level 110 MEQ/L (98-107) Blood Urea Nitrogen 26 MG/DL (7-18) Estimat Glomerular Filtration 72 ML/MIN (>89) Rate Calcium Level 7.9 MG/DL 8.0 MG/DL (8.5-10.1) (8.5-10.1) Alanine Aminotransferase 9 U/L (10-53) (ALT/SGPT) Total Protein 5.3 GM/DL 5.4 GM/DL (6.4-8.2) (6.4-8.2) Albumin 2.4 GM/DL 2.4 GM/DL (3.4-5.0) (3.4-5.0) Neutrophils (%) (Auto) 75.8 % (16.0-70.0) Monocytes (%) (Auto) 8.1 % (0.0-8.0) Potassium Level 3.4 MEQ/L (3.5-5.1) Aspartate Amino Transf 44 U/L (15-37) (AST/SGOT) Urine Color LIGHT-GREEN (YELLW/STRAW) Urine Turbidity CLOUDY (CLEAR) Urine Protein GREATER THAN 600 mg/dL (NEG-TRACE) Urine Ketones TRACE mg/dL (NEG) Urine Occult Blood TRACE (NEG) Urine Leukocyte Esterase SMALL (NEG) Urine Triple Phosphate FEW /hpf (NONE) Crystals Urine Bacteria MOD /hpf (NONE) Urine Mucus FEW /lpf (OCC) PE at Discharge GENERAL: Thin, well-developed patient in no apparent distress, She was lying in bed comfortably this morning. SKIN: Warm and dry. HEAD: Normocephalic. EYES: No scleral icterus. No injection or drainage. NECK: Supple, trachea midline. No JVD or lymphadenopathy. Mild bruit of the left carotid CARDIOVASCULAR: Regular rate and rhythm without murmurs, gallops, or rubs. RESPIRATORY: Breath sounds equal bilaterally. No accessory muscle use. GASTROINTESTINAL: Abdomen soft, non-tender, nondistended. MUSCULOSKELETAL: Normal appearance of right lower extremity, except for 1 cm dry , non-erythematous. flat, ulcer near anterior lateral plantar surface. Left lower extremity with BKA, wrapped firmly with Gene bandage and in an immobilizer. No drainage visible through bandage wrap. Normal sensation of left proximal lower extremity. NEURO: Patient is alert and oriented. Pt Condition on Discharge: Stable Discharge Disposition: Rehab Inpatient Discharge Instructions DIET: Follow Instructions for: As Tolerated, No Restrictions Activities you can perform: See Additionl Instruction Other Activity Instructions: Sit independently, stand with assistance, use front wheeled walker with assistance. Jeremías Lala MD R1 Mar 02, 2017 15:11
--- NOTE | 2017-03-02 15:14 | HHI.DCPOC ---
Discharge Care Plan Diagnosis: (1) Amputation of left lower extremity below knee (2) HTN (hypertension) (3) Lung nodule Goals to Promote Your Health * To prevent worsening of your condition and complications * To maintain your health at the optimal level Directions to Meet Your Goals Take your medications as prescribed Follow your dietary instruction Follow activity as directed Keep your appointments as scheduled Take your immunizations and boosters as scheduled If your symptoms worsen call your PCP, if no PCP go to Urgent Care Center or Emergency Room Smoking is Dangerous to Your Health. Avoid second hand smoke Call the 24-hour hour crisis hotline for domestic abuse at Jeremías Lala MD R1 Mar 02, 2017 15:14
--- NOTE | 2017-03-02 15:31 | HHI.FPPN ---
Subjective Remarks Pt seen and examined this morning. AFVSS. No acute events overnight. Pt reports doing well this morning. Her pain has been well controlled. She has been eating well. She denies chest pain, shortness of breath, abdominal pain, constipation. She has been cleared for discharge by vascular surgery. She has no other acute concerns. Objective Vitals Vital Signs Date Time Temp Pulse Resp B/P Pulse Ox O2 Delivery O2 Flow Rate FiO2 03/02/17 12:00 97.8 87 16 132/65 98 03/02/17 08:00 98.3 88 16 118/64 97 03/02/17 00:00 97.9 97 16 135/78 99 03/01/17 19:00 97.8 99 17 143/78 97 03/01/17 16:00 98.0 96 16 142/75 98 I/O 03/01/17 03/01/17 03/01/17 03/02/17 03/02/17 03/02/17 07:00 15:00 23:00 07:00 15:00 23:00 Intake Total 1007 ml 1200 ml 480 ml 240 ml Balance 1007 ml 1200 ml 480 ml 240 ml Intake Oral 360 ml 1200 ml 480 ml 240 ml IV Total 647 ml # Voids 3 7 3 4 # Bowel Movements 0 4 3 0 Result Diagram: 03/01/17 0640 03/01/17 0640 Objective Remarks GENERAL: Thin, well-developed patient in no apparent distress, She was lying in bed comfortably this morning. SKIN: Warm and dry. HEAD: Normocephalic. EYES: No scleral icterus. No injection or drainage. NECK: Supple, trachea midline. No JVD or lymphadenopathy. Mild bruit of the left carotid CARDIOVASCULAR: Regular rate and rhythm without murmurs, gallops, or rubs. RESPIRATORY: Breath sounds equal bilaterally. No accessory muscle use. GASTROINTESTINAL: Abdomen soft, non-tender, nondistended. MUSCULOSKELETAL: Normal appearance of right lower extremity, except for 1 cm dry , non-erythematous, flat, ulcer near anterior lateral plantar surface. No drainage or signs of infection. Left lower extremity with BKA, wrapped firmly with bandage and in an immobilizer. No drainage visible through bandage wrap. Normal sensation of left proximal lower extremity. NEURO: Patient is alert and oriented. Procedures s/p left BKA on 02/27/17 A/P Assessment and Plan 62 year old female with past left 2nd/5th toes amputation 2/2 PAD, left fem to anterior tibial artery bypass that was done on 10/30/16 with following increase in discoloration and pain. Assessed and managed by vascular surgery outpatient. S/P BKA on 02/27/17. Consultation with PMR will be arranged for the pt to continue on to rehab. Discharge Planning Anticipate discharge to [facility] later today. Problem List: (1) Amputation of left lower extremity below knee Status: Acute Plan: Pt presented with discoloration, decreased circulation and foot pain in left foot, s/p left femoral to anterior tibial artery bypass done on 10/30/16. S/P Left BKA on 02/27/17 -Vascular surgery managing, Appreciate intervention and recommendations -Continue to monitor for bleeding, signs of infection Pain control: Percocet 83888 Q4hrs for pain 610 Percocet 7.5325 Q4hrs for pain 1-5 Dilaudid 0.5 mg Q3hrs PRN breakthrough Gabapentin 100mg TID Adjust as needed (2) HTN (hypertension) Status: Chronic Plan: Chronic Hypertension -Continue home medications -Enalapril 10 mg daily -Hydrochlorothiazide 25 mg daily (3) Lung nodule Status: Acute Plan: Patient reports history of lung nodule. Long-standing history of smoking. -Chest CT 02/27/17: Stable 6 mm nodule in the right lower lung. Follow-up exam recommended in 12 months. Mild scattered areas of interstitial scarring peripherally in both lungs. (4) Left carotid bruit Status: Acute Plan: Left carotid bruit heard on exam. History of PAD. * Carotid ultrasound 02/27: Moderate visible plaque formation bilaterally with velocity measurements most characteristic of a mild to moderate bilateral carotid stenosis. (5) FEN Status: Acute Plan: Fluids - Pt tolerating PO, fluids discontinued Electrolytes -Monitor and correct as needed Nutrition -Regular diet, supplemented with ensure Prophylaxis -ASA, Prateek hose, ASA Problem Qualifiers (1) HTN (hypertension): Qualified Code: I15.0 - Renovascular hypertension Nita Pettit MD R3 Mar 02, 2017 15:31 Qualified Code: I15.0 - Renovascular hypertension Nita Pettit MD R3 Mar 02, 2017 15:31
[2017-03-02 16:00] VITALS: BP 141/69; PULSE 89; RESP 20; TEMP 96.9; O2SAT 95
[2017-03-02] MEDS ORDERED: POTASSIUM CHLORIDE 10 MEQ CONTROLLED RELEASE TAB PO ONE (16:00)
[2017-03-02 17:59] LABS: MEAN CELL VOLUME 86.5 FL (80.0-100.0); MEAN CORPUSCULAR HEMOGLOBIN 29.6 PG (27.0-34.0); MEAN CORPUSCULAR HGB CONC 34.2 % (32.0-36.0); PLATELET COUNT 207 TH/MM3 (150-450); RED BLOOD COUNT 3.24 MIL/MM3 (4.00-5.30); RED CELL DISTRIBUTION WIDTH 14.5 % (11.6-17.2); REVIEW FLAG FINAL; WHITE BLOOD COUNT 7.8 TH/MM3 (4.0-11.0)
[2017-03-02 18:29] LABS: BICARBONATE 30.4 MEQ/L (21.0-32.0)
[2017-03-02 19:23] LABS: POTASSIUM 2.9 MEQ/L (3.5-5.1)
== END 2017-03-02 18:33 | DRG 241 ==
LOC: NEPE 08:18 → NEDA 11:21 → N06B 14:48
PROVIDERS: ADMIT Family Medicine; ATTEND Family Medicine
PROC: 0Y6J0Z1 Detachment at Left Lower Leg, High, Open Approach (ICD-10-PCS; principal; 2017-02-27 10:25)
DX: I70.262 Atherosclerosis of native arteries of extremities with gangrene, left leg (principal); G54.6 Phantom limb syndrome with pain; I10 Essential (primary) hypertension; I65.23 Occlusion and stenosis of bilateral carotid arteries; S91.302A Unspecified open wound, left foot, initial encounter; M81.0 Age-related osteoporosis without current pathological fracture; Z89.422 Acquired absence of other left toe(s); L97.529 Non-pressure chronic ulcer of other part of left foot with unspecified severity; Z72.820 Sleep deprivation; Z87.891 Personal history of nicotine dependence; R91.1 Solitary pulmonary nodule; R19.7 Diarrhea, unspecified
CPT/HCPCS: 71260; 73630; 80048; 80053; 81001; 82948; 85025; 85027; 85610; 85652; 85730; 86140; 86850; 86900; 86901; 86920; 87086; 88307; 88311; 93005; 93880; 94150; 96374; J0131; J0690; J1100; J1170; J2250; J2270; J2370; J2405; J2710; J3010; J3370; J7030; J7050; L1830; Q9967

== ENCOUNTER 2017-11-27 10:56 | Day surgery (SDC) | payer BC ==
[~2017-11-27] VITALS: Ht 165.1 cm; Wt 53.1 kg
[~2017-11-27 10:56] MED LIST changes: +COMMODE 3-IN-11 MIS; +GABA100C4 PO; +HYDR25TA5 PO; -MAPA500C PO; -MELA10TA PO; +OXYC1TAB35 PO; +PANT40TA3 PO; -TRAM50TA PO; -VASE1025 PO; +WHEEMIS3; +[UNRECOGNIZED DRUG - OTHER]
[2017-11-27] MEDS ORDERED: IOHEXOL 350 MG/ML 50 ML BTL (for Cath Lab) OTHER ONE (10:57)
[2017-11-27] MEDS ORDERED: VASE1025 (11:18)
[2017-11-27] MEDS ORDERED: METO25TA3 PO (11:18)
[2017-11-27] MEDS ORDERED: MELA1TAB18 PO (11:18)
[2017-11-27] MEDS ORDERED: MELO7.5T27 PO (11:18)
[2017-11-27] MEDS ORDERED: TYLE325T PO (11:18)
[2017-11-27 11:31] VITALS: BP 173/103; PULSE 69; RESP 18; TEMP 98; O2SAT 99
--- NOTE | 2017-11-27 11:40 | HHI.HP ---
History of Present Illness Chief Complaint: R LE pain, numbness History of Present Illness 62 yo female with PAD and h/o L BKA with worsening R LE pain, diminishing ABIs Past/Family/Social History Past Medical History PAD OA HTN migraines Past Surgical History L BKA carpel tunnel release Tonsillectomy Social History former smoker Family History NC Home Medications Active Scripts Pantoprazole (Pantoprazole) 40 Mg Tab, 40 MG PO DAILY for 30 Days, TAB Prov:Jeremías Hernandez MD 03/15/17 Hydrochlorothiazide (Hydrochlorothiazide) 25 Mg Tab, 25 MG PO DAILY for 30 Days , TAB Prov:Jeremías Hernandez MD 03/15/17 Clopidogrel (Clopidogrel) 75 Mg Tab, 75 MG PO DAILY for Blood Clot Prevention for 30 Days, TAB 0 Refills Prov:Jeremías Hernandez MD 03/15/17 Reported Medications Metoprolol Tartrate (Metoprolol Tartrate) 25 Mg Tab, 25 MG PO BID, #60 TAB 0 Refills 11/27/17 Meloxicam (Meloxicam) 7.5 Mg Tab, 10 MG PO DAILY for Arthritis Pain, TAB 0 Refills 11/27/17 Enalapril-Hydrochlorothiazide (Vaseretic) 10-25 Mg Tab 11/27/17 Acetaminophen (Tylenol) 325 Mg Tab, 162.5 MG PO Q4H, TAB 0 Refills 11/27/17 Melatonin (Melatonin) 10 Mg-1 Mg Tab, 10 MG PO HS Y for SLEEP, TAB 0 Refills 11/27/17 Alendronate (Fosamax) 70 Mg Tab, 70 MG PO Q7D for Osteoporosis Treatment, TAB 06/29/16 Discontinued Scripts Oxycodone-Acetaminophen (Oxycodone-Acetaminophen) 7.5-325 mg Tab, 1 TAB PO Q6HR Y for PAIN SCALE 6 TO 10, #60 TAB Prov:Jeremías Hernandez MD 03/15/17 Gabapentin (Gabapentin) 100 Mg Cap, 100 MG PO TID, #90 CAP 0 Refills Prov:Jeremías Hernandez MD 03/15/17 [axillary crutches] No Conflict Check, EA, #1 Prov:Yovani Garner 03/12/17 Commode 3-in-1 (Commode 3-in-1) 1 Mis Mis, 1 EA .ROUTE DIRECTED, #1 EA 0 Refills Prov:Yovani Garner SPIN TANK TENDER 03/12/17 Wheelchair (Wheelchair) 1 Mis Mis, 1 EA .ROUTE DIRECTED, #1 EA 0 Refills Prov:Yovani Garner SPIN TANK TENDER 03/12/17 Coded Allergies: codeine (Unverified Adverse Reaction, Mild, Dizziness, 11/27/17) morphine (Unverified Adverse Reaction, Mild, Nausea/Vomiting, 11/27/17) Uncoded Allergies: Sulfonylureas (Adverse Reaction, Intermediate, Diarrhea, 02/26/17) Review of Systems Constitutional: DENIES: Fever, Chills Physical Exam Neuro: alert, oriented HEENT: NC/AT Neck: trachea midline Heart: reg rate Lungs: clear Extremities: no R leg rashes pending will make in OR Caprini VTE Risk Assessment Caprini VTE Risk Assessment: No/Low Risk (score <= 1) Caprini Risk Assessment Model Point Value = 1 Point Value = 2 Point Value = 3 Point Value = 5 Age 41-60 Minor surgery BMI > 25 kg/m2 Swollen legs Varicose veins or History of unexplained or recurrent spontaneous Oral contraceptives or hormone replacement Sepsis (< 1 month) Serious lung disease, including pneumonia (< 1 month) Abnormal pulmonary function Acute myocardial infarction Congestive heart failure (< 1 month) History of inflammatory bowel disease Medical patient at bed rest Age 61-74 Arthroscopic surgery Major open surgery (> 45 min) Laparoscopic surgery (> 45 min) Malignancy Confined to bed (> 72 hours) Immobilizing plaster cast Central venous access Age >= 75 History of VTE Family history of VTE Factor V Leiden Prothrombin [id number] Lupus anticoagulant Anticardiolipin antibodies Elevated serum homocysteine Heparin-induced thrombocytopenia Other congenital or acquired thrombophilia Stroke (< 1 month) Elective arthroplasty Hip, pelvis, or leg fracture Acute spinal cord injury (< 1 month) Prophylaxis Regimen Total Risk Factor Score Risk Level Prophylaxis Regimen 0-1 Low Early ambulation 2 Moderate Order ONE of the following: *Sequential Compression Device (SCD) *Heparin 5000 units SQ BID 3-4 Higher Order ONE of the following medications: *Heparin 5000 units SQ TID *Enoxaparin/Lovenox 40 mg SQ daily (WT < 150 kg, CrCl > 30 mL/min) *Enoxaparin/Lovenox 30 mg SQ daily (WT < 150 kg, CrCl > 10-29 mL/min) *Enoxaparin/Lovenox 30 mg SQ BID (WT < 150 kg, CrCl > 30 mL/min) AND/OR *Sequential Compression Device (SCD) 5 or more Highest Order ONE of the following medications: *Heparin 5000 units SQ TID (Preferred with Epidurals) *Enoxaparin/Lovenox 40 mg SQ daily (WT < 150 kg, CrCl > 30 mL/min) *Enoxaparin/Lovenox 30 mg SQ daily (WT < 150 kg, CrCl > 10-29 mL/min) *Enoxaparin/Lovenox 30 mg SQ BID (WT < 150 kg, CrCl > 30 mL/min) AND *Sequential Compression Device (SCD) Assessment and Plan Plan R LE angiogram and possible endovascular intervention d/c later today brother in waiting room Discharge Planning later today Horace Meza MD November 27, 2017 11:40
[2017-11-27] MEDS ORDERED: SODIUM BICARBONATE 100 MEQ in D5W 1000 ML IV SCH (12:00)
[2017-11-27 12:03] LABS: CREATININE 1.38 MG/DL (0.50-1.00)
[2017-11-27] MEDS ORDERED: HEPARIN SODIUM - IV 10,000 UNITS/10 ML VIAL ONE (12:56)
[2017-11-27] MEDS ORDERED: LIDOCAINE HCL 1% PF 30 ML VIAL ONE (12:56)
[2017-11-27] MEDS ORDERED: MIDAZOLAM HCL 2 MG/2 ML VIAL ONE ×2 (12:56→13:20)
[2017-11-27] MEDS ORDERED: HEPARIN-NS/PF FLUSH BAG 1,000 ML IV FLUSH ONE (12:56)
--- NOTE | 2017-11-27 13:50 | HHI.PR ---
cc: Horace Meza MD Immediate Post Op Note Procedure Date: November 27, 2017 Pre Op Diagnosis: PAD, R LE Post Op Diagnosis: same Surgeon: Horace Meza Hoop Puncher(s): none Procedure: Aortogram w/ R LE angiogram R SFA LEAD SHOP OPERATOR L BAKER HELPER Angioseal Findings: 1. no HD significant inflow disease 2. Mid SFA stenosis with smooth dissection, successful LEAD SHOP OPERATOR 3. Popliteal occlusion with perigeniculate collaterals giving rise to peroneal and AT Complications: none Specimen(s) removed: none Estimated blood loss: 10mL Anesthesia: MAC Drains: None Patient to: Other (DOCU) Patient Condition: Good Implant/Devices: SEE IMPLANT LOG (if applicable) Date/Time of Procedure: SEE SURGICAL CARE RECORD Horace Meza MD November 27, 2017 13:50
[2017-11-27] MEDS ORDERED: CLOPIDOGREL 75 MG TAB PO ONE (14:00)
--- NOTE | 2017-11-27 15:19 | MP ---
cc: Horace Meza MD DATE OF OPERATION: 11/27/2017 PREOPERATIVE DIAGNOSIS: Right lower extremity pain, peripheral arterial occlusive disease. POSTOPERATIVE DIAGNOSIS: Right lower extremity pain, peripheral arterial occlusive disease. PROCEDURE PERFORMED: 1. Aortogram with right lower extremity angiogram. 2. Right SFA angioplasty with 5 mm balloon. 3. Left common femoral artery Angio-Seal. ATTENDING SURGEON: Horace Meza MD ANESTHESIA: Local with sedation. INDICATIONS: Mrs. Garcia is a 62-year-old lady who has right lower extremity pain and near rest pain. She has a history of a left below-knee amputation. She was taken to the operating room for angiographic evaluation and treatment of her right lower extremity as she has diminished ABIs. There was no prior catheterization available for my review since her lower ABIs. DESCRIPTION OF PROCEDURE: Informed consent was obtained from the patient. She was taken to the operating room and placed supine on the operating table. An appropriate timeout was taken to ensure the patient's identity, operative site, and planned procedure. The administration of antibiotics was not necessary since this is a clean procedure without planned implantation of any foreign object. Everyone in the room agreed with timeout and we proceeded. Her bilateral groins were prepped and draped. The left groin was anesthetized with 1% lidocaine. A 21-gauge micropuncture needle was used to access the left common femoral artery. This was exchanged using Seldinger technique through micropuncture sheath, through which a 0.035 Glidewire was introduced and the micropuncture sheath was changed for a 4-Bahamian sheath. A VCF catheter was placed over the wire and through the sheath and aortogram and pelvic arteriogram with oblique views was obtained. The Glidewire was reintroduced and navigated down to the right common femoral artery and the VCF catheter was advanced over this and a right lower extremity arteriogram was obtained. The patient was systemically heparinized with 5000 units of IV heparin. A Cr wire was introduced to the mid SFA and the VCF catheter and 4-Bahamian sheath were removed and a 6-Bahamian 55 cm Rachid sheath was then introduced. The Cr was exchanged for MEDICAL EDUCATION SPECIALIST wire. We were able to navigate the MEDICAL EDUCATION SPECIALIST wire down to the popliteal artery and an 0.18 CXI catheter and an 0.035 CXI catheter was advanced over this. The 0.18 wire and 0.014 wire and 0.018 catheter were then removed and angiogram confirmed we were indeed in the popliteal artery. A Cr wire was reintroduced and the entire SFA was angioplastied with a 5 x 200 balloon. The completion angiogram showed excellent result without any recoil or extravasation. The wire, catheter and sheath were removed and the groin was closed with Angio-Seal. There were no complications. I was present and scrubbed for the entire procedure. INTERPRETATION OF IMAGES: The patient has a patent infrarenal aorta, common iliac arteries, external iliac arteries. The proximal right external iliac artery is somewhat tortuous, but there is no hemodynamically significant stenosis. The right common femoral artery is patent. Profunda is patent. The SFA is patent. There appears to be atherosclerotic plaque or dissection in the mid SFA that appears hemodynamically significant. The popliteal artery was occluded, but the perigeniculate collaterals gave rise to the peroneal and eventually the anterior tibial artery, which continues on down to the foot. After angioplasty of the SFA, there was no more flow limiting stenosis identified. Horace Meza MD RJF/TL , 02:26 PM , 03:18 PM
== END 2017-11-27 17:40 | disposition home or self-care (01) ==
LOC: HDIC 10:56 → HSDC 10:56
PROVIDERS: ATTEND Surgery
DX: M79.661 Pain in right lower leg (principal); R20.0 Anesthesia of skin; Z89.512 Acquired absence of left leg below knee; I10 Essential (primary) hypertension; I73.9 Peripheral vascular disease, unspecified; Z87.891 Personal history of nicotine dependence
CPT/HCPCS: 37224; 75625; 75710; 82565; 99152; 99153; C1725; C1751; C1760; C1769; C1887; C1893; G0269; J1644; J2250; J3010; Q9967